=== PATIENT | male | born 1985 | race Caucasian/White ===

== ENCOUNTER 2019-01-23 14:10 | Emergency (ER) | payer MEDICAID, SELFPAY ==
[2019-01-23 14:12] VITALS: BP 124/74; PULSE 106; RESP 18; TEMP 36.7; O2SAT 98; BMI 16.7
--- NOTE | 2019-01-23 14:26 | ED.VISSUMM ---
- ER Visit Summary Date of Service: 01/23/19 Chief Complaint: Bilateral eye pain, redness and watering. History of Present Illness: The patient is a 33 M who wears contact lenses. History of prior polysubstance drug abuse. Patient states he uses contacts for 3 to 4 months. These been for extended periods of time. When he moved in 2 days ago he thinks he injured his eyes. They are red. They are watering. There is no discharge. He denies any visual change. He does have light sensitivity. No prior eye surgery. Physical Examination: Young male no acute distress. Vital signs are stable and afebrile. H EENT exam pupils are unreactive light. Motions are intact. Is mild swelling of the upper and lower lids. Both eyes are injected. They are watering. There is no discharge. There is no periorbital cellulitis. No proptosis. No preauricular lymphadenopathy. There is no facial trauma or otherwise facial swelling. Neck nontender no lymphadenopathy. Lungs clear to auscultation. Heart regular rhythm no murmur. Abdomen soft nontender. Patient moving all 4 extremities. Fluorescein stain to both eyes and tetracaine. Tetracaine gave him relief quickly.'s exam of the right eye showed injection and watering but otherwise unremarkable. Slit-lamp exam the left eye showed a corneal abrasion from 12:00 to 6:00. There was no ulcer. Test Results: None Emergency Department Course and Treatment: Both eyes will be locally anesthetized with tetracaine and fluorescein stain. Slit-lamp examination was performed Treatment Plan: Tetracaine for pain next 24 hours. Bacitracin ophthalmic ointment to both eyes 4 times a day. Follow-up with ophthalmology Dr. Stephenson Disposition: Discharge Impression: Acute bilateral eye pain secondary to contact conjunctivitis Left eye corneal abrasion This note was generated with [employer] dictation software. It may contain incorrect words, spelling, and punctuation that were not noted in review of the chart prior to signing ED Disposition - Plan for ED Patient: Referrals: Care Physician,No Primary [Primary Care Provider] -
--- NOTE | 2019-01-23 14:42 | ED.DEP ---
ED Disposition - Plan for ED Patient: Disposition: Home or Assisted Living Instructions: CORNEAL INJURY, Contact Lens, ED Corneal Abrasion Prescriptions: Bacitracin/Polymyxin B Sulfate [Bacitracin-Polymyxin Eye Oint] 3.5 gm OP 4X/DAY PRN PRN 5 Days #1 oint...g. PRN Reason: Wound Care Prescription Printed Referrals: Daniel Stephenson MD [STAFF PHYSICIAN] - 2 Days Additional Instructions: Cool compresses to both eyes 3 times a day for the next 3 days. Absolutely no contact lens use until okayed by the monitor technician. Use your glasses. When you could restart using your contacts no more than 12 hours at a time. Must be taken out each day. You have irritation of both eyes from your contacts. You also have a corneal abrasion of your left eye. Eye ointment 4 times a day to each eye. Follow-up with the monitor technician Dr. Stephenson.
[2019-01-23] MEDS: Tetracaine 0.5% Ophthalmic Bottle 5 DRP EACH EYE (14:43)
[2019-01-23] MEDS: Fluorescein 1 MG STRIP 1 STRIP EACH EYE (14:43)
== END 2019-01-23 15:06 | disposition home or self-care (01) ==
LOC: ED 14:50
PROVIDERS: Emergency Provider Emergency Medicine; Family Provider Family Medicine; PCP Family Medicine
DX: H10.33 Unspecified acute conjunctivitis, bilateral (principal); H18.822 Corneal disorder due to contact lens, left eye; F15.90 Other stimulant use, unspecified, uncomplicated; F14.90 Cocaine use, unspecified, uncomplicated; F12.90 Cannabis use, unspecified, uncomplicated; F11.90 Opioid use, unspecified, uncomplicated; Z72.0 Tobacco use
CPT/HCPCS: 99282

== ENCOUNTER 2019-08-19 07:12 | Observation (INO) | payer MEDICAID, SELFPAY ==
[2019-08-19] VITALS (10 sets, daily range): BP systolic 99–116; BP diastolic 72–89; PULSE 66–88; RESP 10–23; TEMP 36.1–36.7; O2SAT 100; BMI 19.5; BMI 17.2; BMI 64.3
--- NOTE | 2019-08-19 07:20 | RAD_ITS ---
STUDY: X-RAY - RIGHT ANKLE REASON FOR EXAM: Male, 34 years old. PATIENT ROLLED HIS RIGHT ANKLE. PAIN RIGHT ANKLE AND RIGHT LOWER LEG DISTALLY. TECHNIQUE: 3 view(s) of the ankle. COMPARISON: None. FINDINGS: Acute oblique fracture of the distal tibial shaft extending to the distal tibial metaphyses and anterior malleolus. Normal distal fibula. Normal medial and lateral malleoli. Normal tibiotalar articulation and ankle mortise. Normal visualized talus and calcaneus. The visualized subtalar, talonavicular, calcaneocuboid and tarsal articulations are normal. Soft tissue swelling around the right ankle. RAD/Ankle min 3 Views IMPRESSION: Acute oblique fracture of the right distal tibial shaft extending to the distal tibial metaphyses and anterior tibial malleolus. Electronically Signed: Dutch Mckinley MD at 8:28 EDT , Service support ,
--- NOTE | 2019-08-19 07:20 | RAD_ITS ---
STUDY: X-RAY - RIGHT TIBIA AND FIBULA REASON FOR EXAM: Male, 34 years old. PATIENT ROLLED HIS RIGHT ANKLE. PAIN RIGHT ANKLE AND RIGHT LOWER LEG DISTALLY. TECHNIQUE: 2 view(s) of the tibia and fibula were obtained. COMPARISON: None. FINDINGS: Normal visualized tibia. Normal visualized fibula. The distal tibia and fibula are not included on the radiographs. The soft tissue structures are unremarkable. RAD/Tibia & Fibula 2 Views IMPRESSION: Normal x-ray examination of the visualized tibia and fibula. Electronically Signed: Sim Andujar DO at 8:06 EDT Tel [phone], Service support ,
--- NOTE | 2019-08-19 07:22 | ED.DCSUM_ITS ---
History of Present Illness Chief Complaint: Lower Extremity Injury Informant: Patient Onset: Today Narrative: 34-year-old male with no past medical history presents with concern for right leg pain. States that he slipped on some loose gravel and injured his right ankle and lower extremity. States that the pain is sharp and nonradiating. Denies any head injury. Denies any numbness or tingling. States that he is unable to bear weight. Brought in by EMS. Past Medical History - Allergies and Home Meds Allergies/Adverse Reactions: Allergies No Known Allergies Allergy (Verified 08/19/19 07:13) Past Medical History: None Surgical History: - - ortho Lives: Alone Smoking Status: Current every day smoker Alcohol: None Drugs: None Review of Systems General: Denies: Chills, Fever, Sweats Eyes: Denies: Visual changes - bilaterally, Diplopia ENT: Denies: Rhinorrhea, Sore throat Cardiovascular: Denies: Chest pain, Palpitations Respiratory: Denies: Dyspnea, Cough, Dyspnea on exertion Gastrointestinal: Denies: Abdominal pain, Nausea, Vomiting, Diarrhea, Melena, H ematochezia Genitourinary: Denies: Dysuria, Hematuria, Frequency Musculoskeletal: Reports: Arthralgias. Denies: Back pain, Extremity Pain Skin: Denies: Rash, Wounds Neurological: Denies: Headache, Weakness, Numbness Physical Exam Vital Signs/Narrative: Vital Signs Temp Pulse Resp BP Pulse Ox 08/19/19 07:13 98.1 F 88 16 114/82 H 100 General: Well nourished, Well developed, No Acute Distress Head: Normocephalic, Atraumatic Eyes: Perrl, EOMI ENT: Moist mucous membranes, No rhinorrhea Neck: Supple, Nontender Cardiovascular: Regular rate, Regular rhythm, No murmurs Respiratory: No distress, CTA bilaterally, Chest nontender Abdomen: Soft, Nontender, Nondistended, Normal bowel sounds Back: Nontender, Normal Inspection Extremities: No edema, - - TTP in the anterior RLE over the mid-staley. TTP on the right ankle. Full ROM. Strong and palpable DP and PT pulses. Sensation intact. Skin: Normal color, No rash Neurological: Alert, Oriented x3, Cranial nerves II-XII grossly intact, Normal Strength, Normal Sensation Psychological: Normal affect, Normal Mood Diagnostic/Tx/Re-eval Clinical Impression(s) from Imaging Studies Ankle X-Ray 08/19/19 07:20 IMPRESSION: Acute oblique fracture of the right distal tibial shaft extending to the distal tibial metaphyses and anterior tibial malleolus. Electronically Signed: Dutch Mckinley MD at 8:28 EDT , Service support , Tibia/Fibula X-Ray 08/19/19 07:20 IMPRESSION: Normal x-ray examination of the visualized tibia and fibula. Electronically Signed: Sim Andujar DO at 8:06 EDT Tel [phone], Service support , Brain CT 08/19/19 09:14 IMPRESSION: Normal unenhanced CT scan of the brain and unchanged when compared to 04/07/2010. Electronically Signed: Dutch Mckinley MD at 9:46 EDT , Service support , ADDENDUM: 08/19/[address] 08/19/19 09:15 IMPRESSION: 1. No CT evidence of acute fracture or malalignment of the cervical spine and the craniocervical junction. 2. Linear air lucency behind the right sternocleidomastoid muscle. This may be soft tissue emphysema from fall related injury. Electronically Signed: Dutch Mckinley MD at 10:39 EDT , Service support , Lower Extremity CT 08/19/19 09:56 IMPRESSION: Comminuted fractures noted in the distal end of the tibia extending to the distal articular surface. Electronically Signed: Sim Andujar DO at 10:32 EDT Tel [phone], Service support , Laboratory Data 08/19/19 08/19/19 08/19/19 09:03 09:03 09:03 WBC 6.6 RBC 4.62 Hgb 13.8 Hct 41.4 MCV 89.6 MCH 29.9 MCHC 33.3 RDW Std Deviation 40.9 RDW Coeff of Bennie 12.6 Plt Count 201 MPV 10.3 Immature Gran % (Auto) 0.200 Neut % (Auto) 74.1 H Lymph % (Auto) 14.3 L [place] % (Auto) 9.9 Eos % (Auto) 1.2 Baso % (Auto) 0.3 Absolute Neuts (auto) 4.9 Absolute Lymphs (auto) 0.94 Nucleated RBC % 0 Sodium 139 Potassium 3.5 Chloride 104 Carbon Dioxide 29.0 Anion Gap 6 BUN 18 Creatinine 0.72 Estim Creat Clear Calc 151.20 Est GFR (MDRD) Af Amer 162 Est GFR (MDRD) Non-Af 134 BUN/Creatinine Ratio 24.9 H Glucose 93 Calcium 8.4 L Ethyl Alcohol < 3.0 - Rhythm Strip Rhythm Strip: Sinus Rhythm Rate: 75 - EKG Initial EKG Interpretation: Sinus Rhythm - Sinus rhythm at 75 bpm. TX interval of 164 ms. QTC of 477 ms. No evidence of ST elevation or depression at this time. - Medical Decision Making On arrival patient is mentating appropriately but some of his responses are so mewhat slowed and appears he may be intoxicated. X-ray shows evidence of a right tibial peel on fracture. Spoke initially with orthopedic surgeon Dr. Macdonald who suggested foot and ankle specialist. Patient became more somnolent and was more difficult to arouse. Was given a total of 6 mg of Narcan. Patient is currently protecting his airway and has 100% oxygen saturation on room air. He does continue to be difficult to arouse however. No indication for intubation at this time. Spoke with foot and ankle specialist Dr. Wright who is agreeable with repair following a CT which does show that it is intra-articular. Given the patient's continued somnolence he will be admitted to ICU for observation. Patient was splinted with a posterior as well as sugar tong splint using Ortho-Glass. Patient tolerated procedure well. CT brain and cervical spine shows no acute process. KG nonischemic. Other lab work within normal limits. Admitted in stable condition. - Critical Care Time Critical care time (excluding procedures): 30-74 minutes - Mutliple doses of narcan with multiple re-evaluations and discussions with consultants. Procedures - Lower Extremity Splints Lower Extremity Splint: Orthoglass Splint Fabrication: Pre-fabricated Location: Right - Right posterior with sugar tong splint for ankle fracture. ED Disposition - Plan for ED Patient: Disposition: Acute Care Hospital [facility] Diagnosis: Opiate overdose, Altered mental status, Pilon fracture of right tibia
[2019-08-19] MEDS: Ibuprofen 600 MG Tablet PO (07:28)
[2019-08-19] MEDS: Naloxone 2 MG/2 ML Syringe IV ×3 (09:06→09:58)
--- NOTE | 2019-08-19 09:14 | CT_ITS ---
STUDY: CT BRAIN WITHOUT CONTRAST REASON FOR EXAM: Male, 34 years old. MECHANICAL FALL OFF ROOF RADIATION DOSAGE (If Supplied By Facility): CTDIvol = ( 44.99 ) mGy, DLP = ( 779.24 ) mGycm TECHNIQUE: Transaxial CT imaging of the brain was performed without administration of intravenous contrast material. Coronal and sagittal reconstructions were performed. Individualized dose optimization techniques were used for this CT. COMPARISON: CT head without contrast 04/07/2010. FINDINGS: Normal soft tissue structures. Normal calvarium. Normal size ventricles and extra-axial spaces for the patient''s age. Normal white matter tracts of the cerebral hemispheres. Normal basal ganglia and thalami. Normal brainstem. Normal cerebellum. There is no intracranial hemorrhage. There are no findings of an acute ischemic infarction. Normal visualized paranasal sinuses. CT/Brain/Head without Contrast IMPRESSION: Normal unenhanced CT scan of the brain and unchanged when compared to 04/07/2010. Electronically Signed: Dutch Mckinley MD at 9:46 EDT , Service support ,
--- NOTE | 2019-08-19 09:15 | CT_ITS ---
STUDY: CT CERVICAL SPINE WITHOUT CONTRAST REASON FOR EXAM: Male, 34 years old. MECHANICAL FALL OFF ROOF. Hard to arouse. RADIATION DOSAGE (If Supplied By Facility): CTDIvol = ( 16.20 ) mGy, DLP = ( 345.02 ) mGycm TECHNIQUE: High resolution transaxial imaging was performed without contrast material. Sagittal and coronal images were reconstructed. Individualized dose optimization techniques were used for this CT. COMPARISON: None FINDINGS: Normal craniovertebral junction. Normal anterior atlantoaxial articulation. Normal odontoid process. Mild straightening of the C-spine curve. Normal vertebral bodies and posterior osseous elements. C2-3: Normal endplates. Normal disc height and morphology. Normal central canal and intervertebral neuroforamina. C3-4: Normal endplates. Normal disc height and morphology. Normal central canal and intervertebral neuroforamina. C4-5: Normal endplates. Normal disc height and morphology. Normal central canal and intervertebral neuroforamina. C5-6: Normal endplates. Normal disc height and morphology. Normal central canal and intervertebral neuroforamina. C6-7: Normal endplates. Normal disc height and morphology. Normal central canal and intervertebral neuroforamina. C7-T1: Normal endplates. Normal disc height and morphology. Normal central canal and intervertebral neuroforamina. T1-T2: Normal endplates. Normal disc height and morphology. Normal central canal and intervertebral neural foramina. Normal visualized soft tissue structures. CT/Spine Cervical without Contras IMPRESSION: 1. No CT evidence of acute fracture or malalignment of the cervical spine and the craniocervical junction. 2. Linear air lucency behind the right sternocleidomastoid muscle. This may be soft tissue emphysema from fall related injury. Electronically Signed: Dutch Mckinley MD at 10:39 EDT , Service support ,
[2019-08-19 09:16] LABS: Absolute Lymphocyte Count 0.94 X10^3/uL (0.83-4.51); Absolute Neutrophil Count 4.9 X10^3/uL (2.0-7.7); Basophil# 0.02 X10^3/uL; Basophil% 0.3 % (0-1); Eosinophil# 0.08 X10^3/uL; Eosinophils% 1.2 % (0-5); Hematocrit 41.4 % (40-54); Hemoglobin 13.8 g/dL (13.0-16.5); Lymphocyte # 0.94 X10^3/ul (4.0); Lymphocyte % 14.3 % (19-41); Mean Corp Hgb Conc 33.3 g/dL (32-36); Mean Corpuscular Hgb 29.9 pg (27.0-32.0); Mean Corpuscular Volume 89.6 fL (80-94); Mean Platelet Vol. 10.3 fl (6.2-12.0); Monocyte# 0.65 X10^3/uL; Monocyte% 9.9 % (0-10); NRBC Flagged by Analyzer 0 % (0-5); Neutrophil # 4.89 X10^3/uL (2.7-7.7); Neutrophil % 74.1 % (47-70); Platelet Count 201 K/mm3 (150-450); RBC Distribution Width CV 12.6 % (11.6-14.6); RBC Distribution Width SD 40.9 fl (35.1-43.9); Red Blood Count 4.62 M/mm3 (4.6-6.2); White Blood Count 6.6 K/mm3 (4.4-11.0)
[2019-08-19 09:25] LABS: Anion Gap 6 (5-15); BUN 18 mg/dL (7-18); BUN/Creat Ratio 24.9 RATIO (10-20); Calcium,Total 8.4 mg/dL (8.5-10.1); Chloride 104 mmol/L (98-107); Creatinine, Serum 0.72 mg/dL (0.70-1.30); EST Glomerular Filtration Rate 134 mL/min (>60); Est Glom Filt Rate - Afr Amer 162 mL/min (>60); Glucose 93 mg/dL (74-106); Potassium 3.5 mmol/L (3.5-5.1); Sodium Level 139 mmol/L (136-145)
--- NOTE | 2019-08-19 09:34 | EKG12_ITS ---
Test Reason : PRE-OP Blood Pressure : / mmHG Vent. Rate : 075 BPM Atrial Rate : 075 BPM P-R Int : 164 ms QRS Dur : 098 ms QT Int : 428 ms P-R-T Axes : 066 070 067 degrees QTc Int : 477 ms Normal sinus rhythm Normal ECG Confirmed by WALT MORATAYA ([id number]), sound editor HAMLET CHO ([id number]) on 08/22/2019 2:16:49 PM Referred By: LANI Confirmed By:WALT MORATAYA
--- NOTE | 2019-08-19 09:56 | CT_ITS ---
STUDY: CT RIGHT ANKLE WITHOUT CONTRAST REASON FOR EXAM: Male, 34 years old. RT ANKLE FX after falling from roof. RADIATION DOSAGE (If Supplied By Facility): CTDIvol = ( 15.35 ) mGy, DLP = ( 430.52 ) mGycm TECHNIQUE: Thin section transaxial imaging of the ankle was obtained, with sagittal and coronal reconstructed images. Individualized dose optimization techniques were used for this CT. COMPARISON: None. FINDINGS: Normal visualized distal fibula. Comminuted fractures noted in the distal end of the tibia extending to the distal articular surface. Normal tibiotalar articulation and talar dome. Normal talus, calcaneus, navicular and cuboid tarsal bones. Normal subtalar, talonavicular and calcaneocuboid articulations. Normal navicular-cuneiform, cuneiform tarsal bones and intercuneiform articulations. Normal tarsometatarsal articulations and visualized metatarsi. The soft tissue structures are grossly normal. CT/Extremity Lower without Contra IMPRESSION: Comminuted fractures noted in the distal end of the tibia extending to the distal articular surface. Electronically Signed: Sim Andujar DO at 10:32 EDT Tel [phone], Service support ,
[2019-08-19 10:05] LABS: Alcohol, Blood (Medical)-Serum < 3.0 mg/dL
--- NOTE | 2019-08-19 10:42 | NURSING ---
ICU DRUG OD, SOMNOLENT, AIRWAY MONITOR ENOCH
[2019-08-19 10:50] LABS: International Normalized Ratio 1.2; Prothrombin Time (Protime)PT. 14.7 SECONDS (11.7-14.9)
--- NOTE | 2019-08-19 11:12 | NURSING ---
ICU 6
--- NOTE | 2019-08-19 11:24 | ED.RN ---
Pt had a pink pill on him with no markings. Due to pt being narcaned 3 times and still being very lethargic [facility] was called to dispose of the pill. Juan Carlos Pathak picked pill up to be disposed of
--- NOTE | 2019-08-19 11:31 | ED.RN ---
Pts mother called and aware that pt is in ICU
--- NOTE | 2019-08-19 13:07 | PCM.HP.STD ---
Problem List (1) Polysubstance (including opioids) dependence, daily use Status: Acute (2) Unresponsiveness Status: Acute (3) Opiate overdose Status: Acute (4) Altered mental status Status: Acute (5) Pilon fracture of right tibia Status: Acute History of Present Illness Date of Admission: 08/19/19 Chief Complaint: Found unresponsive in ER The patient is a 34 year old M with history of polysubstance use including opioids came to ER after mechanical fall and right leg injury. It was found right distal oblique tibial fracture extending to anterior tibial malleolus intra-articular line. Patient was verbal until 9 AM subsequently it was found that patient was unconscious in ER. As per nursing staff, he uses opioid, benzodiazepines and crystal meth and brought some drugs with him and probably took in the ER and subsequently was found unconscious. Patient was given 6 mg of IV Narcan but he did not wake up. As patient was maintaining his airways he was not intubated and admitted to ICU for further airway monitoring Patient vitals are blood pressure 130s/83, pulse ox 100% on room air respiratory rate 23 but his eyes are closed and minimally responsive to deep sternal rub and pinching the cheeks. He has spontaneous erection. As per ICU nurse, his pupils are mildly dilated too. [] History is mainly from medical record, ER physician and nursing staff discussion. Past Medical History Allergies No Known Allergies Allergy (Verified 08/19/19 07:13) Home Medications: Ambulatory Orders Medication Instructions Recorded Pregabalin 200 mg PO TID 01/23/19 Buprenorphine HCl/Naloxone HCl 1 ea SL BID 08/19/19 [Buprenorp-Nalox 8-2 mg Sl Film] Surgical History: - - ortho Lives: Alone Smoking Status: Current every day smoker Drugs: Cocaine, Heroin, - - Crystal meth and benzodiazepine - *Family History Paternal History Items: - - Patient is unconscious to give any history Review of Systems Unable to obtain accurate/complete ROS d/t: Patient is unconscious and unresponsive. Nonverbal VTE Information - Inpt Only VTE Present on Admission: No VTE Mechan Device Prophylaxis: None VTE Pharm Prophylaxis ordered?: Yes Patient Problems: Active and Suspected Problems Opiate overdose (Acute) Altered mental status (Acute) Pilon fracture of right tibia (Acute) Polysubstance (including opioids) dependence, daily use (Acute) Unresponsiveness (Acute) - Physical Exam Vitals/I&O's: Vital Signs Temp Pulse Resp BP Pulse Ox 96.9 F L 69 14 104/76 100 08/19/19 11:15 08/19/19 11:46 08/19/19 11:45 08/19/19 11:45 08/19/19 11:45 Oxygen Delivery Method Room Air Weight: 141 lb 12.116 oz Body Mass Index (BMI) 17.2 General: Alert, Oriented x3, Cooperative HEENT: Atraumatic, PERRLA, EOMI, Normocephalic Oral: No Gingival or Mucosal Lesions/ Ulcerations, Dry Mucosa Neck: Supple, No JVD, Negative Carotid Bruits Lungs: Clear to auscultation, No rhonchi, No wheeze, No rales, Diminished - Air entry diminished in bilateral lung bases, - - Maintaining his saturation. No tachypnea Cardiovascular: Regular rate, Regular Rhythm, Normal S1, Normal S2, No murmurs Abdomen: Bowel Sounds Present, Soft, Non Tender, Non-Distended Extremities: No edema, Capillary Refill Less than 3 Seconds Skin: No rashes, No breakdown Musculoskeletal: Tenderness, - - Right ankle fracture with a splint and Chon wrap bandage. Neurological: Cranial nerves II-XII grossly intact, Deep Tendon Reflexes 2+/4 and Symmetrical, Neuro grossly intact Psych/Mental Status: Normal Affect, Appropriate Laboratory Results 08/19/19 09:03: WBC 6.6, RBC 4.62, Hgb 13.8, Hct 41.4, MCV 89.6, MCH 29.9, MCHC 33.3, RDW Std Deviation 40.9, RDW Coeff of Bennie 12.6, Plt Count 201, MPV 10.3, Immature Gran % (Auto) 0.200, Neut % (Auto) 74.1 H, Lymph % (Auto) 14.3 L, [place] % (Auto) 9.9, Eos % (Auto) 1.2, Baso % (Auto) 0.3, Absolute Neuts (auto) 4.9, Absolute Lymphs (auto) 0.94, Nucleated RBC % 0 08/19/19 09:03: Sodium 139, Potassium 3.5, Chloride 104, Carbon Dioxide 29.0, Anion Gap 6, BUN 18, Creatinine 0.72, Estim Creat Clear Calc 151.20, Est GFR (MDRD) Af Amer 162, Est GFR (MDRD) Non-Af 134, BUN/Creatinine Ratio 24.9 H, Glucose 93, Calcium 8.4 L 08/19/19 09:03: Hepatitis A IgM Ab Pending, Hep Bs Antigen Pending, Hep B Core IgM Ab Pending, Hepatitis C Ab (EIA) Pending 08/19/19 09:03: Ethyl Alcohol < 3.0 08/19/19 10:33: PT 14.7, INR 1.2 Current Medications Albuterol Sulfate (Ventolin Aerosols) 2.5 mg INHALATION Q2H PRN PRN PRN Reason: SOB/Wheezing Dextrose (D50w Syringe) 0 gm IV X1 PRN; Protocol PRN Reason: Hypoglycemia Glucagon () 1 mg IM .X1 PRN PRN Reason: Hypoglycemia Lactated Ringer's () 1,000 mls @ 100 mls/hr IV .Q10H VERA Nitroglycerin (Nitrostat) 0.4 mg SUBLINGUAL Q5M PRN PRN Reason: CARDIAC/CHEST PAIN Ondansetron HCl (Zofran) 4 mg IV Q8H PRN PRN PRN Reason: NAUSEA/VOMITING Prochlorperazine Edisylate (Compazine Iv) 5 mg IV Q4H PRN PRN PRN Reason: Breakthrough Nausea/Vomiting Assessment/Plan All Active Problems Opiate overdose (Acute) Altered mental status (Acute) Pilon fracture of right tibia (Acute) Polysubstance (including opioids) dependence, daily use (Acute) Unresponsiveness (Acute) 34-year-old gentleman came to ER after mechanical fall and right ankle fracture, subsequently potentially/probably took some street drugs and got unresponsive unconscious. No response after 6 mg of IV Narcan but maintaining oxygenation. 1. Acute toxic encephalopathy probably/potential secondary to substance use: Patient has multiple ER visits for polysubstance use, in 2016 for heroin overdose. As per ER physician note he has polysubstance drug use, antisocial personality disorder. Patient has not urinated for U tox sample. Serum alcohol normal. EKG shows normal sinus rhythm at 75 bpm. QTc interval 477 ms. Liver chemistry test pending. Previous U tox was positive of amphetamine, methamphetamine, benzodiazepine, cocaine, barbiturates cannabis and opioids. Magnesium, lactic acid, troponin, TCA urine drug screen and ammonia ordered. Keep patient n.p.o. 2. Acute communicated fracture in distal end of tibia extending to anterior medial malleolus, distal articular surface secondary to mechanical fall: Sports Director Dr. Whyte is been consulted from ER. Further care as per cardiovascular invasive specialist. Patient on home medication Lyrica 200 mg 3 times daily. Exact indication unclear we will hold it. 3. DVT prophylaxis moderate risk in view of fracture: On Lovenox 40 mg subcu daily Inpatient E&M: 36347 Init Hosp L3
[2019-08-19 14:11] LABS: Base Excess 0 mmol/L (-2 to +2); Bicarbonate 26.1 mmol/L (22-26); PO2 79 mmHG (75-100); SO2 95 % (95-99); Total Carbon Dioxide 28 mmol/L; pCO2 48.5 mmHg (35-45); pH 7.34 (7.35-7.45)
[2019-08-19 14:12] LABS: Allen Test POS; Blood Gas Specimen Type ART; O2 Delivery Device Room Air; SITE L RADIAL
--- NOTE | 2019-08-19 14:21 | CON.PCM_ITS ---
Problem List (1) Pilon fracture of right tibia Status: Acute Qualifiers: Encounter type: initial encounter Fracture type: closed (2) Polysubstance (including opioids) dependence, daily use Status: Acute (3) Unresponsiveness Status: Acute Reason for Consult Date of Consultation: 08/19/19 Reason for Consultation: right ankle fracture History of Present Illness: The patient is a 34 year old M with seen bedside in the emergency room after mechanical fall related to polysubstance abuse. Per chart review he was verbal until 9 AM in which he transition into an unconscious state while in the emergency room. Per chart review he is a prior user of opioids, benzodiazepines, and crystal meth in which he brought some drugs with him today. After Narcan administration he has remained unresponsive. He was transitioned to the intensive care unit for airway monitoring and will be treated for overdose at this time. Intubation was not indicated at this time. He remains unresponsive and unable to participate in my consultation. Past Medical History Allergies No Known Allergies Allergy (Verified 08/19/19 07:13) Home Medications: Ambulatory Orders Medication Instructions Recorded Pregabalin 200 mg PO TID 01/23/19 Buprenorphine HCl/Naloxone HCl 1 ea SL BID 08/19/19 [Buprenorp-Nalox 8-2 mg Sl Film] Surgical History: - - ortho Lives: Alone Smoking Status: Current every day smoker Alcohol: None Drugs: Cocaine, Heroin, - - Crystal meth and benzodiazepine - *Family History Paternal History Items: - - Patient is unconscious to give any history Review of Systems Unable to obtain accurate/complete ROS d/t: He is unresponsive and I am unable to obtain his review of system - Physical Exam Vitals/I&O's: Vital Signs Temp Pulse Resp BP Pulse Ox 96.9 F L 69 14 104/76 100 08/19/19 11:15 08/19/19 11:46 08/19/19 11:45 08/19/19 11:45 08/19/19 11:45 Oxygen Delivery Method Room Air Weight: 64.3 kg Body Mass Index (BMI) 17.2 General: - - Nonresponsive Extremities: No cyanosis, Capillary Refill Less than 3 Seconds - All digits bilateral, No Calf Tenderness - Compartments of lower extremity remain soft to palpate. There is no skin tenting bogginess or fluctuance. The ankle remains in a rectus position, Edema - Mild edema right ankle, Peripheral Pulses Normal - 2 out of 4 PT and DP pulses bilateral Skin: - - There are no fracture blisters. The skin turgor remains normal and there is hair present to the leg and foot Musculoskeletal: No Muscle Wasting Psych/Mental Status: - - Unable to assess Laboratory Results 08/19/19 09:03: WBC 6.6, RBC 4.62, Hgb 13.8, Hct 41.4, MCV 89.6, MCH 29.9, MCHC 33.3, RDW Std Deviation 40.9, RDW Coeff of Bennie 12.6, Plt Count 201, MPV 10.3, Immature Gran % (Auto) 0.200, Neut % (Auto) 74.1 H, Lymph % (Auto) 14.3 L, [place] % (Auto) 9.9, Eos % (Auto) 1.2, Baso % (Auto) 0.3, Absolute Neuts (auto) 4.9, Absolute Lymphs (auto) 0.94, Nucleated RBC % 0 08/19/19 09:03: Sodium 139, Potassium 3.5, Chloride 104, Carbon Dioxide 29.0, Anion Gap 6, BUN 18, Creatinine 0.72, Estim Creat Clear Calc 151.20, Est GFR (MDRD) Af Amer 162, Est GFR (MDRD) Non-Af 134, BUN/Creatinine Ratio 24.9 H, Glucose 93, Calcium 8.4 L 08/19/19 09:03: Hepatitis A IgM Ab Pending, Hep Bs Antigen Pending, Hep B Core IgM Ab Pending, Hepatitis C Ab (EIA) Pending 08/19/19 09:03: Ethyl Alcohol < 3.0 08/19/19 10:33: PT 14.7, INR 1.2 08/19/19 13:15: COVID-19 ([place]) Pending 08/19/19 14:00: Specimen Type ART, Sample Site L RADIAL, pH 7.34 L, Bicarbonate Actual 26.1 H, POC Total CO2 28, Base Excess 0, O2 Saturation 95, ABG pCO2 48.5 H, ABG pO2 79, Betito Test POS, O2 Delivery Device Room Air 08/19/19 14:10: Tricyclics Screen Pending, Ur Drug Screen Comment Pending Current Medications Albuterol Sulfate (Ventolin Aerosols) 2.5 mg INHALATION Q2H PRN PRN PRN Reason: SOB/Wheezing Dextrose (D50w Syringe) 0 gm IV X1 PRN; Protocol PRN Reason: Hypoglycemia Enoxaparin Sodium (Lovenox) 40 mg SC DAILY VERA Glucagon () 1 mg IM .X1 PRN PRN Reason: Hypoglycemia Lactated Ringer's () 1,000 mls @ 100 mls/hr IV .Q10H VERA Nitroglycerin (Nitrostat) 0.4 mg SUBLINGUAL Q5M PRN PRN Reason: CARDIAC/CHEST PAIN Ondansetron HCl (Zofran) 4 mg IV Q8H PRN PRN PRN Reason: NAUSEA/VOMITING Prochlorperazine Edisylate (Compazine Iv) 5 mg IV Q4H PRN PRN PRN Reason: Breakthrough Nausea/Vomiting Assessment/Plan All Active Problems Opiate overdose (Acute) Altered mental status (Acute) Pilon fracture of right tibia (Acute) Polysubstance (including opioids) dependence, daily use (Acute) Unresponsiveness (Acute) Right minimally displaced tibia pilon fracture, closed Drug overdose with associated nonresponsive status Polysubstance abuse history I reviewed and discussed his case with the emergency room physician and performed a chart review. His vascular status appears to be intact. He was admitted for drug overdose and was transferred to the intensive care unit. His airway will be monitored. From a lower extremity fracture standpoint, I do recommend open reduction internal fixation upon medical stability when this is appropriate. I recommend he maintains a strict nonweightbearing status to the right lower extremity. A well-padded posterior mold and sugar tong splint was applied by the emergency room physician. I reviewed his x-rays and CT scan. There appears to be two main intra-articular cortical interruptions. I will discuss the case with the medicine team in regards to appropriate timing for surgery and medical plan. His CBC and CMP were reviewed without gross abnormalities. His full drug panel screen is pending still. Please not hesitate to call if you have any questions. Nita Enamorado DPM, [facility] [phone]
[2019-08-19 14:37] LABS: TCA Internal Control -Neg LINE = VALID (- VALID); TCA Urine Drug Screen Negative (<1000 ng/mL)
[2019-08-19 14:49] LABS: Amphetamine Urine VISTA POSITIVE (<1000 ng/mL); Barbiturate Urine VISTA NEGATIVE (< 200 ng/mL); Benzodiazepine Urine VISTA POSITIVE (< 200 ng/mL); Cocaine Urine VISTA NEGATIVE (< 300 ng/mL); Ecstacy Urine VISTA POSITIVE (< 500 ng/mL); Methadone Urine VISTA NEGATIVE (< 300 ng/mL); PCP Urine VISTA NEGATIVE (< 25 ng/mL); THC Urine VISTA POSITIVE (< 50 ng/mL); Vista UDS pH Range 5
--- NOTE | 2019-08-19 15:11 | DS.PCM_ITS ---
Discharge Date and Diagnosis Date of Admission: 08/19/19 Date of Discharge: 08/20/19 - Primary Discharge Diagnosis Acute Problems: Active Problems Opiate overdose (Acute) Altered mental status (Acute) Pilon fracture of right tibia (Acute) Polysubstance (including opioids) dependence, daily use (Acute) Unresponsiveness (Acute) Hospital Course and Treatment Imaging Results: 08/19/19 07:20 XRAY Ankle [Ankle min 3 Views] [RAD] Stat Xray Tibia [Tibia & Fibula 2 Views] [RAD] Stat 08/19/19 09:14 CT Brain [Brain/Head without Contrast] [CT] Stat 08/19/19 09:15 CT Cervical [Spine Cervical without Contras] [CT] Stat 08/19/19 09:56 CT Lower [Extremity Lower without Contra] [CT] Stat Summary of Care Provided: The patient is a 34 year old gentleman came to ER after mechanical fall and right ankle fracture, subsequently potentially/probably took some street drugs and got unresponsive unconscious. No response after 6 mg of IV Narcan but maintaining oxygenation. 1. Acute toxic encephalopathy probably/potential secondary to substance use: Patient woke up in ICU and wanted to sign AMA. His U tox was positive of amphetamine, methamphetamine, benzodiazepine, cannabinoids. Serum alcohol negative. EKG shows normal sinus rhythm at 75 bpm. QTc interval 477 ms. ABG shows 7.34/40 9/ on room air. Viral hepatitis positive for chronic hepatitis C. 2. Acute communicated fracture in distal end of tibia extending to anterior medial malleolus, distal articular surface secondary to mechanical fall: Business Information Analyst Dr. Whyte saw the patient and was planning for OR on Thursday but patient signed AMA. Patient left AMA Laboratory Results 08/19/19 09:03: Hepatitis A IgM Ab Negative, Hep Bs Antigen Negative, Hep B Core IgM Ab Negative, Hepatitis C Ab (EIA) >11.0 H 08/19/19 13:15: COVID-19 ([place]) Not Detected 08/19/19 14:00: Specimen Type ART, Sample Site L RADIAL, pH 7.34 L, Bicarbonate Actual 26.1 H, POC Total CO2 28, Base Excess 0, O2 Saturation 95, ABG pCO2 48.5 H, ABG pO2 79, Betito Test POS, O2 Delivery Device Room Air 08/19/19 14:10: Urine Opiates Screen NEGATIVE, Urine Methadone Screen NEGATIVE, Ur Barbiturates Screen NEGATIVE, Ur Phencyclidine Scrn NEGATIVE, Ur Amphetamines Screen POSITIVE H, U Methamphetamin-MDMA POSITIVE H, U Benzodiazepines Scrn POSITIVE H, Urine Cocaine Screen NEGATIVE, U Cannabinoids Screen POSITIVE H, Ur Drug Screen Comment 08/19/19 14:10: Tricyclics Screen Negative, Ur Drug Screen Comment Subjective: Please see H&P on the same date when the patient left AMA Patient woke up about 2:30 PM and wanted to sign AMA. He feels jittery and was upset mild angry why he was given Narcan to reverse. I tried to convince him that we will treat his opioid withdrawal symptoms with buprenorphine and ankle fracture pain with pain medications along with other supportive medications. He did not agree and wants to sign AMA. At last, despite knowing his risk of withdrawal syndrome and ankle fracture complication of further causing displacement and pain which might culminate into , he signed AMA. On physical exam: Patient woke up. Is awake alert oriented x3. He answers orientation questions well. - Physical Exam Vitals/I&O's: Vital Signs Temp Pulse Resp BP Pulse Ox 96.9 F L 69 14 104/76 100 08/19/19 11:15 08/19/19 11:46 08/19/19 11:45 08/19/19 11:45 08/19/19 11:45 Oxygen Delivery Method Room Air Weight: 141 lb 12.116 oz Body Mass Index (BMI) 17.2 Laboratory Results 08/19/19 09:03: WBC 6.6, RBC 4.62, Hgb 13.8, Hct 41.4, MCV 89.6, MCH 29.9, MCHC 33.3, RDW Std Deviation 40.9, RDW Coeff of Benine 12.6, Plt Count 201, MPV 10.3, Immature Gran % (Auto) 0.200, Neut % (Auto) 74.1 H, Lymph % (Auto) 14.3 L, Noble % (Auto) 9.9, Eos % (Auto) 1.2, Baso % (Auto) 0.3, Absolute Neuts (auto) 4.9, Absolute Lymphs (auto) 0.94, Nucleated RBC % 0 08/19/19 09:03: Sodium 139, Potassium 3.5, Chloride 104, Carbon Dioxide 29.0, Anion Gap 6, BUN 18, Creatinine 0.72, Estim Creat Clear Calc 151.20, Est GFR (MDRD) Af Amer 162, Est GFR (MDRD) Non-Af 134, BUN/Creatinine Ratio 24.9 H, Glucose 93, Calcium 8.4 L 08/19/19 09:03: Hepatitis A IgM Ab Pending, Hep Bs Antigen Pending, Hep B Core IgM Ab Pending, Hepatitis C Ab (EIA) Pending 08/19/19 09:03: Ethyl Alcohol < 3.0 08/19/19 10:33: PT 14.7, INR 1.2 08/19/19 13:15: COVID-19 ([place]) Pending 08/19/19 14:00: Specimen Type ART, Sample Site L RADIAL, pH 7.34 L, Bicarbonate Actual 26.1 H, POC Total CO2 28, Base Excess 0, O2 Saturation 95, ABG pCO2 48.5 H, ABG pO2 79, Betito Test POS, O2 Delivery Device Room Air 08/19/19 14:10: Urine Opiates Screen NEGATIVE, Urine Methadone Screen NEGATIVE, Ur Barbiturates Screen NEGATIVE, Ur Phencyclidine Scrn NEGATIVE, Ur Amphetamines Screen POSITIVE H, U Methamphetamin-MDMA POSITIVE H, U Benzodiazepines Scrn POSITIVE H, Urine Cocaine Screen NEGATIVE, U Cannabinoids Screen POSITIVE H, Ur Drug Screen Comment 08/19/19 14:10: Tricyclics Screen Negative, Ur Drug Screen Comment Current Medications Albuterol Sulfate (Ventolin Aerosols) 2.5 mg INHALATION Q2H PRN PRN PRN Reason: SOB/Wheezing Dextrose (D50w Syringe) 0 gm IV X1 PRN; Protocol PRN Reason: Hypoglycemia Enoxaparin Sodium (Lovenox) 40 mg SC DAILY VERA Glucagon () 1 mg IM .X1 PRN PRN Reason: Hypoglycemia Lactated Ringer's () 1,000 mls @ 100 mls/hr IV .Q10H VERA Nitroglycerin (Nitrostat) 0.4 mg SUBLINGUAL Q5M PRN PRN Reason: CARDIAC/CHEST PAIN Ondansetron HCl (Zofran) 4 mg IV Q8H PRN PRN PRN Reason: NAUSEA/VOMITING Prochlorperazine Edisylate (Compazine Iv) 5 mg IV Q4H PRN PRN PRN Reason: Breakthrough Nausea/Vomiting Home Medications: Medications to take at Discharge Pregabalin 200 mg PO TID 01/23/19 Buprenorphine HCl/Naloxone HCl [Buprenorp-Nalox 8-2 mg Sl Film] 1 ea SL BID 08/19/19 Primary Care Physician: Dionne Hernandez [Primary Care Provider] - Medical Necessity - Tobacco Use Smoking Status: Current every day smoker Meaningful Use Info Meaningful Use Diagnoses (Choose all that apply): None applicable Inpatient E&M: 00966 Disch Hosp
--- NOTE | 2019-08-19 15:37 | NURSING ---
pt signed ama papers at 1450 per pt request. pt states,i have a ride home, wheel me to the door outside. discussed benefits and risks of leaving ama. dr. cid also spoke thoroughly with patient. iv d/c,d and gupta catheter d/c'd prior to patient leaving.
[2019-08-20 05:06] LABS: HEPATITIS B SURFACE AG Negative (Negative); Hepatitis A IgM Antibody Negative (Negative); Hepatitis B Core AB IgM Negative (Negative)
[2019-08-20 13:09] LABS: Hep C Antibodies >11.0 s/co ratio (0.0-0.9)
== END 2019-08-19 15:25 | disposition home or self-care (01) ==
LOC: ED 10:24 → ICU 10:46
PROVIDERS: Admitting Provider Internal Medicine; Emergency Provider Emergency Medicine; PCP Family Medicine; Visit Provider Internal Medicine
DX: S82.871A Displaced pilon fracture of right tibia, initial encounter for closed fracture (principal); T40.0X1A Poisoning by opium, accidental (unintentional), initial encounter; G92 Toxic encephalopathy; F11.20 Opioid dependence, uncomplicated; F17.200 Nicotine dependence, unspecified, uncomplicated; W01.0XXA Fall on same level from slipping, tripping and stumbling without subsequent striking against object, initial encounter; Y93.9 Activity, unspecified; Y92.9 Unspecified place or not applicable; Z79.899 Other long term (current) drug therapy; F15.20 Other stimulant dependence, uncomplicated; F13.20 Sedative, hypnotic or anxiolytic dependence, uncomplicated; F60.2 Antisocial personality disorder
CPT/HCPCS: 36600; 70450; 72125; 73590; 73610; 73700; 76377; 80048; 80074; 80307; 80320; 82803; 85025; 85610; 87635; 93005; 96374; 96376; 99218; 99285; A4216; G0378; G0480; U0003

== ENCOUNTER 2020-06-13 02:47 | Emergency (ER) | payer MEDICAID, SELFPAY ==
[2019-08-19 11:27] VITALS: BMI 17.2
[2020-06-13 02:48] VITALS: BP 179/150; PULSE 94; RESP 16; TEMP 36.9; O2SAT 100; BMI 18.3
[2020-06-13 03:01] VITALS: BP 179/150; PULSE 106; RESP 24; TEMP 36.9; O2SAT 97
--- NOTE | 2020-06-13 03:06 | EX.ED.DYSGE1 ---
HPI History of Present Illness Chief Complaint: Abd Pain Narrative Narrative: 35-year-old male presenting with abdominal pain which she describes as central between his umbilicus and his epigastrium. This started about 7 AM yesterday. He has had nausea and vomiting since. He states he is not able to hold down any food or fluids. He denies fever or chills. He denies diarrhea or constipation. Patient has history of opioid abuse and states he is on Suboxone. Patient denies any trauma. He denies any abdominal surgical history. [facility] Medical History (Updated 06/13/20 @ 02:55 by Tracy Bunch RN) Substance abuse Home Medications buprenorphine-naloxone 1 ea SL BID 08/19/19 [History Last Taken Unknown] gabapentin [Neurontin] 400 mg TID 06/13/20 [History Last Taken Unknown] ondansetron HCl [Zofran] 4 mg PO Q8H PRN #14 tab 06/13/20 [Rx Last Taken Unknown] promethazine 25 mg PO Q6H PRN PRN #14 tablet 06/13/20 [Rx Last Taken Unknown] Allergy/AdvReac Type Severity Reaction Status Date / Time No Known Allergies Allergy Verified 08/19/19 07:13 Social History Smoking Status: Former smoker ROS ROS ED Constitutional Constitutional ED: Denies chills, fever(s) or sweats Eyes Eyes: Denies blurry vision or change in vision ENT ENT ED: Denies ear pain, rhinorrhea or sore throat Cardiovascular Cardiovascular: Denies chest pain, palpitations or racing heartbeat Respiratory/Chest Respiratory/Chest: Denies cough, dyspnea or sputum Gastrointestinal Gastrointestinal: Reports abdominal pain and vomiting; Denies constipation or diarrhea Genitourinary Genitourinary ED: Denies dysuria, hematuria or urinary frequency Musculoskeletal Musculoskeletal: Denies arthralgias, myalgias or neck pain Integumentary Denies abscess, Abrasions or rash Neurologic Neurologic: Denies headache(s), paresthesias or weakness Psychiatric Psychiatric: Denies anxiety, depression, suicidal ideation or suicidal thoughts Endocrine Endocrinology: Denies polydipsia or polyuria EXAM Physical Exam Const Vital Signs: 06/13/20 02:48 06/13/20 03:01 06/13/20 05:01 Temperature 98.5 F 98.5 F 98.9 F Temperature Source Oral Oral Oral Pulse Rate 94 106 H 98 Respiratory Rate 16 24 H 17 Blood Pressure 179/150 H 179/150 H 129/92 H Blood Pressure Mean 159 159 104 Pulse Ox 100 97 100 Oxygen Delivery Method Room Air Room Air Room Air 06/13/20 05:02 Temperature 98.9 F Temperature Source Oral Pulse Rate 112 H Respiratory Rate 17 Blood Pressure 129/92 H Blood Pressure Mean 104 Pulse Ox 100 Oxygen Delivery Method Room Air General Appearance ED: Negative for pallor HEENT Reports normocephalic, head/scalp atraumatic and moist mucous membranes Eyes PERRL and EOMs intact bilaterally General Eye ED: Negative for scleral icterus Neck no lymphadenopathy and supple Chest Wall inspection of chest normal and palpation of chest normal Resp normal respiratory effort and clear to auscultation bilaterally Auscultation: Negative for rales, rhonchi or wheezes Cardio regular rate and regular rhythm GI non-distended; Negative for hepatosplenomegaly GI Narrative: Tenderness to palpation in the epigastrium and the periumbilical region. Palpation: tender Narrative: Deferred Back/Spine no CVA tenderness General Back: Negative for CVA tenderness Cervical Spine: Negative for cervical spine tenderness Extremity normal to inspection General Extremety ED: Yes edema and tenderness General Extremity: edema Neuro oriented x3 and CN's II-XII intact bilaterally Sensorium / Orientation: alert Motor Exam: strength 5/5 throughout Psych mental status grossly normal Attitude: No agitated Skin no rashes or lesions noted and no wounds General Skin Exam: Negative for jaundice or pallor MDM MDM MDM Narrative Medical decision making narrative: Patient presents with nausea and vomiting as well as abdominal pain which is been present for almost 24 hours. Patient states that due to his history of opioid abuse that his veins are difficult to establish IVs or draw blood. He is initially given a dose of IM Toradol and IM Phenergan. Patient refuses to have an attempt to establish peripheral IV as he states that nobody can get one. He states that even his pain management physicians have given up at times. Patient does not have a visualized EEG that I could attempt. Patient states that in the past they have had to do femoral sticks on him. Patient care was delayed by this. Patient was given 2 shots of IM morphine after review the medical record and noted that he was not in the hospital recently. He states that he has been off of opiates for 3 years. He is given Phenergan and Zofran with some improvement. Patient CT abdomen pelvis performed without contrast due to inability to establish IV access was negative for acute surgical findings however he does have a large stool burden. Patient's lab work was unremarkable with exception of a mildly low potassium. I will withhold treatment given his nausea and vomiting. Patient will be discharged home to follow-up with his PCP. He is given return precautions. Patient stable at this time. Impression: 1. abdominal pain 2. Nausea and vomiting Lab Data Labs: Laboratory Results - last 24 hr 06/13/20 06/13/20 07:00 07:00 WBC 8.5 RBC 4.81 Hgb 14.3 Hct 42.1 MCV 87.5 MCH 29.7 MCHC 34.0 RDW Std Deviation 39.1 RDW Coeff of Bennie 12.2 Plt Count 370 MPV 10.1 Immature Gran % (Auto) 0.200 Neut % (Auto) 75.8 H Lymph % (Auto) 15.8 L Taliaferro % (Auto) 8.0 Eos % (Auto) 0.0 Baso % (Auto) 0.2 Absolute Neuts (auto) 6.4 Absolute Lymphs (auto) 1.34 Nucleated RBC % 0 Sodium 138 Potassium 3.2 L Chloride 103 Carbon Dioxide 24.0 Anion Gap 11 BUN 19 H Creatinine 0.78 Estim Creat Clear Calc 130.51 Est GFR (MDRD) Af Amer 148 Est GFR (MDRD) Non-Af 122 BUN/Creatinine Ratio 24.4 H Glucose 100 Calcium 9.1 Total Bilirubin 1.00 AST 8 L ALT 14 L Alkaline Phosphatase 71 Total Protein 8.5 H Albumin 4.7 Globulin 3.8 Albumin/Globulin Ratio 1.2 Lipase 302 Radiography Diagnostic Testing: Radiology Impression Abdomen/Pelvis CT 06/13/20 05:43 IMPRESSION: Moderate constipation. No appendicitis. A few stones left kidney no hydronephrosis. Electronically Signed: Mary Lou Kim MD at 6:32 EDT Tel , Service support , Discharge Plan Triage Chief Complaint: Abd Pain ED Provider: Brett Strickland Dx/Rx/DC Orders Instructions: ED Unknown Causes of Abdominal ... Prescriptions: New ondansetron HCl [Zofran] 4 mg tablet 4 mg PO Q8H PRN (Reason: nausea and vomiting) Qty: 14 RF: 0 promethazine 25 mg tablet 25 mg PO Q6H PRN PRN (Reason: Nausea) Qty: 14 RF: 0 No Action buprenorphine-naloxone 1 EACH film 1 ea SL BID RF: 0 gabapentin [Neurontin] 400 mg capsule 400 mg TID RF: 0 Primary Care Provider: Dionne Hernandez Referrals: Dionne Hernandez [Primary Care Provider] - Disposition Patient Disposition: Home, self care
[2020-06-13] MEDS: Ketorolac 15 MG/ML Vial IM (03:28)
[2020-06-13] MEDS: proMETHazine 25 MG/ML Syringe 12.5 MG IM (03:28)
[2020-06-13] MEDS: Ondansetron ODT 4 MG Tablet 8 MG PO (04:59)
[2020-06-13 05:01] VITALS: BP 129/92; PULSE 98; RESP 17; TEMP 37.2; O2SAT 100
[2020-06-13 05:02] VITALS: BP 129/92; PULSE 112; RESP 17; TEMP 37.2; O2SAT 100
--- NOTE | 2020-06-13 05:08 | NUR.TO.PHY ---
talked with patient who is still upset and states he is going to leave but then wants medication for the nausea. Talking with patient and he continues to go back and forth with the blood draw. Talked to him and explained the doctor wants the lab work for diagnosis and he has mentioned leaving so I need to know whether or not he is willing to let the doctor come in for a fem stick. He states he can try but then continues to complain of whether or not he will get the stick and states this is taking to long and he could have felt better sooner if we had just listened to him. He has been requesting a central line or picc placed and explained to him at this point, we do not do that for a blood draw and he says the doctor was not able to locate the neck so how will he get his arm. Explained it is a femoral and he then asks how will get it orally, from me, explained fem stick to patient. Patient is willing to try at this point and was given the PO SL zofran 8mg to see if helps with his nausea.
--- NOTE | 2020-06-13 05:43 | CT_ITS ---
STUDY: CT ABDOMEN AND PELVIS WITHOUT CONTRAST REASON FOR EXAM: Male, 35 years old. Abdominal pain RADIATION DOSAGE (If Supplied By Facility): CTDIvol = ( 6.21 ) mGy, DLP = ( 324.25 ) mGycm TECHNIQUE: Transaxial images were obtained from the dome of the diaphragm to the symphysis pubis without oral contrast, and without intravenous contrast. Sagittal and coronal images were reconstructed. Individualized dose optimization techniques were used for this CT. COMPARISON: None. FINDINGS: The visualized lung bases are unremarkable. The visualized portions of the heart are within normal limits. Normal liver. Normal gallbladder and extrahepatic biliary system. Normal spleen. Normal pancreas. Normal bilateral adrenal glands. Normal right kidney. Punctate stones left kidney without hydronephrosis. Normal visualized stomach. Normal small intestine. There is moderate stool in the colon. The appendix is visualized and appears normal. Normal abdominal aorta. Normal inferior vena cava. Normal retroperitoneum. Normal urinary bladder. Normal visualized prostate gland. Normal abdominal wall. Normal osseous structures. CT/Abdomen/Pelvis without Cont IMPRESSION: Moderate constipation. No appendicitis. A few stones left kidney no hydronephrosis. Electronically Signed: Mary Lou Kim MD at 6:32 EDT Tel , Service support ,
[2020-06-13] MEDS: Morphine 4 MG/ML Syringe IM (05:58)
[2020-06-13] MEDS: Lidocaine 2% (20 ml mdv) 20 ML Vial SC (06:00)
[2020-06-13 07:11] LABS: Absolute Lymphocyte Count 1.34 X10^3/uL (0.83-4.51); Absolute Neutrophil Count 6.4 X10^3/uL (2.0-7.7); Basophil# 0.02 X10^3/uL; Basophil% 0.2 % (0-1); Hematocrit 42.1 % (40-54); Hemoglobin 14.3 g/dL (13.0-16.5); Lymphocyte # 1.34 X10^3/ul (0.83-4.51); Lymphocyte % 15.8 % (19-41); Mean Corpuscular Hgb 29.7 pg (27.0-32.0); Mean Corpuscular Volume 87.5 fL (80-94); Mean Platelet Vol. 10.1 fl (6.2-12.0); Monocyte# 0.68 X10^3/uL; NRBC Flagged by Analyzer 0 % (0-5); Neutrophil # 6.41 X10^3/uL (2.7-7.7); Neutrophil % 75.8 % (47-70); Platelet Count 370 K/mm3 (150-450); RBC Distribution Width CV 12.2 % (11.6-14.6); RBC Distribution Width SD 39.1 fl (35.1-43.9); Red Blood Count 4.81 M/mm3 (4.6-6.2); White Blood Count 8.5 K/mm3 (4.4-11.0)
[2020-06-13 07:24] LABS: ALB/GLOB Ratio 1.2 RATIO (0.9-2.4); AST(SGOT) 8 U/L (15-37); Alanine Aminotransfer ALT/SGPT 14 U/L (16-61); Albumin, Serum 4.7 g/dL (3.2-5.0); Alkaline Phosphatase 71 U/L (45-117); Anion Gap 11 (5-15); BUN 19 mg/dL (7-18); BUN/Creat Ratio 24.4 RATIO (10-20); Calcium,Total 9.1 mg/dL (8.5-10.1); Chloride 103 mmol/L (98-107); Creatinine, Serum 0.78 mg/dL (0.70-1.30); EST Glomerular Filtration Rate 122 mL/min (>60); Est Glom Filt Rate - Afr Amer 148 mL/min (>60); Estimated Creatinine Clearance 130.51 ml/min; Globulin 3.8 g/dL (2.2-4.2); Glucose 100 mg/dL (74-106); Lipase 302 U/L (73-393); Potassium 3.2 mmol/L (3.5-5.1); Protein, Total 8.5 g/dL (6.4-8.2); Sodium Level 138 mmol/L (136-145)
[2020-06-13] MEDS: fentaNYL 100 MCG/2 ML Ampul 25 MCG IM (07:27)
== END 2020-06-13 07:45 | disposition home or self-care (01) ==
PROVIDERS: Emergency Provider Student in an Organized Health Care Education/Training Program; PCP Family Medicine
DX: R10.13 Epigastric pain (principal); R10.33 Periumbilical pain; R11.2 Nausea with vomiting, unspecified; K59.00 Constipation, unspecified; Z87.891 Personal history of nicotine dependence
CPT/HCPCS: 74176; 80053; 83690; 85025; 96372; 99283

== ENCOUNTER 2020-08-08 20:55 | Emergency (ER) | payer MEDICAID, SELFPAY ==
[2020-08-08 20:56] VITALS: BP 102/72; PULSE 117; RESP 18; TEMP 36.4; O2SAT 99; BMI 18.2
--- NOTE | 2020-08-08 23:00 | EX.ED.DYSGE1 ---
HPI History of Present Illness Chief Complaint: General Illness Informant: patient Narrative Narrative: Patient presents with persistent nausea. He states he was seen June 13 nearly 2 months with in the ED. He was given prescription for Phenergan and Zofran. He states Phenergan seemed to help better. He is out of that. States almost daily would have nausea and vomiting having generalized weakness and hair loss since then. He tried following up with the PCP however due to working was unable to go to the appointment. History of hep C diagnosed from a history of IV drug use. He has been clean for the past 6 years. He has not had endoscopies in the past. Denies diarrhea. Mild abdominal discomfort. He states increasing fatigue. Urine is darker. Denies fevers chills or sweats. Prior similar symptoms: Yes PFSH PFSH Medical History Substance abuse Home Medications buprenorphine-naloxone 1 ea SL BID 08/19/19 [History Last Taken Unknown] gabapentin [Neurontin] 400 mg TID 06/13/20 [History Last Taken Unknown] ondansetron HCl [Zofran] 4 mg PO Q8H PRN #14 tab 06/13/20 [Rx Last Taken Unknown] promethazine 25 mg PO Q6H PRN PRN #14 tablet 06/13/20 [Rx Last Taken Unknown] cephalexin 500 mg PO Q12 #14 cap 08/09/20 [Rx Last Taken Unknown] promethazine 25 mg PO Q6H PRN #30 tab 08/09/20 [Rx Last Taken Unknown] Allergy/AdvReac Type Severity Reaction Status Date / Time No Known Allergies Allergy Verified 08/08/20 21:00 Social History Smoking Status: Current some day smoker tobacco type: cigarettes ROS ROS ED Constitutional Constitutional ED: Reports weight loss; Denies chills, fever(s) or sweats Eyes Eyes: Denies change in vision ENT ENT ED: Denies dysphagia or sore throat Cardiovascular Cardiovascular: Denies chest pain, leg edema, palpitations or racing heartbeat Respiratory/Chest Respiratory/Chest: Denies cough, dyspnea or dyspnea on exertion Gastrointestinal Gastrointestinal: Reports nausea and vomiting; Denies abdominal pain or diarrhea Genitourinary Genitourinary ED: Denies dysuria, hematuria or urinary frequency Musculoskeletal Musculoskeletal: Denies back pain, extremity pain or neck pain Integumentary Denies rash or wounds Neurologic Neurologic: Denies headache(s), paresthesias or weakness EXAM Physical Exam Const Vital Signs: 08/08/20 20:56 08/08/20 22:30 08/09/20 00:23 Temperature 97.5 F L Temperature Source Oral Pulse Rate 117 H Respiratory Rate 18 14 Respiratory Effort Normal Blood Pressure 102/72 Blood Pressure Mean 82 Pulse Ox 99 Oxygen Delivery Method Room Air Positive well nourished and well developed General Appearance ED: well developed and NAD HEENT Reports dry mucous membranes normocephalic and atraumatic Mouth ED: Yes dry mucous membranes Mouth: dry mucous membranes Eyes PERRL, EOMs intact bilaterally and conjunctivae normal General Eye ED: Yes normal appearance of both eyes Neck no lymphadenopathy and supple General: Negative for tenderness Chest Wall Chest: Negative for tenderness Resp normal respiratory effort and normal air movement Effort and Inspection: symmetric chest movement; Negative for respiratory distress Cardio regular rhythm and no murmurs Rate: tachycardic Peripheral Pulses: pulses 2+ throughout GI normal to inspection, nondistended, normoactive bowel sounds GI Narrative: Mild tenderness lower abdomen, no guarding or rebound. Palpation: Negative for guarding or rebound tenderness present Back/Spine no CVA tenderness and no thoracic nor lumbar tenderness Extremity normal to inspection General Extremety ED: Negative for edema or tenderness General Extremity: Negative for edema Neuro oriented x3 and no sensory deficits noted Sensorium / Orientation: awake and alert Skin no rashes or lesions noted and no wounds MDM MDM MDM Narrative Medical decision making narrative: Patient tachycardic dry mucosal membranes. Initial discussed ordering for IV fluids however he discussed due to his IV drug history he has very poor veins last time he is here there is multiple sticks. He agreed to least one attempt. This unsuccessful. He requested arterial stick due to this being accessed previously. Respiratory access for blood. Abdominal labs electrolytes all normal. TSH is normal. Given oral Phenergan. Urine did note signs of infection sent for culture. He states changes in urine stream. Will start antibiotics for 7 days. Prescription for Phenergan. He will be given follow-up with surgery for potential endoscopy as an outpatient with his continued nausea and weight loss. Also given PCP for follow-up. All questions were answered. Lab Data Attestation: I reviewed the patient's lab results. Labs: Laboratory Results - last 24 hr 08/08/20 08/08/20 08/08/20 23:25 23:25 23:25 WBC 10.2 RBC 4.78 Hgb 14.2 Hct 41.8 MCV 87.4 MCH 29.7 MCHC 34.0 RDW Std Deviation 39.3 RDW Coeff of Bennie 12.3 Plt Count 412 MPV 9.5 Immature Gran % (Auto) 0.500 Neut % (Auto) 77.0 H Lymph % (Auto) 13.6 L [place] % (Auto) 8.5 Eos % (Auto) 0.1 Baso % (Auto) 0.3 Absolute Neuts (auto) 7.8 H Absolute Lymphs (auto) 1.39 Nucleated RBC % 0 Sodium 137 Potassium 3.6 Chloride 104 Carbon Dioxide 21.0 Anion Gap 12 BUN 12 Creatinine 0.80 Estim Creat Clear Calc 126.39 Est GFR (MDRD) Af Amer 143 Est GFR (MDRD) Non-Af 119 BUN/Creatinine Ratio 15.0 Glucose 117 H Calcium 9.3 Total Bilirubin 0.80 Direct Bilirubin 0.27 AST 19 ALT 13 L Alkaline Phosphatase 80 Total Protein 9.0 H Albumin 4.6 Globulin 4.4 H Lipase 73 TSH 1.42 Urine Color Urine Clarity Urine pH Ur Specific Draper Urine Protein Urine Glucose (UA) Urine Ketones Urine Occult Blood Urine Nitrite Urine Bilirubin Urine Urobilinogen Ur Leukocyte Esterase Urine RBC Urine WBC Ur Squamous Epith Cells Urine Bacteria Urine Mucus 08/08/20 23:25 WBC RBC Hgb Hct MCV MCH MCHC RDW Std Deviation RDW Coeff of Bennie Plt Count MPV Immature Gran % (Auto) Neut % (Auto) Lymph % (Auto) [place] % (Auto) Eos % (Auto) Baso % (Auto) Absolute Neuts (auto) Absolute Lymphs (auto) Nucleated RBC % Sodium Potassium Chloride Carbon Dioxide Anion Gap BUN Creatinine Estim Creat Clear Calc Est GFR (MDRD) Af Amer Est GFR (MDRD) Non-Af BUN/Creatinine Ratio Glucose Calcium Total Bilirubin Direct Bilirubin AST ALT Alkaline Phosphatase Total Protein Albumin Globulin Lipase TSH Urine Color Yellow Urine Clarity Sl. Cloudy Urine pH 6.5 Ur Specific Draper 1.010 Urine Protein Negative Urine Glucose (UA) Normal Urine Ketones Negative Urine Occult Blood 10 H Urine Nitrite Negative Urine Bilirubin Negative Urine Urobilinogen Normal Ur Leukocyte Esterase 500 H Urine RBC 0 SEEN Urine WBC 5-10 SEEN Ur Squamous Epith Cells 0-5 SEEN Urine Bacteria 1+ Urine Mucus 0 SEEN Discharge Plan Triage Chief Complaint: General Illness ED Provider: David Kolb Dx/Rx/DC Orders Clinical Impression: Acute UTI, Nausea & vomiting, Unexplained weight loss Instructions: Nausea Vomit Control, Urinary Tract Infections in Men Prescriptions: New promethazine 25 mg tablet 25 mg PO Q6H PRN (Reason: nausea and vomiting) Qty: 30 RF: 0 cephalexin 500 mg capsule 500 mg PO Q12 Qty: 14 RF: 0 No Action buprenorphine-naloxone 1 EACH film 1 ea SL BID RF: 0 gabapentin [Neurontin] 400 mg capsule 400 mg TID RF: 0 ondansetron HCl [Zofran] 4 mg tablet 4 mg PO Q8H PRN (Reason: nausea and vomiting) Qty: 14 RF: 0 promethazine 25 mg tablet 25 mg PO Q6H PRN PRN (Reason: Nausea) Qty: 14 RF: 0 Primary Care Provider: Care Physician,No Primary Referrals: Yomi Alfaro MD [STAFF PHYSICIAN] - 3-5 Days Brit Kidd DO [STAFF PHYSICIAN] - 1 Week Care Physician,No Primary [Primary Care Provider] - Disposition Disposition: Home, Self Care
[2020-08-08 23:34] LABS: Absolute Lymphocyte Count 1.39 X10^3/uL (0.83-4.51); Absolute Neutrophil Count 7.8 X10^3/uL (2.0-7.7); Basophil# 0.03 X10^3/uL; Basophil% 0.3 % (0-1); Eosinophil# 0.01 X10^3/uL; Eosinophils% 0.1 % (0-5); Hematocrit 41.8 % (40-54); Hemoglobin 14.2 g/dL (13.0-16.5); Lymphocyte # 1.39 X10^3/ul (0.83-4.51); Lymphocyte % 13.6 % (19-41); Mean Corpuscular Hgb 29.7 pg (27.0-32.0); Mean Corpuscular Volume 87.4 fL (80-94); Mean Platelet Vol. 9.5 fl (6.2-12.0); Monocyte# 0.87 X10^3/uL; Monocyte% 8.5 % (0-10); NRBC Flagged by Analyzer 0 % (0-5); Neutrophil # 7.84 X10^3/uL (2.7-7.7); Platelet Count 412 K/mm3 (150-450); RBC Distribution Width CV 12.3 % (11.6-14.6); RBC Distribution Width SD 39.3 fl (35.1-43.9); Red Blood Count 4.78 M/mm3 (4.6-6.2); White Blood Count 10.2 K/mm3 (4.4-11.0)
[2020-08-08 23:35] LABS: Mucous, Urine 0 SEEN /hpf (<or=2+); Red Blood Cells-Urine 0 SEEN /hpf (0-5)
[2020-08-08 23:36] LABS: Color, Urine Yellow (Yellow); Glucose, Dipstick Normal (Normal); Ketone-Dipstick Negative (Negative); Leukocyte Esterase-Dipstick 500 /ul (Negative); Nitrite-Dipstick Negative (Negative); Occult Blood-Urine 10 /ul (Negative); Protein-Dipstick Negative (Negative); Urine Bilirubin Dipstick Negative (Negative); Urine Clarity Sl. Cloudy (Clear); Urine Urobilinogen Normal (Normal); Urine pH 6.5 (5.0 - 8.0)
[2020-08-08 23:46] LABS: Bacteria 1+ /hpf (None Seen); Squamous Epithelial Cells - UA 0-5 SEEN /hpf (0-5); White Blood Cells 5-10 SEEN /hpf (0-5)
[2020-08-08 23:49] LABS: Anion Gap 12 (5-15); BUN 12 mg/dL (7-18); Calcium,Total 9.3 mg/dL (8.5-10.1); Chloride 104 mmol/L (98-107); EST Glomerular Filtration Rate 119 mL/min (>60); Est Glom Filt Rate - Afr Amer 143 mL/min (>60); Estimated Creatinine Clearance 126.39 ml/min; Glucose 117 mg/dL (74-106); Potassium 3.6 mmol/L (3.5-5.1); Sodium Level 137 mmol/L (136-145)
[2020-08-09 00:08] LABS: AST(SGOT) 19 U/L (15-37); Alanine Aminotransfer ALT/SGPT 13 U/L (16-61); Albumin, Serum 4.6 g/dL (3.2-5.0); Alkaline Phosphatase 80 U/L (45-117); Bilirubin, Direct 0.27 mg/dL (0.00-0.30); Globulin 4.4 g/dL (2.2-4.2); Lipase 73 U/L (73-393); Thyroid Stim Hormone (TSH) 1.42 uIU/mL (0.358-3.74)
[2020-08-09 00:23] VITALS: RESP 14
[2020-08-09] MEDS: proMETHazine 25 MG Tablet PO (00:23)
[2020-08-09] MEDS: Cephalexin 250 MG Capsule 500 MG PO (01:00)
== END 2020-08-09 01:01 | disposition home or self-care (01) ==
PROVIDERS: Emergency Provider Emergency Medicine
DX: N39.0 Urinary tract infection, site not specified (principal); R11.2 Nausea with vomiting, unspecified; R63.4 Abnormal weight loss; F17.210 Nicotine dependence, cigarettes, uncomplicated
CPT/HCPCS: 80048; 80076; 81001; 83690; 84443; 85025; 87086; 87088; 99282; A4216

== ENCOUNTER 2020-09-12 05:40 | Day surgery (SDC) | payer MEDICAID, SELFPAY ==
[2020-08-24 14:00] VITALS: BMI 18.2
[2020-09-12 06:14] VITALS: BP 127/76; PULSE 78; RESP 18; TEMP 36.8; O2SAT 99; BMI 20.4
--- NOTE | 2020-09-12 06:45 | SUR.PREOP ---
Discharge booklet went over with patient and family. This nurse was unable to get his IV after 4 sticks, also using the vein finder. This nurse then asks JEANNINE William to attempt to the IV.
--- NOTE | 2020-09-12 07:38 | HP.PCM_ITS ---
History and Physical Date of Admission: 09/12/20 Intake Vital Signs 08/24/20 13:57 08/24/20 14:00 Height 6 ft 4 in Weight: 159 lb BMI 19.3 18.2 BP 143/95 H Blood Pressure Location Rt brachial Position Sitting Respiration 18 Pulse 86 Pulse Source Monitor Temp 97.9 F Temp Source Temporal Pulse Oximetry (%) 100 Oxygen Delivery Method room air Intake Visit Reasons: [facility] [place] ER F/U NAUSEA, VOMITING Chief Complaint: F/U ER visit/abdominal pain/nausea and vomiting Leather Sorter Required: No Is patient in pain?: Yes Allergies No Known Allergies Allergy (Verified 08/24/20 13:58) Medications buprenorphine-naloxone 1 ea SUBLINGUAL BID 08/19/19 [History Confirmed 08/24/20] ondansetron HCl [Zofran] 4 mg PO Q8H PRN #14 tab 06/13/20 [Rx Confirmed 08/24/20] promethazine 25 mg PO Q6H PRN PRN #14 tablet 06/13/20 [Rx Confirmed 08/24/20] promethazine 25 mg PO Q6H PRN #30 tab 08/09/20 [Rx Confirmed 08/24/20] omeprazole 40 mg capsule,delayed release 40 mg PO DAILY #60 cap 08/24/20 [Rx Confirmed 08/24/20] [facility] Medical History (Updated 08/24/20 @ 14:[address] Yomi Alfaro MD) Abdominal pain Acute UTI Altered mental status Nausea & vomiting Opiate overdose Pilon fracture of right tibia Polysubstance (including opioids) dependence, daily use Substance abuse Unexplained weight loss Unresponsiveness Surgical History (Updated 08/24/20 @ 13:55 by Torri Miranda) Status post open reduction and internal fixation (ORIF) of fracture Family History (Updated 08/24/20 @ 13:55 by Torri Miranda) Grandmother Heart disease Social History (Updated 08/24/20 @ 13:57 by Torri Miranda) Smoking Status: Current some day smoker alcohol intake: never substance use type: former substance user Date of last use: opioid HPI HPI HPI: DEVIKA CLEMENTE, is a 35 M who presents to the office today for several issues. The patient reports that he has been having nausea and vomiting and unintentional weight loss with hair loss as well. He reports that he is having abdominal pain. He says the pain is in the upper abdomen. He says that the pain and nausea and vomiting occur daily. He has been losing a lot of weight because he has had no appetite. Patient reports no blood in his stool. No blood in his vomit. ROS General General: Yes weight change, appetite and fatigue; No colon cancer, breast cancer or weakness HEENT HEENT: No difficulty swallowing, eye injury, eye surgery, swollen glands or hoarseness Endo Endocrine: No thyroid disease, diabetes mellitus, thyroid cancer, Hair loss, heat intolerance or cold intolerance Skin Skin: No rash or changing moles Breast Breast: No left breast lump, right breast lump, nipple discharge, breast pain, abnormal mammogram, abnormal US or breast enlargement Musc Musculoskeletal: No back problems, arthritis, rheumatoid arthritis, gout or joint pain Cardio Cardiovascular: No murmur, pacemaker, heart disease, atrial fibrillation, high blood pressure, heart attack, heart stent, palpitations, shortness of breat with exertion or chest pain Psych Psychiatric: Yes depression and anxiety; No hearing voices Resp Respiratory: No shortness of breath, No sleep apnea, No cough, No COPD, No asthma, No emphysema and No wheezing Gastro Gastrointestinal: Yes abdominal pain, Yes nausea or vomiting, No diarrhea, No constipation, No blood in stool, No acid reflux, No hemorrhoids, No ulcers, No gallbladder problem and No black,tarry stools Jose F Hematologic: No blood thinners, No blood disorders, No bleeding, No anemia and No blood clots Neuro Neurologic: No system reviewed and no additional complaints, except as documented, No as per HPI, No abnormal gait, No abnormal hearing, No abnormal movements, No abnormal speech, No behavioral changes, No burning sensations, No confusion, No convulsions, No disequilibrium, No dizziness, No localized weakness, No frequent falls, No headache(s), No lack of coordination, No loss of vision, No memory loss, No numbness, No other visual disturbances, No radicular pain, No restless legs, No sensory deficit, No syncope, No tingling, No tremor(s), No weakness and No other Exam Const General: cooperative Orientation: alert and oriented x3 HENMT Head: normal to inspection Neck Neck: normal visual inspection and full ROM Chest Chest palpation & inspection: normal inspection of the chest Resp Effort & Inspection: normal respiratory effort Auscultation: clear to auscultation bilaterally Cardio Rate: regular rate Rhythm: regular rhythm GI Inspection: non-distended Palpation: soft and nontender Skin General: no rashes or lesions noted Neuro General: patient alert and patient oriented x3 Extrem General: full ROM Psych Appearance: grossly normal Mental Status: mental status grossly normal Assessment and Plan Assessment and Plan (1) Substance abuse: Status: Acute Comment: suboxone use now via Dr Salomon Granger - last illegal oxy use was 3-4 years ago (2) Abdominal pain: Status: Acute Qualifiers: Abdominal location: unspecified location Qualified Code(s): R10.9 - Unspecified abdominal pain (3) Nausea & vomiting: Status: Acute Qualifiers: Vomiting type: unspecified Vomiting Intractability: unspecified Qualified Code(s): R11.2 - Nausea with vomiting, unspecified (4) Weight loss: Status: Acute Orders: Orders: EGD Today R10.9, R11.2 Referrals: Internal Medicine R10.9, R11.2, R63.4 Plan - Dr. Yomi Alfaro MD: The patient has been having nausea and vomiting as well as weight loss and hair loss. I am unsure as to the etiology. The patient is also on Suboxone for dependence. I will perform an EGD for the patient but I recommend that he establish care with a PCP for work-up of hair loss and weight loss. I explained endoscopy in detail to the patient. I explained the risks including but not limited to stroke or heart attack with anesthesia, perforation of the GI tract, bleeding, infection. I explained that any of these could necessitate further emergency surgery. The patient understands and all questions were answered sufficiently. The patient wishes to proceed with procedure. Yomi Alfaro MD Pager: [facility] [place] [facility] [address] [place] [address], [address] [place] [address] Office: I have re-examined the patient. There are no clinical changes since date of exam.
--- NOTE | 2020-09-12 10:04 | PCM.PN.BLA ---
Progress Note Patient was unable to have EGD this morning as IV access was unable to be obtained. I believe there is a small chance that there is any pathology in his stomach. I believe the patient needs a PCP. I referred the patient to PCP who has not been able to schedule an appointment with the patient. I gave the physician's number to the patient and asked him to call the physician's office. I believe the patient may have something thyroid or endocrine related as he is also losing hair and having early satiety. Unfortunately due to his IV drug history I was unable to obtain IV to perform an EGD today. Yomi Alfaro MD Pager: [facility] [address] [place] [address], [address] [place] [address] Office:
--- NOTE | 2020-09-12 15:13 | SUR.PHASEII ---
0879 Endo charge nurse out to AC staff and notified them that procedure was not completed b/c the IV infiltrated and another one was not able to get started. she stated that pt became very upset after dr coleman said that he felt that the procedure couldn't be done. pt was being taken back to AC 10- he was very upset and agitated and trying to climb out of the cot once back in AC 10. nurses tried to explain that he had gotten some medication and needed to come to AC before leaving but he wanted to leave right away. this nurse went to check on pt in AC 10 and endo nurse in room with him and pt trying to get up and get his clothes on. he was yelling that he wanted to leave this nurse went to obtain a wheelchair b/c of the versed that was given to wheel him to main entrance and when returned to AC department pt was already walking out of the unit with his family. this nurse followed pt to make sure he safely left hospital dr coleman told pt in procedure room that he was to follow up with a pcp and call his office. no other post procedure instructions given d/t to pt's agitation
== END 2020-09-12 08:30 | disposition home or self-care (01) ==
LOC: EN 05:41 → AC 05:41
PROVIDERS: Referring Provider Surgery; Visit Provider Surgery
PROC: 0DJ08ZZ Inspection of Upper Intestinal Tract, Via Natural or Artificial Opening Endoscopic (ICD-10-PCS; CPT 43235; principal; 2020-09-12 07:25)
DX: R11.2 Nausea with vomiting, unspecified (principal); R10.10 Upper abdominal pain, unspecified; R63.4 Abnormal weight loss; K21.9 Gastro-esophageal reflux disease without esophagitis; F17.200 Nicotine dependence, unspecified, uncomplicated; Z68.20 Body mass index [BMI] 20.0-20.9, adult; Z53.8 Procedure and treatment not carried out for other reasons; Z79.899 Other long term (current) drug therapy; Z20.822 Contact with and (suspected) exposure to COVID-19
CPT/HCPCS: 87426; C9803; J7120; J2405

== ENCOUNTER 2020-11-05 11:20 | Emergency (ER) | payer MEDICAID, SELFPAY ==
[2020-11-05 11:20] VITALS: BP 117/89; PULSE 77; RESP 20; TEMP 36.4; O2SAT 99; BMI 20.3
[2020-11-05] MEDS: proMETHazine 25 MG/ML Syringe IV (12:42)
[2020-11-05] MEDS: Ondansetron ODT 4 MG Tablet PO (12:42)
[2020-11-05] MEDS: Haloperidol Lactate 5 MG/ML Vial IM (14:12)
--- NOTE | 2020-11-05 14:50 | EDS_ITS ---
HPI History of Present Illness Chief Complaint: Abd Pain Narrative Narrative: Patient is a 35-year-old male who presents with bouts of nausea and vomiting as well as generalized abdominal pain. He states he has been seen in the ER multiple times and that no one can figure out why he has the symptoms. He denies any true diagnosis cyclic vomiting syndrome and also states he has not smoked marijuana often. He states that he woke up this morning and noticed generalized abdominal discomfort with bouts of vomiting which he cannot control at home and therefore comes in for evaluation. [facility] Medical History Abdominal pain Acute UTI Altered mental status Anxiety Depression Former smoker Gastric reflux Hepatitis Injury of head and neck Migraine headache Nausea & vomiting Opiate overdose Pilon fracture of right tibia Polysubstance (including opioids) dependence, daily use Restless legs Substance abuse Unexplained weight loss Unresponsiveness Wears contact lenses Home Medications buprenorphine-naloxone 1 ea SUBLINGUAL BID 08/19/19 [History Last Taken Unknown] ondansetron HCl [Zofran] 4 mg PO Q8H PRN #14 tab 06/13/20 [Rx Last Taken Unknown] promethazine 25 mg PO Q6H PRN PRN #14 tablet 06/13/20 [Rx Last Taken Unknown] omeprazole 40 mg capsule,delayed release 40 mg PO DAILY #60 cap 08/24/20 [Rx Last Taken Unknown] promethazine 25 mg RI Q6H PRN #12 ea 11/05/20 [Rx Last Taken Unknown] Allergy/AdvReac Type Severity Reaction Status Date / Time No Known Allergies Allergy Verified 09/12/20 06:13 Family History (Updated 08/24/20 @ 13:55 by Torri Miranda) Grandmother Heart disease Surgical History (Updated 08/24/20 @ 13:55 by Torri Miranda) Status post open reduction and internal fixation (ORIF) of fracture Social History (Updated 08/24/20 @ 13:57 by Torri Miranda) Smoking Status: Former smoker alcohol intake: never substance use type: former substance user Date of last use: opioid ROS ROS ED Constitutional Constitutional ED: Denies chills or fever(s) ENT ENT ED: Reports sore throat Cardiovascular Cardiovascular: Denies chest pain Respiratory/Chest Respiratory/Chest: Denies cough or dyspnea Gastrointestinal Gastrointestinal: Reports abdominal pain, nausea and vomiting; Denies diarrhea Genitourinary Genitourinary ED: Denies dysuria Musculoskeletal Musculoskeletal: Denies myalgias Integumentary Denies rash Neurologic Neurologic: Denies headache(s) Hematologic/Lymphatic Hematologic/Lymphatic: Denies easy bleeding or easy bruising EXAM Physical Exam Const Vital Signs: 11/05/20 11:20 Temperature 97.5 F L Temperature Source Temporal Pulse Rate 77 Respiratory Rate 20 H Blood Pressure 117/89 H Blood Pressure Mean 98 Pulse Ox 99 Oxygen Delivery Method Room Air Positive well nourished and well developed General Appearance ED: well developed HEENT Reports moist mucous membranes Eyes PERRL and EOMs intact bilaterally Neck supple Neck Narrative: No crepitance no pain with palpation of the thyroid cartilage Resp normal respiratory effort and clear to auscultation bilaterally Cardio regular rate and regular rhythm GI normal to inspection, nondistended, normoactive bowel sounds, non-tender and non-distended GI Narrative: Bowel sounds hyperactive but no voluntary guarding or rigidity Palpation: soft Extremity normal to inspection Neuro oriented x3 and CN's II-XII intact bilaterally Sensorium / Orientation: alert Psych mental status grossly normal Skin no rashes or lesions noted MDM MDM MDM Narrative Medical decision making narrative: Patient presented to the ER with a soft nonsurgical abdomen and in no acute distress. We discussed placing an IV and providing basic laboratory studies as well as IV hydration. Patient states he is a hard stick and after 2 attempts did not want any further IV attempts or laboratory studies drawn. Patient was given IM Phenergan oral Zofran and IM Haldol. Following this he had resolution of his vomiting and reported feeling better. Therefore at this time as this is a chronic issue for the patient his abdominal exam is nonsurgical vital stable and his symptoms resolve he is safe for discharge Discharge Plan Triage Chief Complaint: Abd Pain ED Provider: Balta Smith Dx/Rx/DC Orders Clinical Impression: Nausea & vomiting Instructions: ED Cyclic Vomiting Syndrome, ED Vomiting (Adult) Prescriptions: New promethazine 25 mg suppository 25 mg RI Q6H PRN (Reason: nausea and vomiting) Qty: 12 RF: 2 No Action omeprazole 40 mg capsule,delayed release(DR/EC) 40 mg PO DAILY Qty: 60 RF: 0 buprenorphine-naloxone 1 EACH film 1 ea sublingual BID RF: 0 ondansetron HCl [Zofran] 4 mg tablet 4 mg PO Q8H PRN (Reason: nausea and vomiting) Qty: 14 RF: 0 promethazine 25 mg tablet 25 mg PO Q6H PRN PRN (Reason: Nausea) Qty: 14 RF: 0 Primary Care Provider: Care Physician,No Primary Referrals: Kemar Collier MD [STAFF PHYSICIAN] - Care Physician,No Primary [Primary Care Provider] - Disposition Disposition: Home, Self Care
[2020-11-05 15:16] VITALS: BP 118/80
== END 2020-11-05 15:19 | disposition home or self-care (01) ==
PROVIDERS: Emergency Provider Emergency Medicine
DX: R11.2 Nausea with vomiting, unspecified (principal); R10.84 Generalized abdominal pain; K21.9 Gastro-esophageal reflux disease without esophagitis; F32.9 Major depressive disorder, single episode, unspecified; F41.9 Anxiety disorder, unspecified; Z79.899 Other long term (current) drug therapy; Z87.891 Personal history of nicotine dependence
CPT/HCPCS: 96374; 96375; 99282; A4216

== ENCOUNTER 2022-12-11 16:42 | Emergency (ER) | payer MEDICAID, SELFPAY ==
[2022-12-11 16:43] VITALS: BP 123/71; PULSE 68; RESP 18; TEMP 35.9; O2SAT 100
[2022-12-11 16:44] VITALS: BMI 20.7
--- NOTE | 2022-12-11 17:12 | CT_ITS ---
STUDY: CT ABDOMEN AND PELVIS WITH CONTRAST REASON FOR EXAM: Male, 37 years old. abd pain RADIATION DOSAGE (If Supplied By Facility): CTDIvol = ( 15.47 ) mGy, DLP = ( 432.47 ) mGycm TECHNIQUE: Transaxial images were obtained from the dome of the diaphragm to the symphysis pubis without oral contrast. IV 100mL Isovue-300 was administered. Sagittal and coronal images were reconstructed. Individualized dose optimization techniques were used for this CT. COMPARISON: None. FINDINGS: The visualized lung bases are unremarkable. The visualized portions of the heart are within normal limits. Normal liver. Normal gallbladder and extrahepatic biliary system. Normal spleen. Normal pancreas. Normal bilateral adrenal glands. Normal right kidney. Normal left kidney. Normal visualized stomach. Normal small intestine. Normal colon. The appendix is visualized and appears to contain a punctate appendicolith. Normal abdominal aorta. Normal inferior vena cava. Normal retroperitoneum. Normal urinary bladder. Mild pelvic fluid. Normal abdominal wall. Normal osseous structures. CT/Abdomen/Pelvis W IV Cont ONLY IMPRESSION: Mild pelvic free fluid. Electronically Signed: Sim Andujar DO at 18:56 EDT Reading Location ID and State: [facility] / [place] Tel [phone], Service support ,
[2022-12-11 17:16] LABS: Absolute Lymphocyte Count 1.17 X10^3/uL (0.83-4.51); Absolute Neutrophil Count 5.7 X10^3/uL (2.0-7.7); Basophil# 0.02 X10^3/uL; Basophil% 0.3 % (0-1); Hematocrit 40.8 % (40-54); Hemoglobin 14.1 g/dL (13.0-16.5); Lymphocyte # 1.17 X10^3/ul (0.83-4.51); Lymphocyte % 15.8 % (19-41); Mean Corp Hgb Conc 34.6 g/dL (32-36); Mean Corpuscular Hgb 29.4 pg (27.0-32.0); Mean Corpuscular Volume 85.2 fL (80-94); Mean Platelet Vol. 9.8 fl (6.2-12.0); Monocyte# 0.53 X10^3/uL; Monocyte% 7.1 % (0-10); NRBC Flagged by Analyzer 0 % (0-5); Neutrophil # 5.68 X10^3/uL (2.7-7.7); Neutrophil % 76.5 % (47-70); Platelet Count 192 K/mm3 (150-450); RBC Distribution Width CV 12.1 % (11.6-14.6); RBC Distribution Width SD 37.8 fl (35.1-43.9); Red Blood Count 4.79 M/mm3 (4.6-6.2); White Blood Count 7.4 K/mm3 (4.4-11.0)
[2022-12-11] MEDS: LORazepam 2 MG/ML Syringe 0.5 MG IV (17:17)
[2022-12-11] MEDS: 0.9% Normal Saline (1000mL) 1,000 ML 1000 ML IV (17:18)
[2022-12-11] MEDS: Ondansetron 4 MG/2 ML Vial IV (17:18)
--- NOTE | 2022-12-11 17:24 | ED.RN ---
THIS RN WAS TRIAGING ANOTHER PT WHEN PT ARRIVES TO ED. HE WAS IN THE HALLWAY NEAR WAITING ROOM AND PT FELL DUE TO SHARP ABD PAIN. THIS WAS NOT OBSERVED BY THIS RN BUT WAS HEARD. I ASSISTED PT INTO WHEELCHAIR. PT DENIES HITTING HEAD OR ANY INJURIES. QUANTROS FILLED OUT.
[2022-12-11 17:43] LABS: AST(SGOT) 8 U/L (15-37); Alanine Aminotransfer ALT/SGPT 15 U/L (16-61); Albumin, Serum 4.3 g/dL (3.2-5.0); Alkaline Phosphatase 60 U/L (45-117); Anion Gap 11 (5-15); BUN 12 mg/dL (7-18); Bilirubin, Direct 0.23 mg/dL (0.00-0.30); Calcium,Total 9.2 mg/dL (8.5-10.1); Chloride 107 mmol/L (98-107); Creatinine, Serum 0.92 mg/dL (0.70-1.30); EST Glomerular Filtration Rate 99 mL/min (>60); Est Glom Filt Rate - Afr Amer 120 mL/min (>60); Globulin 3.8 g/dL (2.2-4.2); Glucose 118 mg/dL (74-106); Lipase 22 U/L (13-75); Potassium 3.5 mmol/L (3.5-5.1); Protein, Total 8.1 g/dL (6.4-8.2); Sodium Level 140 mmol/L (136-145)
[2022-12-11] MEDS: Famotidine 200 MG/20 ML MDV 20 MG in 0.9% Normal Saline (Pres. free 8 ML 300 MG IV (17:44)
[2022-12-11] MEDS: DiphenhydrAMINE 50 MG, ChlorproMAZINE IM 25 MG in 0.9% Normal Saline (100mL Bag) 100 ML 204 MG IV (17:48)
--- NOTE | 2022-12-11 18:03 | EDS_ITS ---
HPI HPI - GI History of Present Illness Chief Complaint: Nausea/Vomiting Informant: patient Narrative Narrative: Patient is a 37-year-old male with remote history of substance abuse previously has been on Suboxone up until the last 2 weeks because he cannot keep it down and also lost his primary care doctor as well as recurrent episodes of abdominal pain, nausea and vomiting and hepatitis C. He is presenting with worsening abdominal pain, nausea and vomiting. He notes his symptoms been going on for the past 2 weeks and been particularly severe for the past week. States it is mostly in the right side over his liver. He also notes that the past few days he has had some diffuse testicular discomfort that is rating down from his abdomen. He notes has not been able to keep anything down recently and is just dry heaving. Has not had a bowel movement the past few days but attributes that to not keeping anything down. Denies any urinary symptoms. Does feel generally weak. Denies any illicit drug use except for intermittent marijuana. Denies any alcohol use. Denies any tobacco use and states the smell of any smoke is really bothering him now. Patient states he has had multiple episodes of this over the past year and has been referred to Dr. Alfaro for endoscopy. He states it was scheduled however on the day of the procedure that could get IV access and the endoscopy was not performed. Chart review shows that he saw surgery in 2020 for this complaint. It looks like patient refused further attempts of IV access during endoscopy by anesthesia so it was not performed. [facility] Medical History Abdominal pain Acute UTI Altered mental status Anxiety Depression Former smoker Gastric reflux Hepatitis Injury of head and neck Migraine headache Nausea & vomiting Opiate overdose Pilon fracture of right tibia Polysubstance (including opioids) dependence, daily use Restless legs Substance abuse Unexplained weight loss Unresponsiveness Wears contact lenses Home Medications buprenorphine 8 mg-naloxone 2 mg sublingual film 1 ea sublingual BID 08/19/19 [History Last Taken Unknown] dicyclomine 20 mg tablet 20 mg PO TID PRN abdominal pain #20 tabs 12/11/22 [Rx Last Taken Unknown] omeprazole 20 mg capsule,delayed release 20 mg PO DAILY 30 days #30 caps 12/11/22 [Rx Last Taken Unknown] promethazine 25 mg rectal suppository 25 mg GA Q6H PRN nausea and vomiting #12 ea 10/26/23 [Rx Last Taken Unknown] promethazine 25 mg tablet 25 mg PO Q6H PRN nausea and vomiting #20 tabs 12/11/22 [Rx Last Taken Unknown] Allergy/AdvReac Type Severity Reaction Status Date / Time No Known Allergies Allergy Verified 12/11/22 16:44 Family History Grandmother Heart disease Surgical History Status post open reduction and internal fixation (ORIF) of fracture Social History Smoking Status: Current every day smoker tobacco type: cigarettes alcohol intake: never substance use type: former substance user Date of last use: opioid ROS ROS ED Constitutional Constitutional ED: Reports sweats; Denies chills or fever(s) ENT ENT ED: Denies sore throat Cardiovascular Cardiovascular: Denies chest pain Respiratory/Chest Respiratory/Chest: Denies cough Gastrointestinal Gastrointestinal: Reports abdominal pain, nausea and vomiting; Denies constipation or melena Genitourinary Genitourinary ED: Denies dysuria Musculoskeletal Musculoskeletal: Denies arthralgias or myalgias Integumentary Denies rash Neurologic Neurologic: Reports weakness; Denies headache(s) Psychiatric Psychiatric: Reports anxiety Hematologic/Lymphatic Hematologic/Lymphatic: Denies easy bleeding EXAM Physical Exam Const Vital Signs: 12/11/22 16:43 12/11/22 20:16 12/11/22 18:42 Temperature 96.6 F L Temperature Source Temporal Pulse Rate 68 79 74 Respiratory Rate 18 16 16 Blood Pressure 123/71 H 125/70 H Blood Pressure Mean 88 88 Pulse Ox 100 98 98 Oxygen Delivery Method Room Air Room Air 12/11/22 20:00 12/11/22 22:00 12/11/22 23:13 Temperature Temperature Source Pulse Rate 78 70 70 Respiratory Rate 16 16 16 Blood Pressure 120/73 126/78 H Blood Pressure Mean 88 94 Pulse Ox 98 98 98 Oxygen Delivery Method Room Air Room Air Positive well nourished and well developed General Appearance ED: well developed and NAD; Negative for pallor HEENT Reports dry mucous membranes normocephalic Mouth ED: Yes dry mucous membranes Mouth: dry mucous membranes Eyes PERRL and EOMs intact bilaterally General Eye ED: Negative for scleral icterus Neck supple Resp normal respiratory effort and clear to auscultation bilaterally Cardio regular rate, regular rhythm and no murmurs GI GI Narrative: Diffuse abdominal pain, more pronounced in the right upper quadrant, positive voluntary guarding Inspection: Negative for abdominal distention Auscultation: normoactive bowel sounds Palpation: soft and tender RUQ Extremity full ROM Neuro moves all extremities Sensorium / Orientation: alert, oriented to person, oriented to place and oriented to time Psych mental status grossly normal Mood & Affect: anxious Skin no wounds General Skin Exam: Negative for jaundice or pallor MDM MDM MDM Narrative Medical decision making narrative: Patient is evaluated for recurrent episodes of abdominal pain, nausea and vomiting. He states he had a couple episodes this year and looks like we last saw him 2 years ago for the same complaint. Prior outpatient records reviewed showing that he was seen by surgery however he never actually had an EGD performed. He states that his surgeon walked out when they had a hard time getting IV access. I question if that is actually what happens is anesthesia records state patient refused further IV attempts. Patient's vital signs are normal. He does have significant tenderness on his exam but is pretty diffuse. He states the pain is more on his right side. He is given IV fluids as well as cocktail for cyclic vomiting syndrome as I do question if this could be the cause of his symptoms given that he does use marijuana however he states is not heavy use. He did recently stop using Suboxone about 2 weeks ago but I do not think this is acute opioid withdrawal given that timeframe. Patient states he is not having muscle cramps and does not feel like opioid withdrawal. Denies any other drug use. Because of history of opioid dependency I do not feel comfortable giving him any opioids and the ER for his pain especially given the longevity of his symptoms. Differential does include cyclic vomiting syndrome, porphyria, GERD, H. pylori, appendicitis and other acute abdominal infection. CBC, CMP, lipase and urinalysis are all normal. His lactate is normal. CT of the abdomen and pelvis shows mild pelvic free fluid and a punctate appendicolith but no findings consistent with acute appendicitis. Given how uncomfortable he is upon arrival I did obtain a surgical consult as he does also have appendicolith. He is evaluated by general surgery, Dr. Nieto, however he does not feel that there is any acute surgical abnormality and does not think the patient requires admission from a surgical standpoint. On repeat evaluation he still complained of nausea and is then given IV Reglan and Toradol. He states he is feeling better and willing to try p.o. challenge. Patient is able to drink water in the ER and then eat crackers. I did discuss the case with GI on-call given the ongoing history of this abdominal pain. I spoke with Dr. Rutherford, who is agreeable with outpatient follow-up. Patient is given the office information to schedule an appointment. In addition patient be started on PPI (omeprazole) and given a prescription for Bentyl as well as Phenergan for symptom control. As he is able to take p.o., does not have any laboratory findings or objective findings consistent with acute protein malnutrition I do not think he requires admission at this time. Patient is agreeable. He is given return precautions. Discharged home in stable and improved condition. Lab Data Attestation: I reviewed the patient's lab results. Labs: Laboratory Results - last 24 hr 12/11/22 17:11 WBC 7.4 RBC 4.79 Hgb 14.1 Hct 40.8 MCV 85.2 MCH 29.4 MCHC 34.6 RDW Std Deviation 37.8 RDW Coeff of Bennie 12.1 Plt Count 192 MPV 9.8 Immature Gran % (Auto) 0.300 Neut % (Auto) 76.5 H Lymph % (Auto) 15.8 L [place] % (Auto) 7.1 Eos % (Auto) 0.0 Baso % (Auto) 0.3 Absolute Neuts (auto) 5.7 Absolute Lymphs (auto) 1.17 Nucleated RBC % 0 Sodium 140 Potassium 3.5 Chloride 107 Carbon Dioxide 22.0 Anion Gap 11 BUN 12 Creatinine 0.92 Est GFR (MDRD) Af Amer 120 Est GFR (MDRD) Non-Af 99 BUN/Creatinine Ratio 13.0 Glucose 118 H Lactic Acid 1.1 Calcium 9.2 Total Bilirubin 0.80 Direct Bilirubin 0.23 AST 8 L ALT 15 L Alkaline Phosphatase 60 Total Protein 8.1 Albumin 4.3 Globulin 3.8 Lipase 22 Radiography Diagnostic Testing: Clinical Impression(s) from Imaging Studies Abdomen/Pelvis CT 12/11/22 17:12 IMPRESSION: Mild pelvic free fluid. Electronically Signed: Sim Andujar DO at 18:56 EDT Reading Location ID and State: [facility] / [place] Tel [phone], Service support , Management Discussion w/another healthcare provider: Accounts Adjustable Clerk Discharge Plan Triage Chief Complaint: Nausea/Vomiting ED Provider: Britta Aponte Dx/Rx/DC Orders Clinical Impression: Nausea & vomiting, Abdominal pain Instructions: ED Pain, Acute, Uncertain Cause, ED Vomiting (Adult) Prescriptions: New omeprazole 20 mg capsule,delayed release(DR/EC) 20 mg PO DAILY 30 Days Qty: 30 0RF promethazine 25 mg tablet 25 mg PO Q6H PRN (Reason: nausea and vomiting) Qty: 20 0RF promethazine 25 mg suppository 25 mg GA Q6H PRN (Reason: nausea and vomiting) Qty: 12 0RF dicyclomine 20 mg tablet 20 mg PO TID PRN (Reason: abdominal pain) Qty: 20 0RF Discontinued omeprazole 40 mg capsule,delayed release(DR/EC) 40 mg PO DAILY Qty: 60 0RF ondansetron HCl [Zofran] 4 mg tablet 4 mg PO Q8H PRN (Reason: nausea and vomiting) Qty: 14 0RF promethazine 25 mg tablet 25 mg PO Q6H PRN PRN (Reason: Nausea) Qty: 14 0RF promethazine 25 mg suppository 25 mg GA Q6H PRN (Reason: nausea and vomiting) Qty: 12 2RF No Action buprenorphine-naloxone 1 EACH film 1 ea sublingual BID Primary Care Provider: Care Physician,No Primary Referrals: Elizabeth Bell MD [Med Staff - Pile Trimmer] - As soon as possible Dayo Rutherford DO [Med Staff - Active Staff] - As soon as possible Care Physician,No Primary [Primary Care Provider] - Disposition Disposition: Home, Self Care Discharge Date/Time: 12/11/22 23:14
[2022-12-11 18:04] LABS: Lactic Acid 1.1 mmol/L (0.4-1.9)
[2022-12-11] MEDS: Metoclopramide 10 MG/2 ML Vial 5 MG IV (18:35)
[2022-12-11 18:42] VITALS: PULSE 74; RESP 16; O2SAT 98
[2022-12-11 20:00] VITALS: PULSE 78; RESP 16; O2SAT 98
[2022-12-11] MEDS: Ketorolac 15 MG/ML Vial IV (20:12)
[2022-12-11 20:16] VITALS: BP 125/70; PULSE 79; RESP 16; O2SAT 98
--- NOTE | 2022-12-11 20:44 | CON.PCM.SX_ITS ---
Assessment & Plan Assessment/Plan (1) Abdominal pain: QUALIFIERS: Abdominal location: unspecified location Qualified Code(s): R10.9 - Unspecified abdominal pain PLAN: Patient with right-sided abdominal discomfort which he admits has been chronic over the past 2 years. He is rather vague in the distribution of the pain and does not claim any migratory component to it. He does not have any clear association with time of day for when the pain is worse. On exam patient's pain is present just to the right of the umbilicus, but there is improved discomfort over McBurney's point and he is negative for all other appendix?specific signs. I would expect him to have a positive psoas sign given the location of his appendix on CT. Further, my independent review of patient's CT imaging he has no secondary signs of inflammation and his appendix is of normal diameter. With nearly 2 weeks of discomfort this is already outside of the normal paradigm for appendicitis and he should certainly have had time to develop these signs if this was the etiology for his discomfort. Therefore, I find it exceedingly unlikely that he would have appendicitis. To further corroborate this clinical impression his Lobo score is 4?also suggesting unlikeliness of appendicitis. I did discuss with Mr. Wang and his grandmother what an appendicolith repres ents and that there may be a slightly increased risk for appendicitis in the future, however, after history studies show us that this is certainly not 1-1 and there is no hard indication to recommend surgery at this time. I have given him symptoms to be alert to should he experience them and instructed him to present for evaluation. At this time, however, I do not find cause for surgical intervention in patient's case. (2) Nausea & vomiting: QUALIFIERS: Vomiting type: unspecified Vomiting Intractability: unspecified Qualified Code(s): R11.2 - Nausea with vomiting, unspecified PLAN: Patient complains of cyclic nausea and vomiting. Adamant that this does not represent cannabinoid hyperemesis syndrome. Patient has keen insight into this diagnosis, but does admit to regular use of marijuana. I have cautioned him that he should truly consider cutting this habit out as he is trying for a work-up of this issue. It is also striking how little work-up he has had to?date despite 2 years of symptoms. He has had no endoscopic evaluation which she states is secondary to his procedure being canceled and never rescheduled on the account of being unable to obtain intravenous access 2 years ago. It would seem that this would be a good next step in his work-up. (3) Weight loss: PLAN: Patient reporting near 30 pound weight loss, however, his weight obtained today appears to be within 5 to 10 pounds of his average weight in our system. Is also noted that his albumin is normal. Admittedly, this is an imperfect marker for patient's nutrition, but with the patient's reports of chronic inability to tolerate food I would expect this to be more altered than it appears today. HPI Consult Data Date of Consult: 12/11/22 HPI Narrative Reason for Consultation: Rule out appendicitis HPI Narrative: DEVIKA WANG, is a 37 M who presents to [facility] with his grandmother for complaints of progressive abdominal pain and associated nausea a nd vomiting. He states that he has had episodic abdominal pain with nausea and vomiting on a near monthly basis for the last 2 years. However, over the last 2 weeks he has had the symptoms and this represents his longest episode to date. He denies any sick contacts. He does confirm some associated chills in addition to the other symptoms. According to him, the only food that he is able to take in is oatmeal and he has had troubles keeping this down. As a result he declares that he is lost approximately 30 pounds over the past 2 years stating that he has gone from a weight of 160 pounds to 130 pounds (yet his weight officially here is 153 pounds). During the course of the symptoms, Mr. Wang reports that his primary care provider loss of his medical license and he has not established following with another provider. He also reports that he had a referral to Dr. Alfaro for endoscopy evaluation but when he presented the day of the procedure staff were unable to obtain intravenous access and the procedure was canceled. Given patient's presentation CBC and CT imaging of the abdomen pelvis were performed by emergency medicine. CBC is without evidence of leukocytosis and absolute neutrophil count is also within normal limits. CT imaging of the abdomen pelvis demonstrates an appendix with an appendicolith at its base. There are no secondary signs of appendicitis and the appendiceal width is 3 mm. Patient has a remote history of narcotic abuse and was previously on Suboxone but has been unable to keep this medication down. He also admits to occasional and intermittent use of marijuana which she clarifies is approximately every other day but he has not had any marijuana for 2 weeks. When asked directly about cannabinoid hyperemesis syndrome he states that he has research the heck out of it and is convinced that this is not it as he previously came off of marijuana for a period of 4 months yet still had the above symptoms. [facility] Medical History Abdominal pain Acute UTI Altered mental status Anxiety Depression Former smoker Gastric reflux Hepatitis Injury of head and neck Migraine headache Nausea & vomiting Opiate overdose Pilon fracture of right tibia Polysubstance (including opioids) dependence, daily use Restless legs Substance abuse Unexplained weight loss Unresponsiveness Wears contact lenses Home Medications buprenorphine 8 mg-naloxone 2 mg sublingual film 1 ea sublingual BID 08/19/19 [History Last Taken Unknown] ondansetron HCl 4 mg tablet (Zofran) 4 mg PO Q8H PRN nausea and vomiting #14 tabs 06/13/20 [Rx Last Taken Unknown] promethazine 25 mg tablet 25 mg PO Q6H PRN PRN Nausea #14 TABLETS 06/13/20 [Rx Last Taken Unknown] omeprazole 40 mg capsule,delayed release 40 mg PO DAILY #60 caps 08/24/20 [Rx Last Taken Unknown] promethazine 25 mg rectal suppository 25 mg [place] Q6H PRN nausea and vomiting #12 ea 11/05/20 [Rx Last Taken Unknown] Allergy/AdvReac Type Severity Reaction Status Date / Time No Known Allergies Allergy Verified 12/11/22 16:44 Family History Grandmother Heart disease Surgical History Status post open reduction and internal fixation (ORIF) of fracture Social History Smoking Status: Current every day smoker tobacco type: cigarettes alcohol intake: never substance use type: former substance user Date of last use: opioid Physical Exam Const alert Constitutional Narrative: Thin, anxious Resp normal respiratory effort GI GI Narrative: No scars, nondistended, soft, patient with some voluntary guarding. Tenderness to palpation of the right mid abdomen. Less tender over McBurney's point. Negative Rovsing, obturator, and psoas signs. Negative Luna sign. Lab / Micro Data 12/11/22 17:11 12/11/22 17:11 Labs: Laboratory Results - last 24 hr 12/11/22 17:11: WBC 7.4, RBC 4.79, Hgb 14.1, Hct 40.8, MCV 85.2, MCH 29.4, MCHC 34.6, RDW Std Deviation 37.8, RDW Coeff of Bennie 12.1, Plt Count 192, MPV 9.8, Immature Gran % (Auto) 0.300, Neut % (Auto) 76.5 H, Lymph % (Auto) 15.8 L, [place] % (Auto) 7.1, Eos % (Auto) 0.0, Baso % (Auto) 0.3, Absolute Neuts (auto) 5.7, Absolute Lymphs (auto) 1.17, Nucleated RBC % 0, Sodium 140, Potassium 3.5, Chloride 107, Carbon Dioxide 22.0, Anion Gap 11, BUN 12, Creatinine 0.92, Est GFR (MDRD) Af Amer 120, Est GFR (MDRD) Non-Af 99, BUN/Creatinine Ratio 13.0, Glucose 118 H, Lactic Acid 1.1, Calcium 9.2, Total Bilirubin 0.80, Direct Bilirubin 0.23, AST 8 L, ALT 15 L, Alkaline Phosphatase 60, Total Protein 8.1, Albumin 4.3, Globulin 3.8, Lipase 22 Radiology Impression Abdomen/Pelvis CT 12/11/22 17:12 IMPRESSION: Mild pelvic free fluid. Electronically Signed: Sim Andujar DO at 18:56 EDT Reading Location ID and State: [facility] / [place] Tel [phone], Service support , Charges/Coding Visit Charges Inpatient E&M: 88869 Init Hosp L2
[2022-12-11 22:00] VITALS: BP 120/73; PULSE 70; RESP 16; O2SAT 98
[2022-12-11] MEDS: proMETHazine 25 MG/ML Syringe 12.5 MG IM (23:10)
[2022-12-11 23:13] VITALS: BP 126/78; PULSE 70; RESP 16; O2SAT 98
== END 2022-12-11 23:14 | disposition home or self-care (01) ==
PROVIDERS: Emergency Provider Emergency Medicine; Visit Provider Emergency Medicine
DX: R11.15 Cyclical vomiting syndrome unrelated to migraine (principal); R10.11 Right upper quadrant pain; G89.29 Other chronic pain; R63.4 Abnormal weight loss; F17.210 Nicotine dependence, cigarettes, uncomplicated; Z68.20 Body mass index [BMI] 20.0-20.9, adult
CPT/HCPCS: 74177; 80048; 80076; 83605; 83690; 85025; 96365; 96372; 96375; 99285; J7030; Q9967; A4216; J2405; J3490

== ENCOUNTER 2023-11-03 13:51 | Observation (INO) | payer MEDICAID, SELFPAY ==
[2023-11-03 13:51] VITALS: BP 92/78; PULSE 77; RESP 24; TEMP 36.1; O2SAT 97; BMI 18.6
--- NOTE | 2023-11-03 15:17 | CT_ITS ---
STUDY: CT ABDOMEN AND PELVIS WITH CONTRAST REASON FOR EXAM: Male, 38 years old. abdominal pain RADIATION DOSAGE (If Supplied By Facility): CTDIvol = ( 6.17 ) mGy, DLP = ( 297.49 ) mGycm TECHNIQUE: Transaxial images were obtained from the dome of the diaphragm to the symphysis pubis without oral contrast. IV 100mL Isovue-[id number] was administered. Sagittal and coronal images were reconstructed. Individualized dose optimization techniques were used for this CT. COMPARISON: December 11, 2022 FINDINGS: The visualized lung bases are unremarkable. The visualized portions of the heart are within normal limits. Liver is normal size and homogeneous attenuation. There is a very tiny 4 to 5 mm hypoattenuated nodule in the right lobe which is too small to characterize.. This is not clearly cystic but may represent hemangioma. MRI would be helpful for further evaluation Bile ducts are nondilated.. Normal gallbladder and extrahepatic biliary system. Normal spleen. Normal pancreas. Normal bilateral adrenal glands. Normal right kidney. Normal left kidney. Normal visualized stomach. No evidence for small bowel obstruction however there appear to be multiple loops of small bowel demonstrating mild thickening of the folds as well as loops of sigmoid demonstrating mild thickening of folds suggesting the possibility of inflammatory bowel disease. . No definitive evidence for acute appendicitis Normal abdominal aorta. Normal inferior vena cava. Normal retroperitoneum. Normal urinary bladder. Normal abdominal wall. Normal osseous structures. CT/Abdomen/Pelvis W IV Cont ONLY IMPRESSION: No evidence for small bowel obstruction however there are findings suggestive of nonspecific inflammatory bowel disease however clinical correlation is recommended. No definitive evidence for acute appendicitis. Tiny hypoattenuated nodule in the right lobe of the liver of uncertain etiology. This may be further characterized with MRI if clinically warranted Electronically Signed: Juan R Goodwin MD at 17:54 EDT ,
[2023-11-03] MEDS: Morphine 4 MG/ML Syringe IV (15:46)
[2023-11-03] MEDS: Ondansetron 4 MG/2 ML Vial IV ×2 (15:46→18:35)
[2023-11-03] MEDS: 0.9% Normal Saline (1000mL) 1,000 ML 999 ML IV (15:46)
[2023-11-03 15:51] VITALS: BP 100/54; PULSE 74; RESP 18; O2SAT 99
[2023-11-03 15:51] LABS: Absolute Lymphocyte Count 1.17 X10^3/uL (0.83-4.51); Absolute Neutrophil Count 5.2 X10^3/uL (2.0-7.7); Basophil# 0.02 X10^3/uL; Basophil% 0.3 % (0-1); Hematocrit 45.8 % (40-54); Hemoglobin 15.6 g/dL (13.0-16.5); Lymphocyte # 1.17 X10^3/ul (0.83-4.51); Lymphocyte % 16.9 % (19-41); Mean Corp Hgb Conc 34.1 g/dL (32-36); Mean Corpuscular Hgb 29.3 pg (27.0-32.0); Mean Corpuscular Volume 86.1 fL (80-94); Mean Platelet Vol. 10.5 fl (6.2-12.0); Monocyte# 0.57 X10^3/uL; Monocyte% 8.2 % (0-10); NRBC Flagged by Analyzer 0 % (0-5); Neutrophil # 5.16 X10^3/uL (2.7-7.7); Neutrophil % 74.3 % (47-70); Platelet Count 253 K/mm3 (150-450); RBC Distribution Width CV 12.4 % (11.6-14.6); RBC Distribution Width SD 38.7 fl (35.1-43.9); Red Blood Count 5.32 M/mm3 (4.6-6.2); White Blood Count 6.9 K/mm3 (4.4-11.0)
[2023-11-03 16:13] LABS: ALB/GLOB Ratio 1.2 RATIO (0.9-2.4); AST(SGOT) 14 U/L (15-37); Alanine Aminotransfer ALT/SGPT 12 U/L (16-61); Alkaline Phosphatase 58 U/L (45-117); Anion Gap 12 (5-15); BUN 23 mg/dL (7-18); BUN/Creat Ratio 24.4 RATIO (10-20); Calcium,Total 10.1 mg/dL (8.5-10.1); Chloride 103 mmol/L (98-107); Creatinine, Serum 0.94 mg/dL (0.70-1.30); EST Glomerular Filtration Rate 96 mL/min (>60); Est Glom Filt Rate - Afr Amer 116 mL/min (>60); Glucose 100 mg/dL (74-106); Lactic Acid 1.4 mmol/L (0.4-1.9); Lipase 21 U/L (13-75); Potassium 3.4 mmol/L (3.5-5.1); Sodium Level 135 mmol/L (136-145)
--- NOTE | 2023-11-03 16:49 | EDS_ITS ---
HPI History of Present Illness Chief Complaint: Abd Pain Narrative Narrative: Chief complaint and HPI: Abdominal pain. 38-year-old male with history of chronic abdominal pain, history of opiate substance abuse on Suboxone presents for evaluation of abdominal pain, nausea, vomiting. Patient states for the past couple years he has been having recurrent epigastric/right upper quadrant abdominal pain. He states he has had multiple workups that have been unremarkable. Patient states that he was referred to GI for endoscopy. He states it was scheduled however on the day of the procedure that could not get IV access and the endoscopy was not performed. Patient states 5 days ago his abdominal pain reoccurred and is progressively worsening. He describes it as sharp and crampy. In the epigastrium and right upper quadrant. Radiates to the right lower quadrant. Denies abdominal surgery. Endorses nausea and vomiting. States he has been unable to eat or drink. Denies any chest pain, shortness of breath, fever, diarrhea, constipation, penile or testicular pain. Endorses decreased urination but denies dysuria or hematuria. States he has not been able to take his Suboxone in 5 days. Does admit to intermittent marijuana use. Review of systems: See HPI Medications: As listed on the chart Allergies: As listed on the chart PFSH: Per chart Vital signs: As listed on the chart. Reviewed. Physical exam: Gen: A&O x3, uncomfortable secondary to pain Head: Normocephalic, atraumatic Eyes: No sclera icterus, conjunctiva clear ENT: Dry mucous membranes Neck: Trachea midline, No JVD CV: RRR, no murmurs, no peripheral edema Resp: Lungs CTA BL, no w/r/c GI: Abd soft, non-distended, tender to palpation in the right upper quadrant and epigastrium-mildly tender in the right lower quadrant, + voluntary guarding, no rebound rigidity : No CVA tenderness. Circumcised penis. No penile tenderness or discharge. No penile or testicular swelling. Normal lie and position of the testicles. No testicular tenderness, masses, or skin changes. Cremasteric reflexes intact and equal bilaterally. No rashes. No palpable hernias. Musc: Full ROM, no deformity Skin: Warm, dry Neuro: Alert, oriented, grossly intact, sensation intact [facility] Medical History Abdominal pain Acute UTI Altered mental status Anxiety Depression Former smoker Gastric reflux Hepatitis Injury of head and neck Migraine headache Nausea & vomiting Opiate overdose Pilon fracture of right tibia Polysubstance (including opioids) dependence, daily use Restless legs Substance abuse Unexplained weight loss Unresponsiveness Wears contact lenses Home Medications ?Medication ?Instructions ?Recorded ?Last Taken ?Type buprenorphine 8 mg-naloxone 2 mg 1 ea sublingual BID 08/19/19 Unknown History sublingual film dicyclomine 20 mg tablet 20 mg PO TID PRN abdominal pain 12/11/22 Unknown Rx #20 tabs omeprazole 20 mg capsule,delayed 20 mg PO DAILY 30 days #30 caps 12/11/22 Unknown Rx release promethazine 25 mg rectal 25 mg LA Q6H PRN nausea and 12/11/22 Unknown Rx suppository vomiting #12 ea promethazine 25 mg tablet 25 mg PO Q6H PRN nausea and 12/11/22 Unknown Rx vomiting #20 tabs Allergy/AdvReac Type Severity Reaction Status Date / Time No Known Allergies Allergy Verified 11/03/23 13:54 Family History Grandmother Heart disease Surgical History Status post open reduction and internal fixation (ORIF) of fracture Social History Smoking Status: Current every day smoker tobacco type: cigarettes alcohol intake: never substance use type: former substance user Date of last use: opioid EXAM Physical Exam Const Vital Signs: 11/03/23 13:51 11/03/23 15:51 Temperature 97.0 F L Temperature Source Temporal Pulse Rate 77 74 Respiratory Rate 24 H 18 Blood Pressure 92/78 100/54 L Blood Pressure Mean 82 69 Pulse Ox 97 99 Oxygen Delivery Method Room Air Room Air MDM MDM MDM Narrative Medical decision making narrative: 38-year-old male with history of chronic abdominal pain presents for evaluation of abdominal pain, nausea, vomiting. Has not been able to take his Suboxone. Decreased p.o. intake. Differential diagnosis includes but is not limited to cholecystitis, pancreatitis, appendicitis, viral illness, Suboxone withdrawal, electrolyte abnormality, dehydration, UTI, IBS, PUD. NS bolus, morphine, Zofran ordered for symptoms. Abdominal pain workup ordered including CT abdomen pelvis. CBC without leukocytosis or anemia. BMP shows mild hyponatremia at 135 and hypokalemia of 3.4. No MC. This is consistent with patient's nausea and vomiting and poor p.o. intake. Bilirubin is mildly elevated at 1.2. Mild AST and ALT at 14 and 12. This appears to be patient's baseline on previous labs. Lipase unremarkable. Lactic acid unremarkable. CT abdomen pelvis and urine pending at this time. Patient was signed out to Dr. Lazaro. Final disposition pending results. EKG: Interpreted by me/EM physician: EKG shows normal sinus rhythm without any acute ischemic changes. Heart rate 62. Impression: 1. Abdominal pain 2. Nausea and vomiting 3. Dehydration 4. Hyperbilirubinemia 5. Mild transaminitis Lab Data Labs: Laboratory Results - last 24 hr 11/03/23 15:30 WBC 6.9 RBC 5.32 Hgb 15.6 Hct 45.8 MCV 86.1 MCH 29.3 MCHC 34.1 RDW Std Deviation 38.7 RDW Coeff of Bennie 12.4 Plt Count 253 MPV 10.5 Immature Gran % (Auto) 0.300 Neut % (Auto) 74.3 H Lymph % (Auto) 16.9 L [place] % (Auto) 8.2 Eos % (Auto) 0.0 Baso % (Auto) 0.3 Absolute Neuts (auto) 5.2 Absolute Lymphs (auto) 1.17 Nucleated RBC % 0 Sodium 135 L Potassium 3.4 L Chloride 103 Carbon Dioxide 20.0 L Anion Gap 12 BUN 23 H Creatinine 0.94 Estim Creat Clear Calc 95.70 Est GFR (MDRD) Af Amer 116 Est GFR (MDRD) Non-Af 96 BUN/Creatinine Ratio 24.4 H Glucose 100 Lactic Acid 1.4 Calcium 10.1 Total Bilirubin 1.20 H AST 14 L ALT 12 L Alkaline Phosphatase 58 Total Protein 9.0 H Albumin 5.0 Globulin 4.0 Albumin/Globulin Ratio 1.2 Lipase 21 Discharge Plan Triage Chief Complaint: Abd Pain ED Provider: Ranjit Kim Dx/Rx/DC Orders Prescriptions: No Action buprenorphine-naloxone 1 EACH film 1 ea sublingual BID omeprazole 20 mg capsule,delayed release(DR/EC) 20 mg PO DAILY 30 Days Qty: 30 0RF promethazine 25 mg tablet 25 mg PO Q6H PRN (Reason: nausea and vomiting) Qty: 20 0RF promethazine 25 mg suppository 25 mg LA Q6H PRN (Reason: nausea and vomiting) Qty: 12 0RF dicyclomine 20 mg tablet 20 mg PO TID PRN (Reason: abdominal pain) Qty: 20 0RF Primary Care Provider: Care Physician,No Primary Referrals: Care Physician,No Primary [Primary Care Provider] - Print Language: Prydeinig
--- NOTE | 2023-11-03 18:24 | ED.RN ---
RN to give pt Haldol for nausea. Pt refusing, It locks my jaw. you're giving me fucking psych meds and I'm not psych. RN attempted to explain reason for this order and how it would benefit him, pt refused to listen. Pt also refusing 500mL bag of fluids, If this hospital isn't going to help me then I'll just leave. Dr. Kolb aware of pt refusal of medications.
[2023-11-03] MEDS: 0.9% Normal Saline (500mL Bag) 500 ML 999 ML IV (18:35)
[2023-11-03 19:00] VITALS: BP 120/70; PULSE 70; RESP 16; O2SAT 97
[2023-11-03 20:30] VITALS: BP 122/74; PULSE 75; RESP 16; O2SAT 97
[2023-11-03 20:31] LABS: Bacteria 0 SEEN /hpf (None Seen); Mucous, Urine 0 SEEN /hpf (<or=2+); Red Blood Cells-Urine 0 SEEN /hpf (0-5); Squamous Epithelial Cells - UA 0 SEEN /hpf (0-5); White Blood Cells 0 SEEN /hpf (0-5)
[2023-11-03] MEDS: 0.9% Normal Saline (1000mL) 1,000 ML 100 ML IV (20:31)
[2023-11-03] MEDS: proMETHazine 25 MG/ML Syringe 12.5 MG IM (20:38)
[2023-11-03 20:41] LABS: Color, Urine Straw (Yellow); Glucose, Dipstick Normal (Normal); Leukocyte Esterase-Dipstick 25 /ul (Negative); Nitrite-Dipstick Negative (Negative); Occult Blood-Urine Negative /ul (Negative); Protein-Dipstick 30 mg/dl (Negative); Specific Gravity, Urine 1.005 (1.002-1.030); Urine Bilirubin Dipstick Negative (Negative); Urine Clarity Clear (Clear); Urine Urobilinogen 1 mg/dl (Normal)
--- NOTE | 2023-11-03 20:45 | HP.PCM.HOS_ITS ---
HPI - General General Date of Admission: 11/03/23 Date of Service: 11/03/23 Chief Complaint: Abdominal pain, N/V HPI Narrative The patient is a 38 y/o M w/ PMHx: Anxiety and Depression, GERD, Former tobacco use, Former Polysubstance abuse w/ Hx Hepatitis C, Chronic abdominal pain with last visit with surgery noted 12/11/2022 with chronic at least 2-year right- sided abdominal discomfort with CT imaging with no secondary signs of inflammation or appendix abnormalities at that time with no further up following this with also noted episodes of cyclic nausea and emesis who presents to the [facility] ED on 11/03/23 with history of 5 days of abdominal discomfort and emesis with CT scan with no acute process with last sutures of cannabis he reports 4 days prior previously told that he has had cyclic emesis secondary to cannabis but continued usage prompting eventual ED evaluation. Patient does state that he was referred for an endoscopy but unfortunately it was delayed secondary to difficulty with IV access. He currently reports 5 days of ongoing abdominal discomfort progressively worsening reported as sharp and crampy in the epigastric and right upper quadrant region radiating to the right lower quadrant with nausea and emesis associated also reporting that has been unable to take a Suboxone for 5 days. He notes his pain prior in his abdomen was 8-9/10 in severity, now down to 4-5/10 in severity, worse with palpation. Workup in the ED included T97, heart rate 77, BP initially 92/78 with most recent repeat 122/74, respiratory rate 16, 97% on room air, CBC with WC 6.9, hemoglobin 15.6, platelet 253 without shift, CMP with sodium 135, potassium 3.4, carbon oxide 20, BUN/creatinine 23/0.94, T. bili 1.20, AST/LT 14/12 otherwise hepatic profile not marked appearing, lipase 21, urinalysis pending per ED, urine drug screen pending per ED, CT abdomen pelvis with contrast with no evidence of any small bowel obstruction however findings suggestive of possibly nonspecific inflammatory bowel disease, no definitive evidence for acute appendicitis, tiny hypoattenuated nodule in the right liver lobe of uncertain etiology. In the ED patient ministered 2 L normal saline as well as maintenance IV fluids, Zofran 4 mg IV x 2, Phenergan 12.5 mg IM x 1 in addition to morphine 4 mg IV x 1 at 1500 earlier in the day. He was also ordered Haldol 2 mg IV x 1 given his intractable nausea but refused secondary to reporting jaw spasms/locking with this medication prior. [facility] Medical History (Updated 11/03/23 @ 21:[address] Sandra Retana MD) Anxiety and depression Hepatitis C Cyclical vomiting with nausea Chronic abdominal pain Wears contact lenses Restless legs Migraine headache Injury of head and neck Gastric reflux Former smoker Substance abuse Polysubstance (including opioids) dependence, daily use Pilon fracture of right tibia Home Medications ?Medication ?Instructions ?Recorded ?Last Taken ?Type buprenorphine 8 mg-naloxone 2 mg 1 ea sublingual BID 08/19/19 Unknown History sublingual film dicyclomine 20 mg tablet 20 mg PO TID PRN abdominal pain 12/11/22 Unknown Rx #20 tabs omeprazole 20 mg capsule,delayed 20 mg PO DAILY 30 days #30 caps 12/11/22 Unknown Rx release promethazine 25 mg rectal 25 mg AL Q6H PRN nausea and 12/11/22 Unknown Rx suppository vomiting #12 ea promethazine 25 mg tablet 25 mg PO Q6H PRN nausea and 12/11/22 Unknown Rx vomiting #20 tabs Allergy/AdvReac Type Severity Reaction Status Date / Time No Known Allergies Allergy Verified 11/03/23 13:54 Family History (Updated 11/03/23 @ 21:[address] Sandra Retana MD) Grandmother Heart disease Hypertension CAD (coronary artery disease) Myocardial infarction Mother No problems noted. other (Patient does not know his father nor his paternal medical history.) Surgical History (Updated 11/03/23 @ 21:[address] Sandra Retana MD) Status post open reduction and internal fixation (ORIF) of fracture Social History (Updated 11/03/23 @ 21:[address] Sandra Retana MD) household members: none Smoking Status: Former smoker how long ago did patient quit smoking: Quit ~ 6 months prior, smoked 1/2 ppd since 27 until quit. alcohol intake: never substance use type: former substance user Date of last use: Former heroin, cocaine, crystal meth and benzodiazepine usage. and marijuana ROS ROS Narrative Admission Review of Systems: CONSTITUTIONAL: No weight loss, fever, chills, + weakness or fatigue. HEENT: Eyes: No visual loss, blurred vision, double vision or yellow sclerae. Ears, Nose, Throat: No hearing loss, sneezing, congestion, runny nose or sore throat. SKIN: No rash or itching, lesions, wounds. CARDIOVASCULAR: No chest pain, chest pressure or chest discomfort, palpitations, edema, orthopnea, syncopal events. RESPIRATORY: No shortness of breath, cough or sputum, wheezing, hemoptysis. GASTROINTESTINAL: + anorexia, nausea, vomiting, abdominal pain. No diarrhea, melena, BRBPR. GENITOURINARY: No dysuria, frequency, urgency or retention. NEUROLOGICAL: + Chronic headache. No dizziness, syncope, paralysis, ataxia, numbness or tingling in the extremities, focal weakness, change in bowel or bladder control, seizure. MUSCULOSKELETAL: + muscle, back pain, joint pain or stiffness. HEMATOLOGIC: No anemia, bleeding or bruising. LYMPHATICS: No enlarged nodes. No history of splenectomy. PSYCHIATRIC: + history of anxiety and depression. ENDOCRINOLOGIC: + reports of sweating, cold or heat intolerance. No polyuria or polydipsia. ALLERGIES: No history of asthma, hives, eczema or rhinitis. Vital Signs Vital Signs Vital Signs: 11/03/23 13:51 11/03/23 15:51 11/03/23 19:00 Temperature 97.0 F L Temperature Source Temporal Pulse Rate 77 74 70 Respiratory Rate 24 H 18 16 Blood Pressure 92/78 100/54 L 120/70 Blood Pressure Mean 82 69 86 Pulse Ox 97 99 97 Oxygen Delivery Method Room Air Room Air 11/03/23 20:30 Temperature Temperature Source Pulse Rate 75 Respiratory Rate 16 Blood Pressure 122/74 H Blood Pressure Mean 90 Pulse Ox 97 Oxygen Delivery Method Room Air Weight Weight: 137 lb 4.8 oz Body Mass Index (BMI) 18.6 Physical Exam Narrative Physical Examination: General: Awake, alert, oriented x 3 and cooperative, laying in the ED bed, fatigued, notes abdominal discomfort is improved, nausea currently abated. Skin: Normal color, normal turgor, no icterus, no cyanosis. HEENT: AT/NC, EOMI, PERRLA, dry MM, no carotid bruits or JVD noted. Lungs: Mildly diminished, greater bases, appropriate effort, no rales, ronchi or wheezing. Heart: Regular rate and rhythm; no gallop, rub audible. Abdomen: Soft, with stethoscope appearance of mild discomfort to general deep pressure with no rebound or guarding, with manual similarly mild generalized discomfort but no rebound or guarding, nondistended, hyperactive BS, no appreciated HSM. Extremities: No cyanosis, clubbing, or edema. Neurological: Patient awake, alert, oriented as noted, cognitive function intact; pupils equally reactive to light and accommodation, cranial nerves gross normal, moving all 4 extremities, no focal deficits, strength moderately globally decreased secondary to acute complaints Psychiatric: Affect appears fatigued, no acute evidence of depressive or anxiety feelings but does have underlying history. Results Lab / Micro Data 11/03/23 15:30 11/03/23 15:30 Labs: Laboratory Results - last 24 hr 11/03/23 15:30: WBC 6.9, RBC 5.32, Hgb 15.6, Hct 45.8, MCV 86.1, MCH 29.3, MCHC 34.1, RDW Std Deviation 38.7, RDW Coeff of Bennie 12.4, Plt Count 253, MPV 10.5, Immature Gran % (Auto) 0.300, Neut % (Auto) 74.3 H, Lymph % (Auto) 16.9 L, [place] % (Auto) 8.2, Eos % (Auto) 0.0, Baso % (Auto) 0.3, Absolute Neuts (auto) 5.2, Absolute Lymphs (auto) 1.17, Nucleated RBC % 0, Sodium 135 L, Potassium 3.4 L, Chloride 103, Carbon Dioxide 20.0 L, Anion Gap 12, BUN 23 H, Creatinine 0.94, Estim Creat Clear Calc 95.70, Est GFR (MDRD) Af Amer 116, Est GFR (MDRD) Non-Af 96, BUN/Creatinine Ratio 24.4 H, Glucose 100, Lactic Acid 1.4, Calcium 10.1, T otal Bilirubin 1.20 H, AST 14 L, ALT 12 L, Alkaline Phosphatase 58, Total Protein 9.0 H, Albumin 5.0, Globulin 4.0, Albumin/Globulin Ratio 1.2, Lipase 21 11/03/23 20:07: Ur Drug Screen Comment Imaging Radiology Impression Abdomen/Pelvis CT 11/03/23 15:17 IMPRESSION: No evidence for small bowel obstruction however there are findings suggestive of nonspecific inflammatory bowel disease however clinical correlation is recommended. No definitive evidence for acute appendicitis. Tiny hypoattenuated nodule in the right lobe of the liver of uncertain etiology. This may be further characterized with MRI if clinically warranted Electronically Signed: Juan R Goodwin MD at 17:54 EDT , Assessment & Plan Assessment/Plan (1) Abdominal pain: QUALIFIERS: Abdominal location: unspecified location Qualified Code(s): R10.9 - Unspecified abdominal pain (2) Nausea & vomiting: QUALIFIERS: Vomiting Intractability: unspecified Vomiting type: u nspecified Qualified Code(s): R11.2 - Nausea with vomiting, unspecified PLAN: Plan The patient is a 38 y/o M w/ PMHx: Anxiety and Depression, GERD, Former tobacco use, Former Polysubstance abuse w/ Hx Hepatitis C, Chronic abdominal pain with last visit with surgery noted 12/11/2022 with chronic at least 2-year right- sided abdominal discomfort with CT imaging with no secondary signs of inflammation or appendix abnormalities at that time with no further up following this with also noted episodes of cyclic nausea and emesis who presents to the [facility] ED on 11/03/23 with history of 5 days of abdominal discomfort and emesis with CT scan with no acute process with last sutures of cannabis he reports 4 days prior previously told that he has had cyclic emesis secondary to cannabis but continued usage prompting eventual ED evaluation. #1. Acute on chronic abdominal pain with intractable nausea and emesis, suspected cyclic vomiting syndrome associate with cannabis usage complicated by #2 secondary to inability to take his scheduled suboxone regimen: Wll admit to [facility], maintain on IVFs, NPO until clinically improved, maintain on IV PPI, IV/po pain control, will trend CBC, CMP, will have as needed antiemetic regimen and as noted #2 will initiate Subutex regimen given likely withdrawal symptoms also contributing. #2. Acute Opiate Withdrawal: Unfortunately patient has been unable to take any of his Suboxone secondary to cyclic nausea and emesis, will initiate Subutex as taper to at least assuage his symptoms and once clarify his home dose suboxone may consider restarting if no narcotic regimen is needed, as needed tylenol, ibuprofen, bowel regimen, gabapentin, Bentyl, Vistaril, methocarbamol, clonidine, PRN nightly trazodone for insomnia, IV fluids, IV antiemetics. Case management consulted. #3. Hyponatremia, mild, suspected hypovolemia with GI losses: Admission CMP with sodium 135, chloride 103, BUN mildly elevated 23, will continue hydration repeat CMP in AM. #4. Hypokalemia: Admission K+ 3.4, magnesium level requested, supplementation given, repeat level in AM. #5. Mild hyperbilirubinemia: Very mild, admission CMP with total bilirubin 1.20, previous primarily ranges 0.8-1.0, no marked LFT elevation, will continue to hydrate and repeat CMP in AM as noted. #6. Polysubstance abuse history w/ Hepatitis C history: UDS pending upon ED requested evaluation, notes last usage of cannabis approximately 4 days prior with history of previous cyclic vomiting syndrome associated with cannabis per records reporting clean status for > 3 years on suboxone w/ history of heroin and cocaine as well as crystal meth and benzodiazepine usage previously per records. As noted above suspect withdrawal a component given inability to take his suboxone. #7. Former Tobacco Abuse: Encouraged continued tobacco cessation. #8. DVT prophylaxis: Lovenox. Charges/Coding Visit Charges Inpatient E&M: 31373 Init Hosp L3
[2023-11-03 20:46] LABS: Ketone-Dipstick 150 mg/dl (Negative)
[2023-11-03 21:11] LABS: Amphetamine Urine VISTA NEGATIVE (<1000 ng/mL); Barbiturate Urine VISTA NEGATIVE (< 200 ng/mL); Benzodiazepine Urine VISTA NEGATIVE (< 200 ng/mL); Cocaine Urine VISTA NEGATIVE (< 300 ng/mL); Ecstacy Urine VISTA NEGATIVE (< 500 ng/mL); Methadone Urine VISTA NEGATIVE (< 300 ng/mL); PCP Urine VISTA NEGATIVE (< 25 ng/mL); THC Urine VISTA POSITIVE (< 50 ng/mL); Vista UDS pH Range 6
[2023-11-03 22:04] VITALS: BP 121/71; PULSE 75; RESP 16; TEMP 36.6; O2SAT 97
[2023-11-03 22:26] VITALS: BMI 16.9
[2023-11-03 22:36] VITALS: BP 134/77; PULSE 91; RESP 14; TEMP 36.8; O2SAT 100
[2023-11-03] MEDS: 0.9% Normal Saline (1000mL) 1,000 ML 125 ML IV (23:20)
[2023-11-03] MEDS: Ondansetron 8 MG Tablet PO (23:23)
[2023-11-03] MEDS: Dicyclomine 10 MG Capsule 20 MG PO (23:23)
[2023-11-04] MEDS: Pantoprazole Sodium 40 MG in 0.9% Normal Saline (100mL MB+) 100 ML 330 MG IV ×3 (00:32→21:29)
[2023-11-04] MEDS: Potassium Chloride 10mEq/100mL 10 MEQ/100 ML IV.SOLN. 100 MEQ IV BOLUS ×3 (00:40→03:04)
[2023-11-04] MEDS: proCHLORPERazine 10 MG/2 ML Vial IV ×2 (01:34→20:08)
[2023-11-04] MEDS: Buprenorphine HCl 2 MG TAB.SUBL SL ×3 (01:34→16:26)
[2023-11-04 03:05] VITALS: BP 128/72; PULSE 82; RESP 14; TEMP 36.8; O2SAT 100
[2023-11-04] MEDS: Enoxaparin 40 MG/0.4 ML Syringe SC (08:23)
[2023-11-04] MEDS: 0.9% Normal Saline (1000mL) 1,000 ML 125 ML IV (08:23)
[2023-11-04 08:35] VITALS: O2SAT 99
[2023-11-04 08:51] VITALS: BP 106/86; PULSE 66; RESP 16; TEMP 36.7; O2SAT 93
--- NOTE | 2023-11-04 11:02 | PN.HOSP_ITS ---
Reason for Visit Reason for Visit: Diagnoses Unspecified abdominal pain (11/03/23) Nausea with vomiting, unspecified (11/03/23) Subjective Subjective Saw patient at bedside this morning. Patient was sitting up fairly comfortably in bed and had good energy level. He stated that he felt moderately improved from yesterday. Was able to keep liquids down this morning without issue. Currently denied any abdominal pain or discomfort. No other acute concerns. Objective Data Objective Data Vital Signs: Vital Signs Temp Pulse Resp BP Pulse Ox O2 Del Method 98.1 F 66 16 106/86 H 93 Room Air 11/04/23 08:51 11/04/23 08:51 11/04/23 08:51 11/04/23 08:51 11/04/23 08:51 11/04/23 08:51 Oxygen Delivery Method Room Air Weight: 63.4 kg Body Mass Index (BMI) 16.9 Intake & Output: Intake and Output for Last 24 Hours 11/02/23 11/03/23 11/04/23 23:59 23:59 23:59 Intake Total 1741.67 / 1791.67 1706.67 / 1706.67 Balance 1741.67 / 1791.67 1706.67 / 1706.67 Lab / Micro Data 11/03/23 15:30 11/03/23 15:30 Labs: Laboratory Results - last 24 hr 11/03/23 15:30: WBC 6.9, RBC 5.32, Hgb 15.6, Hct 45.8, MCV 86.1, MCH 29.3, MCHC 34.1, RDW Std Deviation 38.7, RDW Coeff of Bennie 12.4, Plt Count 253, MPV 10.5, Immature Gran % (Auto) 0.300, Neut % (Auto) 74.3 H, Lymph % (Auto) 16.9 L, Gregory % (Auto) 8.2, Eos % (Auto) 0.0, Baso % (Auto) 0.3, Absolute Neuts (auto) 5.2, Absolute Lymphs (auto) 1.17, Nucleated RBC % 0, Sodium 135 L, Potassium 3.4 L, Chloride 103, Carbon Dioxide 20.0 L, Anion Gap 12, BUN 23 H, Creatinine 0.94, Estim Creat Clear Calc 95.70, Est GFR (MDRD) Af Amer 116, Est GFR (MDRD) Non-Af 96, BUN/Creatinine Ratio 24.4 H, Glucose 100, Lactic Acid 1.4, Calcium 10.1, Magnesium Cancelled, Total Bilirubin 1.20 H, AST 14 L, ALT 12 L, Alkaline Phosphatase 58, Total Protein 9.0 H, Albumin 5.0, Globulin 4.0, Albumin/Globulin Ratio 1.2, Lipase 21 11/03/23 20:07: Urine Color Straw, Urine Clarity Clear, Urine pH 7.0, Ur Specific [place] 1.005, Urine Protein 30 H, Urine Glucose (UA) Normal, Urine Ketones 150 A*, Urine Occult Blood Negative, Urine Nitrite Negative, Urine Bilirubin Negative, Urine Urobilinogen 1 H, Ur Leukocyte Esterase 25 H, Urine RBC 0 SEEN, Urine WBC 0 SEEN, Ur Squamous Epith Cells 0 SEEN, Urine Bacteria 0 SEEN, Urine Mucus 0 SEEN, Urine Opiates Screen POSITIVE H, Urine Methadone Screen NEGATIVE, Ur Barbiturates Screen NEGATIVE, Ur Phencyclidine Scrn NEGATIVE, Ur Amphetamines Screen NEGATIVE, MDMA (Ecstasy) Screen NEGATIVE, U Benzodiazepines Scrn NEGATIVE, Urine Cocaine Screen NEGATIVE, U Cannabinoids Screen POSITIVE H, Ur Drug Screen Comment Radiography Diagnostic Testing: Radiology Impression Abdomen/Pelvis CT 11/03/23 15:17 IMPRESSION: No evidence for small bowel obstruction however there are findings suggestive of nonspecific inflammatory bowel disease however clinical correlation is recommended. No definitive evidence for acute appendicitis. Tiny hypoattenuated nodule in the right lobe of the liver of uncertain etiology. This may be further characterized with MRI if clinically warranted Electronically Signed: Juan R Goodwin MD at 17:54 EDT , Physical Exam Const alert, oriented x3 and no apparent distress Constitutional Narrative: Younger male, thin appearing, good energy level this morning, sitting up comfortably in bed, in no acute distress. General Appearance: cooperative and comfortable HEENT normocephalic, head/scalp atraumatic, hearing grossly normal bilaterally, nasal mucous membranes and turbinates normal and moist oral mucous membranes Eyes PERRL, EOMs intact bilaterally and conjunctivae normal Neck full ROM Chest inspection of chest normal Resp normal respiratory effort, normal air movement, no use of accessory muscles and clear to auscultation bilaterally Cardio regular rate, regular rhythm, no murmurs and peripheral pulses 2+ throughout GI normal to inspection, nondistended, normoactive bowel sounds, soft to palpation, non-tender and non-distended Back/Spine normal ROM Extremity normal to inspection, full ROM and no pedal edema Skin no rashes or lesions noted Neuro no focal motor deficits and no sensory deficits noted Speech: speech normal Psych mental status grossly normal Assessment & Plan Assessment/Plan (1) Abdominal pain: QUALIFIERS: Abdominal location: unspecified location Qualified Code(s): R10.9 - Unspecified abdominal pain (2) Nausea & vomiting: QUALIFIERS: Vomiting type: unspecified Vomiting Intractability: u nspecified Qualified Code(s): R11.2 - Nausea with vomiting, unspecified PLAN: Plan Patient is a 38-year-old male who presented [facility] ED on 11/03/2023 with worsening abdominal pain and intractable nausea and vomiting. 1. Acute on chronic abdominal pain with intractable nausea and vomiting ? GI consulted. CT abdomen pelvis on admit showed findings suggestive of nonspecific inflammatory bowel disease, otherwise no acute findings. Unclear etiology but patient with ongoing marijuana use and recent inability to take scheduled Suboxone regimen as noted below so suspect these factors are contributing. Patient does appear improved on hospital day 2, tolerating liquid diet. Has never had endoscopic evaluation done before and given CT findings, GI consulted for consideration of EGD. Continue IV PPI twice daily for now. Pain and symptom control with medications as noted below. 2. Acute opiate withdrawal ? Patient unable to take home Suboxone recently due to nausea and vomiting as noted above. Will continue Subutex taper initiated on admission as well as other as needed medications per opiate withdrawal order set for now. 3. Marijuana use, polysubstance abuse history with history of hepatitis C ? UDS positive for marijuana and opiates (from suboxone). Last marijuana use was 4 days prior to admission and notes he uses a few times per week. History of drug abuse with heroin, cocaine, meth and benzodiazepines but has been clean for 3 years. Encouraged marijuana cessation on discharge. 4. Mild hypokalemia ? Potassium 3.4 on admit. Presumed secondary to GI losses. Mag and Phos ordered. Replete as needed. 5. Former tobacco abuse ? Encouraged continued cessation. DVT prophylaxis: Lovenox CODE STATUS: Full code, verified Expected disposition: Home, 1 to 2 days Total clinical time spent by myself addressing the patient's medical issues, reviewing all the data, and collaborating with patient's care team: 35 minutes. Charges/Coding Visit Charges Inpatient E&M: 28897 Subs Hosp L2
[2023-11-04 14:55] VITALS: BP 128/82; PULSE 58; RESP 16; TEMP 36.8; O2SAT 100
[2023-11-04] MEDS: 0.9% Normal Saline (250mL Bag) 250 ML 15 ML IV (15:52)
[2023-11-04] MEDS: Ensure Plus High Protein 120 ML LIQUID PO ×2 (16:27→21:29)
[2023-11-04 19:11] LABS: Phosphorus 2.5 mg/dL (2.5-4.9)
[2023-11-04 19:52] VITALS: BP 132/90; PULSE 56; RESP 18; TEMP 36.8; O2SAT 97
[2023-11-04] MEDS: 0.9% Saline Lock 10 ML Syringe IV (20:10)
[2023-11-05] MEDS: Buprenorphine HCl 2 MG TAB.SUBL SL ×2 (00:21→08:08)
[2023-11-05 02:13] VITALS: BP 115/77; PULSE 52; RESP 15; TEMP 36.9; O2SAT 98
[2023-11-05] MEDS: proCHLORPERazine 10 MG/2 ML Vial IV (07:15)
[2023-11-05] MEDS: 0.9% Saline Lock 10 ML Syringe IV ×3 (07:16→23:31)
[2023-11-05 07:34] LABS: Hematocrit 39.1 % (40-54); Hemoglobin 13.1 g/dL (13.0-16.5); Mean Corp Hgb Conc 33.5 g/dL (32-36); Mean Corpuscular Hgb 29.6 pg (27.0-32.0); Mean Corpuscular Volume 88.5 fL (80-94); Mean Platelet Vol. 10.5 fl (6.2-12.0); Platelet Count 253 K/mm3 (150-450); RBC Distribution Width CV 12.5 % (11.6-14.6); RBC Distribution Width SD 40.7 fl (35.1-43.9); Red Blood Count 4.42 M/mm3 (4.6-6.2); White Blood Count 7.4 K/mm3 (4.4-11.0)
[2023-11-05 08:00] VITALS: BP 146/93; PULSE 62; RESP 20; TEMP 36.5; O2SAT 100
[2023-11-05] MEDS: Ondansetron 8 MG Tablet PO (08:08)
[2023-11-05] MEDS: Enoxaparin 40 MG/0.4 ML Syringe SC (08:09)
[2023-11-05] MEDS: Acetaminophen 325 MG Tablet 650 MG PO ×2 (08:14→20:16)
[2023-11-05] MEDS: Gabapentin 300 MG Capsule PO ×2 (08:15→20:16)
[2023-11-05] MEDS: cloNIDine HCl 0.1 MG Tablet PO ×2 (08:15→20:16)
[2023-11-05] MEDS: Methocarbamol 750 MG Tablet PO ×2 (08:15→21:11)
[2023-11-05] MEDS: Pantoprazole Sodium 40 MG Tablet PO (08:16)
[2023-11-05 08:20] LABS: ALB/GLOB Ratio 1.2 RATIO (0.9-2.4); AST(SGOT) 24 U/L (15-37); Alanine Aminotransfer ALT/SGPT 15 U/L (16-61); Albumin, Serum 4.1 g/dL (3.2-5.0); Alkaline Phosphatase 48 U/L (45-117); Anion Gap 9 (5-15); BUN 9 mg/dL (7-18); BUN/Creat Ratio 9.7 RATIO (10-20); Calcium,Total 8.9 mg/dL (8.5-10.1); Chloride 107 mmol/L (98-107); Creatinine, Serum 0.93 mg/dL (0.70-1.30); EST Glomerular Filtration Rate 97 mL/min (>60); Est Glom Filt Rate - Afr Amer 118 mL/min (>60); Estimated Creatinine Clearance 98.47 ml/min; Globulin 3.3 g/dL (2.2-4.2); Glucose 109 mg/dL (74-106); Potassium 3.7 mmol/L (3.5-5.1); Protein, Total 7.4 g/dL (6.4-8.2); Sodium Level 141 mmol/L (136-145)
[2023-11-05 08:32] VITALS: O2SAT 96
[2023-11-05] MEDS: buprenorphine HCL 8 MG TAB.SUBL SL ×2 (11:54→21:11)
[2023-11-05 14:00] VITALS: BP 111/76; PULSE 64; RESP 16; TEMP 36.9; O2SAT 98
--- NOTE | 2023-11-05 15:30 | PCM.PN.HOSP ---
Reason for Visit Reason for Visit: Diagnoses Unspecified abdominal pain (11/03/23) Nausea with vomiting, unspecified (11/03/23) Subjective Subjective Saw patient at bedside this morning. Patient was pacing around the room when I saw him. Noted that he was getting a lower dose of buprenorphine on the Subutex taper prescribed and felt like he was having some withdrawal symptoms related to this. He reported some back pain and generalized anxiousness. He got down some of his breakfast but did feel nauseous with this; however he did not have any episodes of emesis. No other new concerns today. Objective Data Objective Data Vital Signs: Vital Signs Temp Pulse Resp BP Pulse Ox O2 Del Method 98.5 F 64 16 111/76 98 Room Air 11/05/23 14:00 11/05/23 14:00 11/05/23 14:00 11/05/23 14:00 11/05/23 14:00 11/05/23 14:00 Oxygen Delivery Method Room Air Weight: 63.4 kg Body Mass Index (BMI) 16.9 Intake & Output: Intake and Output for Last 24 Hours 11/03/23 11/04/23 11/05/23 23:59 23:59 23:59 Intake Total 1741.67 / 1791.67 2568.34 / 2668.34 860 / 860 Balance 1741.67 / 1791.67 2568.34 / 2668.34 860 / 860 Lab / Micro Data 11/05/23 07:15 11/05/23 07:15 Labs: Laboratory Results - last 24 hr 11/03/23 18:25: Phosphorus 2.5, Magnesium 2.0 11/05/23 07:15: WBC 7.4, RBC 4.42 L, Hgb 13.1, Hct 39.1 L, MCV 88.5, MCH 29.6, MCHC 33.5, RDW Std Deviation 40.7, RDW Coeff of Bennie 12.5, Plt Count 253, MPV 10.5, Sodium 141, Potassium 3.7, Chloride 107, Carbon Dioxide 25.0, Anion Gap 9, BUN 9, Creatinine 0.93, Estim Creat Clear Calc 98.47, Est GFR (MDRD) Af Amer 118, Est GFR (MDRD) Non-Af 97, BUN/Creatinine Ratio 9.7 L, Glucose 109 H, Calcium 8.9, Total Bilirubin 1.20 H, AST 24, ALT 15 L, Alkaline Phosphatase 48, Total Protein 7.4, Albumin 4.1, Globulin 3.3, Albumin/Globulin Ratio 1.2 Physical Exam Const alert, oriented x3 and no apparent distress Constitutional Narrative: Younger male, thin appearing, mildly anxious this morning and pacing around room, otherwise conversing normally. General Appearance: cooperative HEENT normocephalic, head/scalp atraumatic, hearing grossly normal bilaterally, nasal mucous membranes and turbinates normal and moist oral mucous membranes Eyes PERRL, EOMs intact bilaterally and conjunctivae normal Neck full ROM Chest inspection of chest normal Resp normal respiratory effort, normal air movement, no use of accessory muscles and clear to auscultation bilaterally Cardio regular rate, regular rhythm, no murmurs and peripheral pulses 2+ throughout GI normal to inspection, nondistended, normoactive bowel sounds, soft to palpation, non-tender and non-distended Back/Spine normal ROM Extremity normal to inspection, full ROM and no pedal edema Skin no rashes or lesions noted Neuro no focal motor deficits and no sensory deficits noted Speech: speech normal Psych mental status grossly normal Assessment & Plan Assessment/Plan (1) Abdominal pain: QUALIFIERS: Abdominal location: unspecified location Qualified Code(s): R10.9 - Unspecified abdominal pain (2) Nausea & vomiting: QUALIFIERS: Vomiting type: unspecified Vomiting Intractability: unspecified Qualified Code(s): R11.2 - Nausea with vomiting, unspecified PLAN: Plan Patient is a 38-year-old male who presented [facility] ED on 11/03/2023 with worsening abdominal pain and intractable nausea and vomiting. 1. Acute on chronic abdominal pain with intractable nausea and vomiting ? GI consulted. CT abdomen pelvis on admit showed findings suggestive of nonspecific inflammatory bowel disease, otherwise no acute findings. Unclear etiology but patient with ongoing marijuana use and recent inability to take scheduled Suboxone regimen as noted below so suspect these factors are contributing. Patient does appear improved on hospital day 2, tolerating liquid diet. Has never had endoscopic evaluation done before and given CT findings, GI consulted for consideration of EGD. Continue p.o. PPI daily. Pain and symptom control with medications as noted below. 2. Acute opiate withdrawal ? Patient unable to take home Suboxone recently due to nausea and vomiting as noted above. Started on Subutex taper with other as needed medications per opiate withdrawal order set. However, patient began to have worsening withdrawal symptoms on 11/04 and on review of [facility] he was feeling Suboxone regularly. Restarted home Suboxone dosing and will monitor symptoms. 3. Marijuana use, polysubstance abuse history with history of hepatitis C ? UDS positive for marijuana and opiates (from suboxone). Last marijuana use was 4 days prior to admission and notes he uses a few times per week. History of drug abuse with heroin, cocaine, meth and benzodiazepines but has been clean for 3 years. Encouraged marijuana cessation on discharge. 4. Mild hypokalemia ? Potassium 3.4 on admit. Presumed secondary to GI losses. Mag and Phos normal. Replete as needed. 5. Former tobacco abuse ? Encouraged continued cessation. DVT prophylaxis: Lovenox CODE STATUS: Full code, verified Expected disposition: Home, 1 to 2 days Total clinical time spent by myself addressing the patient's medical issues, reviewing all the data, and collaborating with patient's care team: 35 minutes. Charges/Coding Visit Charges Inpatient E&M: 20668 Subs Hosp L2
--- NOTE | 2023-11-05 17:25 | CON.PCM.GI_ITS ---
HPI Consult Data Date of Consult: 11/05/23 HPI Narrative Reason for Consultation: Nausea vomiting and weight loss HPI Narrative: DEVIKA WANG, is a 38 M who presents to [facility] with his grandmother for complaints of progressive abdominal pain and associated nausea and vomiting. He states that he has had episodic abdominal pain with nausea and vomiting on a near monthly basis for the last 2 years. However, over the last 2 weeks he has had the symptoms and this represents his longest episode to date. He denies any sick contacts. He does confirm some associated chills in addition to the other symptoms. According to him, the only food that he is able to take in is oatmeal and he has had troubles keeping this down. As a result he declares that he is lost approximately 30 pounds over the past 2 years stating that he has gone from a weight of 160 pounds to 130 pounds (yet his weight officially here is 153 pounds). During the course of the symptoms, Mr. Wang reports that his primary care provider loss of his medical license and he has not established following with another provider. He also reports that he had a referral to Dr. Alfaro for endoscopy evaluation but when he presented the day of the procedure staff were unable to obtain intravenous access and the procedure was canceled. Given patient's presentation CBC and CT imaging of the abdomen pelvis were performed by emergency medicine. CBC is without evidence of leukocytosis and absolute neutrophil count is also within normal limits. CT imaging of the abdomen pelvis demonstrates an appendix with an appendicolith at its base. There are no secondary signs of appendicitis and the appendiceal width is 3 mm. Patient has a remote history of narcotic abuse and was previously on Suboxone but has been unable to keep this medication down. He also admits to occasional and intermittent use of marijuana which she clarifies is approximately every other day but he has not had any marijuana for 2 weeks. When asked directly about cannabinoid hyperemesis syndrome he states that he has research the heck out of it and is convinced that this is not it as he previously came off of marijuana for a period of 4 months yet still had the above symptoms. [facility] Medical History (Updated 11/03/23 @ 21:[address] David Kolb DO) Anxiety and depression Hepatitis C Cyclical vomiting with nausea Chronic abdominal pain Wears contact lenses Restless legs Migraine headache Injury of head and neck Gastric reflux Former smoker Substance abuse Polysubstance (including opioids) dependence, daily use Pilon fracture of right tibia Home Medications ?Medication ?Instructions ?Recorded ?Last Taken ?Type buprenorphine 8 mg-naloxone 2 mg 1 ea sublingual BID 08/19/19 Unknown History sublingual film Allergy/AdvReac Type Severity Reaction Status Date / Time No Known Allergies Allergy Verified 11/03/23 13:54 Family History (Updated 11/03/23 @ 21:[address] Sandra Retana MD) Grandmother Heart disease Hypertension CAD (coronary artery disease) Myocardial infarction Mother No problems noted. Family History other Surgical History (Updated 11/03/23 @ 21:[address] Sandra Retana MD) Status post open reduction and internal fixation (ORIF) of fracture Social History (Updated 11/03/23 @ 21:[address] Sandra Retana MD) household members: none Smoking Status: Former smoker how long ago did patient quit smoking: Quit ~ 6 months prior, smoked 1/2 ppd since 27 until quit. alcohol intake: never substance use type: former substance user Date of last use: Former heroin, cocaine, crystal meth and benzodiazepine usage. and marijuana ROS ROS Narrative Admission Review of Systems: CONSTITUTIONAL: No weight loss, fever, chills, + weakness or fatigue. HEENT: Eyes: No visual loss, blurred vision, double vision or yellow sclerae. Ears, Nose, Throat: No hearing loss, sneezing, congestion, runny nose or sore throat. SKIN: No rash or itching, lesions, wounds. CARDIOVASCULAR: No chest pain, chest pressure or chest discomfort, palpitations, edema, orthopnea, syncopal events. RESPIRATORY: No shortness of breath, cough or sputum, wheezing, hemoptysis. GASTROINTESTINAL: + anorexia, nausea, vomiting, abdominal pain. No diarrhea, melena, BRBPR. GENITOURINARY: No dysuria, frequency, urgency or retention. NEUROLOGICAL: + Chronic headache. No dizziness, syncope, paralysis, ataxia, numbness or tingling in the extremities, focal weakness, change in bowel or bladder control, seizure. MUSCULOSKELETAL: + muscle, back pain, joint pain or stiffness. HEMATOLOGIC: No anemia, bleeding or bruising. LYMPHATICS: No enlarged nodes. No history of splenectomy. PSYCHIATRIC: + history of anxiety and depression. ENDOCRINOLOGIC: + reports of sweating, cold or heat intolerance. No polyuria or polydipsia. ALLERGIES: No history of asthma, hives, eczema or rhinitis. Physical Exam Narrative Physical Examination: General: Awake, alert, oriented x 3 and cooperative, laying in the ED bed, fatigued, notes abdominal discomfort is improved, nausea currently abated. Skin: Normal color, normal turgor, no icterus, no cyanosis. HEENT: AT/NC, EOMI, PERRLA, dry MM, no carotid bruits or JVD noted. Lungs: Mildly diminished, greater bases, appropriate effort, no rales, ronchi or wheezing. Heart: Regular rate and rhythm; no gallop, rub audible. Abdomen: Soft, with stethoscope appearance of mild discomfort to general deep pressure with no rebound or guarding, with manual similarly mild generalized discomfort but no rebound or guarding, nondistended, hyperactive BS, no appreciated HSM. Extremities: No cyanosis, clubbing, or edema. Neurological: Patient awake, alert, oriented as noted, cognitive function intact; pupils equally reactive to light and accommodation, cranial nerves gross normal, moving all 4 extremities, no focal deficits, strength moderately globally decreased secondary to acute complaints Psychiatric: Affect appears fatigued, no acute evidence of depressive or anxiety feelings but does have underlying history. Lab / Micro Data 11/05/23 07:15 11/05/23 07:15 Labs: Laboratory Results - last 24 hr 11/03/23 18:25: Phosphorus 2.5, Magnesium 2.0 11/05/23 07:15: WBC 7.4, RBC 4.42 L, Hgb 13.1, Hct 39.1 L, MCV 88.5, MCH 29.6, MCHC 33.5, RDW Std Deviation 40.7, RDW Coeff of Bennie 12.5, Plt Count 253, MPV 10.5, Sodium 141, Potassium 3.7, Chloride 107, Carbon Dioxide 25.0, Anion Gap 9, BUN 9, Creatinine 0.93, Estim Creat Clear Calc 98.47, Est GFR (MDRD) Af Amer 118, Est GFR (MDRD) Non-Af 97, BUN/Creatinine Ratio 9.7 L, Glucose 109 H, Calcium 8.9, Total Bilirubin 1.20 H, AST 24, ALT 15 L, Alkaline Phosphatase 48, Total Protein 7.4, Albumin 4.1, Globulin 3.3, Albumin/Globulin Ratio 1.2 Assessment & Plan Assessment/Plan (1) Abdominal pain: QUALIFIERS: Abdominal location: unspecified location Qualified Code(s): R10.9 - Unspecified abdominal pain (2) Nausea & vomiting: QUALIFIERS: Vomiting type: unspecified Vomiting Intractability: u nspecified Qualified Code(s): R11.2 - Nausea with vomiting, unspecified PLAN: Plan The patient is a 38 y/o M with h/o Polysubstance abuse w/ Hx Hepatitis C not treated, presented with episodes of cyclic nausea and emesis who presents to the [facility] ED on 11/03/23 with history of 5 days of abdominal discomfort and emesis with CT scan with no acute process. Acute on chronic abdominal pain with intractable nausea and emesis, suspected cyclic vomiting syndrome associate with cannabis usage and that is on the differential diagnosis in. Also with weight loss he have to think about celiac disease, malabsorptive disease such as protein-losing enteropathy which typically has diarrhea. With his history of drug abuse also on the differential diagnosis is chronic pancreatitis. He should be checked for HIV and possible muscle wasting disease. I will check CPK, ESR, CRP, autoimmune workup and workup for vasculitis associated with chronic hepatitis C and stool test. I also think that he should undergo an upper and lower endoscopy with biopsies as he is never done that before. Charges/Coding Visit Charges Inpatient E&M: 27028 Init Hosp L3
[2023-11-05 18:32] LABS: CRP < 2.90 mg/L (0.0-3.0); Ferritin 92 ng/mL (26-388); Iron 92 ug/dL (65-175); Iron Binding Capacity,Total 291 ug/dL (250-450); PERCENT IRON SATURATION 31.6 % (15.0-55.0); Rheumatoid Factor < 10.0 IU/mL (<15)
[2023-11-05 18:35] LABS: HIV - WCH Non-Reactive (Nonreactive)
[2023-11-05 18:40] LABS: CPK Total, Creatine Kinase 476 U/L (39-308)
[2023-11-05] MEDS: Bisacodyl 5 MG Tablet 20 MG PO (19:01)
[2023-11-05] MEDS: Metoclopramide 10 MG/2 ML Vial 5 MG IV ×2 (19:26→23:31)
[2023-11-05] MEDS: Polyethylene Glycol 3350 BOWEL PREP 1 BOTTLE PO (20:09)
[2023-11-05 20:10] VITALS: BP 140/91; PULSE 56; RESP 18; TEMP 36.4; O2SAT 100
[2023-11-05] MEDS: traZODone 100 MG Tablet PO (22:31)
[2023-11-06] VITALS (12 sets, daily range): BP systolic 106–138; BP diastolic 71–91; PULSE 60–101; RESP 14–20; TEMP 36.4–37.3; O2SAT 95–100; BMI 16.6
[2023-11-06] MEDS: 0.9% Saline Lock 10 ML Syringe IV (03:07)
--- NOTE | 2023-11-06 10:36 | PRE.ANES_ITS ---
ASA Classification* ASA Classification ASA Classification: 2 and E Assessment & Plan Anesthesia* Anesthesia Assessment Anesthesia Assessment: Discussed sedation and/or anesthesia options, risks, benefits, and alternatives with patient/parents/legal guardian/POA. Questions invited. The patient/parents/legal guardian/POA seems to understand and agrees to proceed with anesthesia plan. Reviewed the physical assessment, medical history, allergy history and patient home medications list prior to surgery/procedure/anesthetic and documented any changes. Performed airway and anesthesia risk assessments. Anesthesia Type Anesthesia Type: MAC (see written pre anesthesia record for full assessment) Anesthesia Focused Assessment* Temperature: 99.1 F Pulse Rate: 90 Blood Pressure: 138/91 Respiratory Rate: 18 Pulse Ox: 100 Airway Assessment Mouth opens: >3 cm Mallampati Score: II Focused Labs Anesthesia Preop lab: CBC WBC 7.4 K/mm3 (4.4-11.0) 11/05/23 07:15 RBC 4.42 M/mm3 (4.6-6.2) L 11/05/23 07:15 Hgb 13.1 g/dL (13.0-16.5) 11/05/23 07:15 Hct 39.1 % (40-54) L 11/05/23 07:15 Plt Count 253 K/mm3 (150-450) 11/05/23 07:15 CHEMISTRY Potassium 3.7 mmol/L (3.5-5.1) 11/05/23 07:15 Sodium 141 mmol/L (136-145) 11/05/23 07:15 Magnesium 2.0 mg/dL (1.6-2.6) 11/03/23 18:25 Phosphorus 2.5 mg/dL (2.5-4.9) 11/03/23 18:25 BUN 9 mg/dL (7-18) 11/05/23 07:15 Creatinine 0.93 mg/dL (0.70-1.30) 11/05/23 07:15 Glucose 109 mg/dL (74-106) H 11/05/23 07:15 TSH 1.42 uIU/mL (0.358-3.74) 08/08/20 23:25 COAG PT 14.7 SECONDS (11.7-14.9) 08/19/19 10:33 Pre-Assessment Diagnosis/Proposed Procedure Planned Operative Procedure(s): colon/egd Anesthesia History 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 When Was Last Pacemaker Check QUESTION #4 FULL TEXT: You/Your Family Experience fever (hyperthermia) with Anesthesia Last Oral Intake Last Oral intake: Last Oral Intake NPO since 12:00 11/06/23 10:21 Meds taken in AM with sips of No 11/06/23 10:21 water? Meds patient instructed to take am of surgery PONV PONV - store stock associate: PONV - store stock associate Female HX of Motion Sickness HX of N/V After Surgery Non-Smoker Duration of Surgery greater than 60 minutes Number of Risk Factors PONV Score Height & Weight Height & Weight: Anesthesia: Height & Weight Height 6 ft 4 in 11/06/23 10:21 Weight: 62.039 kg 11/06/23 10:21 Body Mass Index (BMI) 16.6 11/06/23 10:21 Respiratory Assessment Respiratory Assessment - store stock associate: Respiratory Tract Infection Hx - store stock associate Hx Respiratory Tract Infection No 11/05/23 20:07 STOP Sleep Apnea STOP Sleep Apnea - store stock associate: STOP Sleep Apnea - store stock associate Hx Hypertension No 11/03/23 22:26 Hx Sleep Apnea No 11/03/23 22:26 CPAP BIPAP Do you snore loudly (louder No 11/03/23 22:26 than talking or can be heard Do you often feel tired/ No 11/03/23 22:26 fatigued/ sleepy during daytime? Has anyone observed you stop No 11/03/23 22:26 breathing during sleep? STOP Results Negative 11/03/23 22:26 QUESTION #5 FULL TEXT : Do you snore loudly (louder than talking or can be heard through closed doors)? Tobacco Use History Tobacco Use History - store stock associate: Tobacco Use History - store stock associate Tobacco Use Cigarettes 06/13/20 02:53 Smoking Status Former smoker 11/04/23 08:35 Hx Tobacco Use Yes 11/03/23 22:26 Years Smoking Packs Smoked per Day Smoking Cessation Date was Yes - quit smoking within 15 11/03/23 22:26 within the last 15 years years Hx Smoking Cessation Date Hx Smoking Cessation No 11/03/23 22:26 Counseling Hematologic Medial History Hematologic Hx - store stock associate: Hematologic Medical Hx - manager pathology Hx of Blood Transfusion No 11/03/23 22:26 Hx of Transfusion in last 3 No 11/03/23 22:26 Months Date of Last Transfusion (if within last 3 months) Ever experience any problems No 11/03/23 22:26 with transfusion(s)? Specify any problems Hx of Preganancy in last 3 N/A 11/03/23 22:26 Months Nurse Filling Out Transfusion [email or web address] 11/03/23 22:26 & Questions: Date: 11/03/23 11/03/23 22:26 Time: 22:29 11/03/23 22:26 Patient unable to answer at this time (ie. confused, unrespo /Reproduction History /Reproductive History - store stock associate: /Reproductive Hx- store stock associate Hx Now No 11/06/23 10:21 Gestational Age (in weeks): EDC: Hx Hx Para Hx Section SAB No 11/06/23 10:21 Active Medications Active Medications: Current Medications Generic Name Dose Route Start Last Admin Trade Name Freq PRN Reason Stop Dose Admin Acetaminophen 650 mg 11/03/23 22:25 Acetaminophen 650 Mg Suppository RC Q4H PRN PRN Fever, pain 1-10 Acetaminophen 650 mg 11/03/23 22:25 11/05/23 20:16 Acetaminophen 325 Mg Tablet PO 650 mg Q4H PRN PRN Administration Fever, pain 1-10/10 Al Hydrox/Mg Hydrox/Simethicone 30 ml 11/03/23 22:25 Mag /Aluminum/Simeth Wch Udc 30 Ml Oral.Susp PO Q6H PRN PRN dyspesia Albuterol Sulfate 2.5 mg 11/03/23 22:25 Albuterol 2.5 Mg/3 Ml Vial.Neb. INHALATION Q2H PRN PRN Dyspnea, wheezing Bisacodyl 10 mg 11/03/23 22:25 Bisacodyl 10 Mg Suppository RC DAILY PRN Constipation Buprenorphine HCl 8 mg 11/05/23 22:00 11/05/23 21:11 Buprenorphine Hcl 8 Mg Tab.Subl SL 8 mg BID VERA Administration Clonidine 0.1 mg 11/03/23 22:25 11/05/23 20:16 Clonidine Hcl 0.1 Mg Tablet PO 0.1 mg Q8H PRN PRN Administration RESTLESSNESS Dicyclomine HCl 20 mg 11/03/23 22:25 11/03/23 23:23 Dicyclomine 10 Mg Capsule PO 20 mg Q6H PRN PRN Administration Abdominal Discomfort Enoxaparin Sodium 40 mg 11/04/23 10:00 11/05/23 08:09 Enoxaparin 40 Mg/0.4 Ml Syringe SC 40 mg DAILY VERA Administration Gabapentin 300 mg 11/03/23 22:25 11/05/23 20:16 Gabapentin 300 Mg Capsule PO 300 mg Q8H PRN PRN Administration moderate to severe anxiety Hydralazine HCl 10 mg 11/03/23 22:25 Hydralazine 20 Mg/Ml Vial IV Q4H PRN PRN SBP > 160 Protocol Hydroxyzine Pamoate 50 mg 11/03/23 22:25 Hydroxyzine Sumaya 25 Mg Capsule PO Q6H PRN PRN mild anxiety Sodium Chloride 250 mls @ 15 mls/hr 11/03/23 22:51 IV .[id number] PRN Additional IVPB Infusion Sodium Chloride 250 mls @ 15 mls/hr 11/03/23 22:51 11/05/23 08:37 IV Infused .[id number] PRN Infusion Saline Flush Sodium Chloride 1,000 mls @ 15 mls/hr 11/06/23 10:35 IV .Q48H VERA Loperamide HCl 2 mg 11/03/23 22:25 Loperamide 2 Mg Capsule PO Q4H PRN PRN Loose Stools Methocarbamol 750 mg 11/03/23 22:25 11/05/23 21:11 Methocarbamol 750 Mg Tablet PO 750 mg Q6H PRN PRN Administration MUSCLE SPASM Metoclopramide HCl 5 mg 11/05/23 18:00 11/06/23 04:49 Metoclopramide 10 Mg/2 Ml Vial IV Not Given Q6 VERA Nutritional Formula (Lactose Free) 120 ml 11/04/23 18:00 11/05/23 21:05 Ensure Plus High Protein 120 Ml Liquid PO Not Given 4X/DAY VERA Ondansetron HCl 8 mg 11/03/23 22:25 11/05/23 08:08 Ondansetron 8 Mg Tablet PO 8 mg Q8H PRN PRN Administration NAUSEA Pantoprazole Sodium 40 mg 11/05/23 10:00 11/05/23 08:16 Pantoprazole Sodium 40 Mg Tablet PO 40 mg DAILY VERA Administration Prochlorperazine Edisylate 10 mg 11/03/23 22:25 11/05/23 07:15 Prochlorperazine 10 Mg/2 Ml Vial IV 10 mg Q4H PRN PRN Administration Nausea/Vomiting, 2nd line Promethazine HCl 12.5 mg 11/03/23 23:58 Promethazine 25 Mg/Ml Syringe IM Q4H PRN PRN NAUSEA/VOMITING Senna 2 tablet 11/03/23 22:25 Senna Tablet PO QHS PRN Constipation Sodium Chloride 10 - 40 ml 11/03/23 22:51 11/06/23 03:07 0.9% Saline Lock 10 Ml Syringe IV 10 ml UD PRN Administration SALINE FLUSH Trazodone HCl 100 mg 11/03/23 22:25 11/05/23 22:31 Trazodone 100 Mg Tablet PO 100 mg QHS PRN PRN Administration INSOMNIA PFSH Medical History Anxiety and depression Hepatitis C Cyclical vomiting with nausea Chronic abdominal pain Wears contact lenses Restless legs Migraine headache Injury of head and neck Gastric reflux Former smoker Substance abuse Polysubstance (including opioids) dependence, daily use Pilon fracture of right tibia Home Medications ?Medication ?Instructions ?Recorded ?Last Taken ?Type buprenorphine 8 mg-naloxone 2 mg 1 ea sublingual BID 08/19/19 Unknown History sublingual film Allergy/AdvReac Type Severity Reaction Status Date / Time No Known Allergies Allergy Verified 11/03/23 13:54 Family History Grandmother Heart disease Hypertension CAD (coronary artery disease) Myocardial infarction Mother No problems noted. Family History other Surgical History Status post open reduction and internal fixation (ORIF) of fracture Social History household members: none Smoking Status: Former smoker how long ago did patient quit smoking: Quit ~ 6 months prior, smoked 1/2 ppd since 27 until quit. alcohol intake: never substance use type: former substance user Date of last use: Former heroin, cocaine, crystal meth and benzodiazepine usage. and marijuana Review of Systems (Anesthesia) ROS Narrative System reviewed and no additional complaints, except as documented.
[2023-11-06] MEDS: 0.9% Normal Saline (1000mL) 1,000 ML 15 ML IV (10:44)
--- NOTE | 2023-11-06 11:30 | EGD_PTH ---
PATIENT: DEVIKA CLEMENTE LOC: MS3 U#:[id number] AGE/SX: 38/M ROOM: [facility]318 RE11/03/[address]: Dr. Anurag Hernandez DO : 1985 BED: 1 DIS: 11/06/2023 SPEC #: [id number] RECD: 11/06/23 17:11 STATUS: JESSIKA REAnnie #: [id number] BREN: 11/06/23 11:[address]: Dayo Rutherford DEPT: SURGICAL PATHOLOGY RECD BY: Yarelis Uribe ENTERED: 11/09/23 12:22 SP TYPE: EGD BIOPSY OTHR DR: DO Dr. Sandra Funes MD No Primary Care Phys Tissues: A - Duodenum, NOS B - Gastric mucous membrane C - Esophagus, NOS D - Ileum, NOS E - COLON BIOPSY Procedures: Surgery Specimen Level IV Comments: @ Ordering doctor for SUIV edited from to @ hunter JHA at 11/10/23824 @ Submitting doctor edited from to @ by ABHIJEET at 11/10/23824 HEADER OPERATION: Colonoscopy, EGD, biopsy PRE-OP DIAGNOSIS: Abdominal pain, nausea/vomiting TISSUE SUBMITTED: A- Duodenum biopsy, B- Gastric body biopsy, C- Random esophagus biopsy, D- Terminal ileum biopsy, E- Random colonic biopsy MICROSCOPIC DIAGNOSIS A. Duodenum, biopsy: Fragments of duodenal mucosa, no pathologic diagnosis. B. Gastric body, biopsy: Mild gastritis. See microscopic description and comment. C. Esophagus, random biopsy: Fragments of benign squamous epithelium. D. Terminal ileum, biopsy: Fragments of small intestinal mucosa, no pathologic diagnosis. E. Colon, random biopsy: Fragments of colonic mucosa, no pathologic diagnosis. 11/10/2023 COMMENT B. The results of immunohistochemistry for Helicobacter pylori will be reported separately ([id number]). MICROSCOPIC DESCRIPTION Slides are reviewed. B. The specimen shows fragments of gastric mucosa with chronic inflammatory cell infiltrates in the lamina propria consisting of lymphocytes and plasma cells, consistent with mild chronic gastritis. GROSS DESCRIPTION A. Received in fixative is one container labeled with the patient's name and designated Duodenum biopsy. The specimen consists of multiple irregular fragments of light leslie soft tissue that in aggregate measure 1.5 x 0.5 x 0.1 cm. The specimen is totally submitted in one cassette. B. Received in fixative is one container labeled with the patient's name and designated Gastric body biopsy. The specimen consists of one irregular fragment of light leslie soft tissue that in measures 0.6 x 0.5 x 0.1 cm. The specimen is totally submitted in one cassette. C. Received in fixative is one container labeled with the patient's name and designated Random esophagus biopsy. The specimen consists of multiple irregular fragments of light leslie soft tissue that in aggregate measure 0.5 x 0.5 x 0.1 cm. The specimen is totally submitted in one cassette. D. Received in fixative is one container labeled with the patient's name and designated Terminal ileum biopsy. The specimen consists of multiple irregular fragments of light leslie soft tissue that in aggregate measure 0.8 x 0.3 x 0.1 cm. The specimen is totally submitted in one cassette. E. Received in fixative is one container labeled with the patient's name and designated Random colonic biopsy. The specimen consists of multiple irregular fragments of light leslie soft tissue that in aggregate measure 2.0 x 0.5 x 0.1 cm. The specimen is totally submitted in one cassette. SJ 11/09/2023 TC:3 CPT:97349g2
--- NOTE | 2023-11-06 11:30 | IMM_PTH ---
PATIENT: DEVIKA CLEMENTE LOC: MS3 U#:[id number] AGE/SX: 38/M ROOM: [facility]318 RE11/03/[address]: Dr. Anurag Hernandez DO : 1985 BED: 1 DIS: 11/06/2023 SPEC #: [id number] RECD: 11/09/23 09:47 STATUS: JESSIKA REQ #: [id number] BREN: 11/06/23 11:[address]: Dayo Rutherford DEPT: IMMUNOHISTOCHEMISTRY RECD BY: Ankush Israel ENTERED: 11/09/23 09:49 SP TYPE: IMMUNO OTHR DR: DO Dr. Sandra Funes MD No Primary Care Phys Tissues: B - Gastric mucous membrane Procedures: H Pylori (initial) PHYSICIAN & INSTITUTION [place] [id number] SPECIMEN INFORMATION: Tissue Source: B- Gastric body biopsy Clinical Info: Abdominal pain, nausea/vomiting Specimen Number: [id number] CPT code: 49873 METHODOLOGY: Deparaffinized sections of prefer/formalin-fixed tissue or PAP/DQ stained slides are incubated with monoclonal/polyclonal antibodies/oligonucleotide probes. Localization is made via biotin free immunoperoxidase method. Appropriate controls are performed and reacted as expected. Results on target cell population are indicated in the following table: RESULTS: ANTIBODY / CLONE RESULT Block B H Pylori (polyclonal) negative These tests were developed and their performance characteristics determined by [facility]. They may not have been cleared or approved by the U.S. Food and Drug Administration. The FDA has determined that such clearance or approval is not necessary. The above immunohistochemical/dualISH markers are ordered and reviewed by the Pathologist. INTERPRETATION: B. Gastric body, biopsy: Negative for Helicobacter pylori organisms. 11/10/2023
--- NOTE | 2023-11-06 12:01 | PCM.PN.HOSP ---
Reason for Visit Reason for Visit: Diagnoses Unspecified abdominal pain (11/03/23) Nausea with vomiting, unspecified (11/03/23) Subjective Subjective Saw patient at bedside this morning, several family members present. Patient completed colonoscopy prep overnight and plan was for EGD and colonoscopy today. Patient with no new concerns this morning. Objective Data Objective Data Vital Signs: Vital Signs Temp Pulse Resp BP Pulse Ox O2 Del Method 99.1 F 90 18 138/91 H 100 Room Air 11/06/23 10:36 11/06/23 10:36 11/06/23 10:36 11/06/23 10:36 11/06/23 10:36 11/06/23 10:21 Oxygen Delivery Method Room Air Weight: 62.039 kg Body Mass Index (BMI) 16.6 Intake & Output: Intake and Output for Last 24 Hours 11/04/23 11/05/23 11/06/23 23:59 23:59 23:59 Intake Total 2568.34 / 2668.34 1100 / 1100 Balance 2568.34 / 2668.34 1100 / 1100 Lab / Micro Data 11/05/23 07:15 11/05/23 07:15 Labs: Laboratory Results - last 24 hr 11/05/23 07:15: ESR Cancelled, Iron 92, TIBC 291, Iron Saturation 31.6, Ferritin 92, Total Creatine Kinase 476 H, C-React Prot Ext Range < 2.90, Rheumatoid Factor < 10.0, HIV 1&2 Antibody Non-Reactive Physical Exam Const alert, oriented x3 and no apparent distress Constitutional Narrative: Younger male, thin appearing, mildly anxious this morning but otherwise sitting up comfortably in bed, conversing normally, in no acute distress. General Appearance: cooperative HEENT normocephalic, head/scalp atraumatic, hearing grossly normal bilaterally, nasal mucous membranes and turbinates normal and moist oral mucous membranes Eyes PERRL, EOMs intact bilaterally and conjunctivae normal Neck full ROM Chest inspection of chest normal Resp normal respiratory effort, normal air movement, no use of accessory muscles and clear to auscultation bilaterally Cardio regular rate, regular rhythm, no murmurs and peripheral pulses 2+ throughout GI normal to inspection, nondistended, normoactive bowel sounds, soft to palpation, non-tender and non-distended Back/Spine normal ROM Extremity normal to inspection, full ROM and no pedal edema Skin no rashes or lesions noted Neuro no focal motor deficits and no sensory deficits noted Speech: speech normal Psych mental status grossly normal Assessment & Plan Assessment/Plan (1) Abdominal pain: QUALIFIERS: Abdominal location: unspecified location Qualified Code(s): R10.9 - Unspecified abdominal pain (2) Nausea & vomiting: QUALIFIERS: Vomiting type: unspecified Vomiting Intractability: unspecified Qualified Code(s): R11.2 - Nausea with vomiting, unspecified PLAN: Plan Patient is a 38-year-old male who presented [facility] ED on 11/03/2023 with worsening abdominal pain and intractable nausea and vomiting. 1. Acute on chronic abdominal pain with intractable nausea and vomiting ? GI following. CT abdomen pelvis on admit showed findings suggestive of nonspecific inflammatory bowel disease, otherwise no acute findings. Unclear etiology but patient with ongoing marijuana use and recent inability to take scheduled Suboxone regimen as noted below so suspect these factors are contributing. S/p EGD and colonoscopy on 11/05. EGD showed abnormal esophageal motility suspicious for esophageal spasm, erythematous mucosa in gastric body and erythematous duodenopathy. Colonoscopy showed congested mucosa in terminal ileum and entire examined colon. Per GI, plan is for omeprazole 20 mg twice daily, Reglan 5 mg 3 times daily for 3 weeks and prednisone 20 mg daily for 1 month along with gastroparesis diet. Will follow-up with GI but patient likely stable for discharge either later today or tomorrow. 2. Acute opiate withdrawal ? Patient unable to take home Suboxone recently due to nausea and vomiting as noted above. Started on Subutex taper with other as needed medications per opiate withdrawal order set. However, patient began to have worsening withdrawal symptoms on 11/04 and on review of [facility] he was feeling Suboxone regularly. Restarted home Suboxone dosing on 11/04 with improvement in symptoms. 3. Marijuana use, polysubstance abuse history with history of hepatitis C ? UDS positive for marijuana and opiates (from suboxone). Last marijuana use was 4 days prior to admission and notes he uses a few times per week. History of drug abuse with heroin, cocaine, meth and benzodiazepines but has been clean for 3 years. Encouraged marijuana cessation on discharge. 4. Mild hypokalemia ? Potassium 3.4 on admit. Presumed secondary to GI losses. Mag and Phos normal. Replete as needed. 5. Former tobacco abuse ? Encouraged continued cessation. DVT prophylaxis: Lovenox CODE STATUS: Full code, verified Expected disposition: Home, 1 to 2 days Total clinical time spent by myself addressing the patient's medical issues, reviewing all the data, and collaborating with patient's care team: 35 minutes. Charges/Coding Visit Charges Inpatient E&M: 10190 Subs Hosp L2
--- NOTE | 2023-11-06 12:29 | OP.CCLET_ITS ---
11/06/2023 No Primary Care Physician Re : Upper GI endoscopy procedure for [facility] Physician This procedure was performed on Monday, November 06, 2023. My impressions and recommendations are as follows: Impressions : - Abnormal esophageal motility, suspicious for esophageal spasm. - Erythematous mucosa in the gastric body. Biopsied. - Erythematous duodenopathy. Biopsied. - Biopsies were taken with a cold forceps for evaluation of eosinophilic esophagitis. Recommendations : Omeprazole 20 mg p.o. twice daily, Reglan 5 mg p.o. 3 times daily x 3 weeks, prednisone 20 mg a day x 1 month - Written discharge instructions were provided to the patient. - The signs and symptoms of potential delayed complications were discussed with the patient. - Patient has a contact number available for emergencies. - Return to normal activities tomorrow. - Gastroparesis diet. - Continue present medications. My findings are described in the full procedure note, which is enclosed. If I can be of further assistance, please feel free to contact me at . Sincerely, Dayo Rutherford, 11/06/2023 12:28:52 PM This report has been signed electronically.
--- NOTE | 2023-11-06 12:29 | OP.EGD_ITS ---
Patient Name: Lalo Wang Procedure Date: 11/06/2023 11:44 AM Date of : 1985 Age: 38 Procedure: Upper GI endoscopy Indications: Epigastric abdominal pain, Functional Dyspepsia, Indigestion, Failure to respond to medical treatment Providers: Dayo Rutherford DO Medicines: Monitored Anesthesia Care Patient Profile: This is a 38 year old male. Refer to note in patient chart for documentation of history and physical. Patient has symptoms of acute epigastric abdominal pain, chronic epigastric abdominal pain, acute dyspepsia and chronic dyspepsia. Complications: No immediate complications. Procedure: Pre-Anesthesia Assessment: - Prior to the procedure, a History and Physical was performed, and patient medications and allergies were reviewed. The patient is competent. The risks and benefits of the procedure and the sedation options and risks were discussed with the patient. All questions were answered and informed consent was obtained. Patient identification and proposed procedure were verified by the physician in the pre-procedure area. Mental Status Examination: alert and oriented. Airway Examination: normal oropharyngeal airway and neck mobility. Respiratory Examination: clear to auscultation. CV Examination: normal. Prophylactic Antibiotics: The patient does not require prophylactic antibiotics. Prior Anticoagulants: The patient has taken no anticoagulant or antiplatelet agents except for NSAID medication. ASA Grade Assessment: II - A patient with mild systemic disease. After reviewing the risks and benefits, the patient was deemed in satisfactory condition to undergo the procedure. The anesthesia plan was to use monitored anesthesia care (MAC). Immediately prior to administration of medications, the patient was re-assessed for adequacy to receive sedatives. The heart rate, respiratory rate, oxygen saturations, blood pressure, adequacy of pulmonary ventilation, and response to care were monitored throughout the procedure. The physical status of the patient was re-assessed after the procedure. After obtaining informed consent, the endoscope was passed under direct vision. Throughout the procedure, the patient's blood pressure, pulse, and oxygen saturations were monitored continuously. The Colonoscope was introduced through the mouth, and advanced to the second part of duodenum. The upper GI endoscopy was accomplished without difficulty. The patient tolerated the procedure well. Scope In: 12:03:15 PM Scope Out: 12:08:23 PM Total Procedure Duration Time 0 hours 5 minutes 8 seconds Findings: Abnormal motility was noted in the esophagus. The cricopharyngeus was abnormal. There are extra peristaltic waves in the esophageal body. The distal esophagus/lower esophageal sphincter is spastic, but gives up passage to the endoscope. Tertiary peristaltic waves are noted. Biopsies were obtained from the proximal and distal esophagus with cold forceps for histology of suspected eosinophilic esophagitis. Striped mildly erythematous mucosa without bleeding was found in the gastric body. Biopsies were taken with a cold forceps for histology. Verification of patient identification for the specimen was done. Estimated blood loss was minimal. Biopsies were taken with a cold forceps for Helicobacter pylori testing. Verification of patient identification for the specimen was done. Estimated blood loss was minimal. Patchy mildly erythematous mucosa without active bleeding and with no stigmata of bleeding was found in the duodenal bulb and in the first portion of the duodenum. Biopsies were taken with a cold forceps for histology. Verification of patient identification for the specimen was done. Estimated blood loss was minimal. Impression: - Abnormal esophageal motility, suspicious for esophageal spasm. - Erythematous mucosa in the gastric body. Biopsied. - Erythematous duodenopathy. Biopsied. - Biopsies were taken with a cold forceps for evaluation of eosinophilic esophagitis. Recommendation: Omeprazole 20 mg p.o. twice daily, Reglan 5 mg p.o. 3 times daily x 3 weeks, prednisone 20 mg a day x 1 month - Written discharge instructions were provided to the patient. - The signs and symptoms of potential delayed complications were discussed with the patient. - Patient has a contact number available for emergencies. - Return to normal activities tomorrow. - Gastroparesis diet. - Continue present medications. Procedure Code(s): --- Professional --- 54027, Esophagogastroduodenoscopy, flexible, transoral; with biopsy, single or multiple CPT copyright 2021 [employer]. All rights reserved. The codes documented in this report are preliminary and upon form maker plaster review may be revised to meet current compliance requirements. Dayo Rutherford DO 11/06/2023 12:28:52 PM This report has been signed electronically. Number of Addenda: 0 Note Initiated On: 11/06/2023 11:44 AM
--- NOTE | 2023-11-06 12:31 | PCM.POST.ANE ---
Anesthesia: Postop Eval I Current Vital Signs Temperature: 98.9 F Pulse Rate: 88 Blood Pressure: 113/73 Respiratory Rate: 14 Pulse Ox: 99 Oxygen Delivery Method: Room Air Assessment Airway patent: Yes Spontaneous unlabored respirations: Yes Mental status: Awake and Calm nausea: No Vomiting: No Anesthesia Complication: No Fluid Hydration Crystalloid volume administer (ml): 500 Total IV fluid infused: 500 Progress Note Anesthesia document: Postop Eval 1 completed: Yes
--- NOTE | 2023-11-06 12:32 | OP.CCLET_ITS ---
11/06/2023 No Primary Care Physician Re : Colonoscopy procedure for Lalo Wang [facility] Physician This procedure was performed on Monday, November 06, 2023. My impressions and recommendations are as follows: Impressions : - Congested mucosa in the entire examined colon. Biopsied. - Congested mucosa in the terminal ileum. - Several biopsies were obtained in the entire colon. Recommendations : - [facility]. - Gastroparesis diet. - Continue present medications. - Await pathology results. - Repeat colonoscopy in 5 years for surveillance based on pathology results. My findings are described in the full procedure note, which is enclosed. If I can be of further assistance, please feel free to contact me at . Sincerely, Dayo Rutherford, 11/06/2023 12:31:54 PM This report has been signed electronically.
--- NOTE | 2023-11-06 12:32 | OP.COLON_ITS ---
Patient Name: Lalo Wang Procedure Date: 11/06/2023 12:08 PM Date of : 1985 Age: 38 Procedure: Colonoscopy Indications: Clinically significant diarrhea of unexplained origin, Family history of inflammatory bowel disease in a first-degree relative, Generalized abdominal pain, Weight loss Providers: Dayo Rutherford DO Medicines: Monitored Anesthesia Care Patient Profile: This is a 38 year old male. Refer to note in patient chart for documentation of history and physical. Patient has symptoms of acute epigastric abdominal pain, chronic epigastric abdominal pain, acute dyspepsia and chronic dyspepsia. Last Colonoscopy: none. The patient's first colonoscopy is today. Complications: No immediate complications. Procedure: Pre-Anesthesia Assessment: - Prior to the procedure, a History and Physical was performed, and patient medications and allergies were reviewed. The patient is competent. The risks and benefits of the procedure and the sedation options and risks were discussed with the patient. All questions were answered and informed consent was obtained. Patient identification and proposed procedure were verified by the physician in the pre-procedure area. Mental Status Examination: alert and oriented. Airway Examination: normal oropharyngeal airway and neck mobility. Respiratory Examination: clear to auscultation. CV Examination: normal. Prophylactic Antibiotics: The patient does not require prophylactic antibiotics. Prior Anticoagulants: The patient has taken no anticoagulant or antiplatelet agents except for NSAID medication. ASA Grade Assessment: II - A patient with mild systemic disease. After reviewing the risks and benefits, the patient was deemed in satisfactory condition to undergo the procedure. The anesthesia plan was to use monitored anesthesia care (MAC). Immediately prior to administration of medications, the patient was re-assessed for adequacy to receive sedatives. The heart rate, respiratory rate, oxygen saturations, blood pressure, adequacy of pulmonary ventilation, and response to care were monitored throughout the procedure. The physical status of the patient was re-assessed after the procedure. After I obtained informed consent, the scope was passed under direct vision. Throughout the procedure, the patient's blood pressure, pulse, and oxygen saturations were monitored continuously. The Colonoscope was introduced through the anus and advanced to the terminal ileum. The colonoscopy was performed without difficulty. The patient tolerated the procedure well. The quality of the bowel preparation was adequate. The terminal ileum, ileocecal valve, appendiceal orifice, and rectum were photographed. Scope In: 12:11:29 PM Scope Withdrawal Time 0 hours 7 minutes 12 seconds Scope Out: 12:21:30 PM Total Procedure Duration Time 0 hours 10 minutes 1 second Findings: The perianal and digital rectal examinations were normal. An area of mildly congested mucosa was found in the entire colon. Biopsies were taken with a cold forceps for histology. Verification of patient identification for the specimen was done. Estimated blood loss was minimal. A patchy area of the terminal ileum was congested. Several biopsies were obtained with cold forceps for histology randomly in the entire colon. Verification of patient identification for the specimen was done. Estimated blood loss was minimal. Impression: - Congested mucosa in the entire examined colon. Biopsied. - Congested mucosa in the terminal ileum. - Several biopsies were obtained in the entire colon. Recommendation: - [facility]. - Gastroparesis diet. - Continue present medications. - Await pathology results. - Repeat colonoscopy in 5 years for surveillance based on pathology results. Procedure Code(s): --- Professional --- 02241, Colonoscopy, flexible; with biopsy, single or multiple CPT copyright 2021 [employer]. All rights reserved. The codes documented in this report are preliminary and upon fluxer review may be revised to meet current compliance requirements. Dayo Rutherford DO 11/06/2023 12:31:54 PM This report has been signed electronically. Number of Addenda: 0 Note Initiated On: 11/06/2023 12:08 PM
--- NOTE | 2023-11-06 12:59 | PCM.POSTANE2 ---
Anesthesia Postop Eval I Sum Postop Eval Completion status Anesthesia document: Postop Eval 1 completed: Yes Anesthesia Postop Eval I Summary Anesthesia Postop Eval I Summary: Anesthesia Postop Eval I: Assessment Summary Airway patent Yes 11/06/23 12:31 [email or web address] Spontaneous unlabored Yes 11/06/23 12:31 [email or web address] respirations Mental status Awake,Calm 11/06/23 12:31 [email or web address] nausea No 11/06/23 12:31 [email or web address] Vomiting No 11/06/23 12:31 [email or web address] Anesthesia Postop Eval I: Fluid Summary Crystalloid volume administer 500 11/06/23 12:31 [email or web address] (ml) Colloids volume administered ( ml) Blood Product volume administered (ml) Total IV fluid infused 500 11/06/23 12:31 [email or web address] Anesthesia Postop Eval I: Summary Notes Anesthesia Complication No 11/06/23 12:31 [email or web address] Anesthesia Complication Comment: Post-operative progress note Anesthesia: Postop Eval II Evaluation Mental status: Awake Pain Level: 0 nausea: No Vomiting: No
[2023-11-06] MEDS: buprenorphine HCL 8 MG TAB.SUBL SL (13:42)
--- NOTE | 2023-11-06 17:34 | DCINST_ITS ---
Discharge Instructions Diet Discharge Diet: - (gastroparesis diet) Activity Discharge Activity: No Restrictions Follow Up Care Test Results: Test results from this visit will be discussed in further detail at your follow- up appointment, if applicable. Discharge Plan Admission Admit Date/Time: 11/03/23 20:47 Primary Reason for Your Visit: Abdominal pain and nausea with vomiting Attending Provider: Anurag Hernandez Primary Care Provider: Care Physician,No Primary Consulting Providers: Sandra Retana Instructions Additional Instructions / Restrictions: Please take your new medications as noted below. Follow-up with the GI clinic as needed. Discharge Orders/Prescriptions Prescriptions: New omeprazole 20 mg tablet,delayed release (DR/EC) 20 mg PO BID 30 Days Qty: 60 2RF metoclopramide HCl [Reglan] 5 mg tablet 5 mg PO TIDCM 21 Days Qty: 63 0RF prednisone 20 mg tablet 20 mg PO DAILY 30 Days Qty: 30 0RF Continued buprenorphine-naloxone 1 EACH film 1 ea sublingual BID Referrals / Follow Up: Dayo Rutherford DO [Med Staff - Active Staff] - Care Physician,No Primary [Primary Care Provider] - Disposition Disposition (needs filled in before D/C Order can be placed): Home, Self Care
--- NOTE | 2023-11-06 17:42 | DS.PCM_ITS ---
Providers Date of Admission: 11/03/23 Date of Discharge: 11/06/23 Primary Care Physician: Nicole Primary Care Phys Consultations 11/04/23 07:55 Consult: Gastroenterology Routine Consulting Provider: Lona Gastroenteradrien Reason for Consult: intractable N/V EMERGENT Consult: No MD Notified: Yes Date Notified: 11/04/23 Time Notified: 09:03 Method of Notification: Text Reason For Visit: INTRACTABLE N/V, ACUTE ABD PAIN, Diagnosis Discharge Diagnosis (1) Abdominal pain: Status: Acute Code(s): R10.9 - Unspecified abdominal pain Qualifiers: Abdominal location: unspecified location Qualified Code(s): R10.9 - Unspecified abdominal pain (2) Nausea & vomiting: Status: Acute Code(s): R11.2 - Nausea with vomiting, unspecified Qualifiers: Vomiting type: unspecified Vomiting Intractability: unspecified Q ualified Code(s): R11.2 - Nausea with vomiting, unspecified Medications at Discharge Home Medications buprenorphine 8 mg-naloxone 2 mg sublingual film 1 ea sublingual BID 08/19/19 metoclopramide HCl 5 mg tablet (Reglan) 5 mg PO TIDCM 21 days #63 tabs 11/06/23 omeprazole 20 mg tablet,delayed release 20 mg PO BID 30 days #60 tabs 11/06/23 prednisone 20 mg tablet 20 mg PO DAILY 30 days #30 tabs 11/06/23 Hospital Course Operations None Procedures Colonoscopy, EGD, EKG and - (CT abdomen pelvis) Summary of Care Provided Minutes Spent on Discharge: 35 Hospital Course: Patient is a 38-year-old male who presented [facility] ED on 11/03/2023 with worsening abdominal pain and intractable nausea and vomiting. Hospital course as noted below. Patient discharged home in stable condition on 11/05. 1. Acute on chronic abdominal pain with intractable nausea and vomiting ? GI followed. CT abdomen pelvis on admit showed findings suggestive of nonspecific inflammatory bowel disease, otherwise no acute findings. Unclear etiology but patient with ongoing marijuana use and recent inability to take scheduled Suboxone regimen as noted below so suspect these factors are contributing. S/p EGD and colonoscopy on 11/05. EGD showed abnormal esophageal motility suspicious for esophageal spasm, erythematous mucosa in gastric body and erythematous duodenopathy. Colonoscopy showed congested mucosa in terminal ileum and entire examined colon. Per GI, plan is for omeprazole 20 mg twice daily, Reglan 5 mg 3 times daily for 3 weeks and prednisone 20 mg daily for 1 month along with gastroparesis diet. Prescribed these medications on discharge. Stable for discharge home on 11/05. 2. Acute opiate withdrawal ? Patient unable to take home Suboxone recently due to nausea and vomiting as noted above. Started on Subutex taper with other as needed medications per opiate withdrawal order set. However, patient began to have worsening withdrawal symptoms on 11/04 and on review of [facility] he was feeling Suboxone regularly. Restarted home Suboxone dosing on 11/04 with improvement in symptoms. 3. Marijuana use, polysubstance abuse history with history of hepatitis C ? UDS positive for marijuana and opiates (from suboxone). Last marijuana use was 4 days prior to admission and notes he uses a few times per week. History of drug abuse with heroin, cocaine, meth and benzodiazepines but has been clean for 3 years. Encouraged marijuana cessation on discharge. 4. Mild hypokalemia ? Potassium 3.4 on admit. Presumed secondary to GI losses. Mag and Phos normal. Replete as needed. 5. Former tobacco abuse ? Encouraged continued cessation. Total clinical time spent by myself addressing the patient's medical issues, reviewing all the data, and collaborating with patient's care team: 35 minutes. Physical Exam Const alert, oriented x3 and no apparent distress Constitutional Narrative: Younger male, thin appearing, mildly anxious this morning but otherwise sitting up comfortably in bed, conversing normally, in no acute distress. Stable. General Appearance: cooperative HEENT normocephalic, head/scalp atraumatic, hearing grossly normal bilaterally, nasal mucous membranes and turbinates normal and moist oral mucous membranes Eyes PERRL, EOMs intact bilaterally and conjunctivae normal Neck full ROM Chest inspection of chest normal Resp normal respiratory effort, normal air movement, no use of accessory muscles and clear to auscultation bilaterally Cardio regular rate, regular rhythm, no murmurs and peripheral pulses 2+ throughout GI normal to inspection, nondistended, normoactive bowel sounds, soft to palpation, non-tender and non-distended Back/Spine normal ROM Extremity normal to inspection, full ROM and no pedal edema Skin no rashes or lesions noted Neuro no focal motor deficits and no sensory deficits noted Speech: speech normal Psych mental status grossly normal Weight / BMI Weight Weight: 62.039 kg Body Mass Index (BMI) 16.6 ABG / Lab / Microbiology Data 11/05/23 07:15 11/05/23 07:15 Laboratory: Laboratory Results - last 24 hr 11/05/23 07:15: ESR Cancelled, Iron 92, TIBC 291, Iron Saturation 31.6, Ferritin 92, Total Creatine Kinase 476 H, C-React Prot Ext Range < 2.90, Rheumatoid Factor < 10.0, HIV 1&2 Antibody Non-Reactive D/C Instructions Discharge Diet: - (gastroparesis diet) Meaningful Use Info Meaningful Use Meaningful Use Diagnoses (Choose all that apply): None applicable Ischemic Stroke Statin Dosing Therapy Reference: STATIN DOSE THERAPY REFERENCE: * Patients > 75 years receive moderate or high dose statin therapy. * Patients 75 years or YOUNGER should receive HIGH intensity statin dose unless contraindicated. You will be required to document reason for non-treatment if statin daily dose does not meet guidelines. HIGH DOSE STATIN THERAPY DAILY Atorvastatin > than or = to 40 mg Rosuvastatin > than or = to 20 mg Amlodipine + Atorvastatin > than or = to 2.5/40 mg Ezetimibe + Simvastatin 10/80 mg Simvastatin 80mg Discharge Plan Admission Admit Date/Time: 11/03/23 20:47 Primary Reason for Your Visit: Abdominal pain and nausea with vomiting Attending Provider: Anurag Hernandez Primary Care Provider: Care Physician,No Primary Consulting Providers: Sandra Retana Instructions Additional Instructions / Restrictions: Please take your new medications as noted below. Follow-up with the GI clinic as needed. Discharge Orders/Prescriptions Prescriptions: New omeprazole 20 mg tablet,delayed release (DR/EC) 20 mg PO BID 30 Days Qty: 60 2RF metoclopramide HCl [Reglan] 5 mg tablet 5 mg PO TIDCM 21 Days Qty: 63 0RF prednisone 20 mg tablet 20 mg PO DAILY 30 Days Qty: 30 0RF Continued buprenorphine-naloxone 1 EACH film 1 ea sublingual BID Referrals / Follow Up: Dayo Rutherford DO [Med Staff - Active Staff] - Care Physician,No Primary [Primary Care Provider] - Disposition Disposition (needs filled in before D/C Order can be placed): Home, Self Care
[2023-11-09 13:07] LABS: Anti-Centromere B Ab <0.2 AI (0.0-0.9); Anti-Chromatin <0.2 AI (0.0-0.9); Anti-Jo <0.2 AI (0.0-0.9); Anti-Scleroderma-70 AB <0.2 AI (0.0-0.9); Anti-dsDNA Ab <1 IU/mL (0-9); RNP Ab 0.2 AI (0.0-0.9); SJOGREN'S Anti-SS-A test < 0.2 AI (0.0-0.9); SJOGREN'S Anti-SS-B test < 0.2 AI (0.0-0.9); Smith Ab <0.2 AI (0.0-0.9)
[2023-11-17 16:10] LABS: Aldolase 4.5 U/L (3.3-10.3); Chromogranin A 80.9 ng/mL (0.0-101.8); Dopamine, Pl <30 pg/mL (0-48); Epinephrine, Pl 132 pg/mL (0-62); Norepinephrine, Pl 209 pg/mL (0-874)
[2023-11-18 11:10] LABS: Anti-Cardiolipin Ab, IgG, Qn < 9 GPL U/mL (0-14); Anti-Cardiolipin Ab, IgM, Qn < 9 MPL U/mL (0-12); Anti-Thrombin 3 AG, Immunol 93 % (72-124); Antithrombin 3 Function 115 % (75-135); Beta-2-Glycoprotein I IgA <9 (0-25); Beta-2-Glycoprotein I IgG <9 (0-20); Beta-2-Glycoprotein I IgM <9 (0-32); Protein C Antigen 69 % (60-150); Protein C, Functional 89 % (73-180)
[2023-11-24 13:00] LABS: ACCA 12 units (0-90); ALCA 4 units (0-60); AMCA 20 units (0-100); Albumin 4.2 g/dL (2.9-4.4); Alpha-1-Globulins 0.3 g/dL (0.0-0.4); Alpha-2-Globulins 0.7 g/dL (0.4-1.0); CCP IgG Antibodies 4 units (0-19); Ceruloplasmin 22.6 mg/dL (16.0-31.0); Complement C3 103 mg/dL (82-167); Complement CH50 51 U/mL (>41); Copper, Serum or Plasma 96 ug/dL (69-132); Cytoplasmic Ab (C-ANCA) <1:20 titer (Neg:<1:20); Deamidated Gliadin IgA 3 units (0-19); Deamidated Gliadin IgG 4 units (0-19); Endomysial Antibody IgA Negative (Negative); Gamma Globulin 1.3 g/dL (0.4-1.8); HEPATITIS B SURFACE AG Negative (Negative); Hep C Antibodies Reactive (Non Reactive); Hepatitis A IgM Antibody Negative (Negative); Hepatitis B Core AB IgM Negative (Negative); IgG, Quant 1279 mg/dL (603-1613); Immunoglobulin A 214 mg/dL (90-386); Immunoglobulin E 26 IU/mL (6-495); Immunoglobulin G, Subclass 1 601 mg/dL (248-810); Immunoglobulin G, Subclass 2 325 mg/dL (130-555); Immunoglobulin G, Subclass 3 90 mg/dL (15-102); Immunoglobulin G, Subclass 4 144 mg/dL (2-96); Immunoglobulin M 95 mg/dL (20-172); PROEL- TOTAL PROTEIN 7.3 g/dL (6.0-8.5); Perinuclear Ab (P-ANCA) <1:20 titer (Neg:<1:20); gASCA 21 units (0-50); t-Transglutaminase IgA <2 U/mL (0-3)
[2023-11-24 13:02] LABS: Immunoglobulin G 1279
== END 2023-11-06 17:58 | disposition home or self-care (01) ==
LOC: ED 20:29 → MS3 21:59
PROVIDERS: Emergency Medicine; Internal Medicine Gastroenterology; Admitting Provider Family Medicine; Emergency Provider Surgery; Visit Provider Hospitalist
PROC: 0DJD8ZZ Inspection of Lower Intestinal Tract, Via Natural or Artificial Opening Endoscopic (ICD-10-PCS; CPT 45378; principal; 2023-11-06 11:25)
DX: R10.13 Epigastric pain (principal); F11.23 Opioid dependence with withdrawal; K21.9 Gastro-esophageal reflux disease without esophagitis; F12.90 Cannabis use, unspecified, uncomplicated; K63.89 Other specified diseases of intestine; E87.1 Hypo-osmolality and hyponatremia; E87.6 Hypokalemia; Z87.891 Personal history of nicotine dependence; K29.70 Gastritis, unspecified, without bleeding; L65.9 Nonscarring hair loss, unspecified; R11.2 Nausea with vomiting, unspecified; R63.4 Abnormal weight loss; R11.15 Cyclical vomiting syndrome unrelated to migraine; Z86.19 Personal history of other infectious and parasitic diseases; R19.7 Diarrhea, unspecified; R10.11 Right upper quadrant pain; Z79.899 Other long term (current) drug therapy; E86.0 Dehydration; E80.7 Disorder of bilirubin metabolism, unspecified; R63.6 Underweight; Z68.1 Body mass index [BMI] 19.9 or less, adult
CPT/HCPCS: 43239; 45380; 85303; 74177; 80053; 80074; 80307; 81001; 81240; 81241; 82085; 82384; 82390; 82525; 82550; 82728; 82784; 82785; 82787; 83516; 83540; 83550; 83605; 83690; 83735; 84100; 84165; 85025; 85027; 85300; 85301; 85302; 86036; 86140; 86146; 86147; 86160; 86162; 86200; 86225; 86235; 86255; 86256; 86316; 86334; 86431; 86671; 86703; 88305; 88342; 93005; 96361; 96365; 96366; 96368; 96372; 96375; 96376; 97802; 99221; 99284; 99406; J7030; J7040; J7050; Q9967; A4216; G0378; J2405

== ENCOUNTER 2024-01-25 10:44 | Emergency (ER) | payer MEDICAID, SELFPAY ==
[2024-01-25 10:44] VITALS: BP 143/110; PULSE 110; RESP 18; TEMP 36.2; O2SAT 98; BMI 17.4
--- NOTE | 2024-01-25 10:58 | ED.RN ---
pt. admits to not using marijuana for a few days but normally smokes marijuana a couple times a week. Pt. and grandma voice concerns over nothing being done. But pt. does not appear to have properly followed up.
--- NOTE | 2024-01-25 11:09 | CT_ITS ---
STUDY: CT ABDOMEN AND PELVIS WITH CONTRAST REASON FOR EXAM: Male, 38 years old. rlq pain, vtg, chrons RADIATION DOSAGE (If Supplied By Facility): CTDIvol = ( 6.85 ) mGy, DLP = ( 330.49 ) mGycm TECHNIQUE: Transaxial images were obtained from the dome of the diaphragm to the symphysis pubis without oral contrast. IV 100mL Isovue-300 was administered. Sagittal and coronal images were reconstructed. Individualized dose optimization techniques were used for this CT. COMPARISON: Comparison is made with prior study dated November 03, 2023. FINDINGS: The visualized lung bases are unremarkable. The visualized portions of the heart are within normal limits. There is decreased attenuation of the liver consistent with steatosis. Stable subcentimeter nodule in the left lobe of the liver. Normal gallbladder and extrahepatic biliary system. Normal spleen. Normal pancreas. Normal bilateral adrenal glands. Normal right kidney. Normal left kidney. There is a small hiatal hernia. Normal small intestine. Fecal material is seen in the distal colon. Months again, there is evidence of mural thickening of the rectosigmoid colon. The appendix is visualized and appears normal. Normal abdominal aorta. Normal inferior vena cava. Normal retroperitoneum. Normal urinary bladder. Normal abdominal wall. Normal osseous structures. CT/Abdomen/Pelvis W IV Cont ONLY IMPRESSION: Mural thickening of the rectosigmoid colon. Electronically Signed: Jordi Yeung MD at 12:49 EST ,
--- NOTE | 2024-01-25 11:10 | EDS_ITS ---
HPI HPI - GI History of Present Illness Chief Complaint: Abd Pain Informant: patient and parent Narrative Narrative: 38-year-old male states he feels like he is having a Crohn's flareup for the past 3 days. He typically does have right lower quadrant pain and nausea most days, but in the last few he has been vomiting uncontrollably, and his pain has been severe. Still right lower quadrant. He states when he has stools they are formed. No blood. He does occasionally have mucus and that has been more in the last [address] Rutherford recently as an outpatient, had scopes, diagnosed with Crohn's for the first time within the last couple months, but the patient states he is not on any treatment for Crohn's yet because he has to have his hepatitis C addressed first. He presumably has hepatitis C from a history of IV drug use. He is currently on Suboxone and does not use IV drugs anymore but he does use marijuana frequently although not the last couple days. [facility] Medical History Anxiety and depression Hepatitis C Cyclical vomiting with nausea Chronic abdominal pain Wears contact lenses Restless legs Migraine headache Injury of head and neck Gastric reflux Former smoker Substance abuse Polysubstance (including opioids) dependence, daily use Pilon fracture of right tibia Home Medications ?Medication ?Instructions ?Recorded ?Last Taken ?Type buprenorphine 8 mg-naloxone 2 mg 1 ea sublingual BID 08/19/19 Unknown History sublingual film metoclopramide HCl 5 mg tablet 5 mg PO TIDCM 21 days #63 tabs 11/06/23 Unknown Rx (Reglan) omeprazole 20 mg tablet,delayed 20 mg PO BID 30 days #60 tabs 11/06/23 Unknown Rx release prednisone 20 mg tablet 20 mg PO DAILY 30 days #30 tabs 11/06/23 Unknown Rx prochlorperazine 25 mg rectal 25 mg IL QHS nausea and vomiting 11/23/23 Unknown Rx suppository #12 ea prochlorperazine maleate 10 mg 10 mg PO TID PRN nausea and 11/23/23 Unknown Rx tablet vomiting #90 tabs ondansetron HCl 8 mg tablet 8 mg PO Q8H PRN nausea and 11/24/23 Unknown Rx vomiting #90 tabs hyoscyamine sulfate 0.125 mg 0.125 mg PO BID dyspepsia #60 tabs 12/03/23 Unknown Rx disintegrating tablet prochlorperazine 25 mg rectal 25 mg IL BID PRN nausea and 12/03/23 Unknown Rx suppository vomiting #12 ea scopolamine base 1 mg over 3 days 1 patch transdermal Q72H #10 ea 12/24/23 Unknown Rx transdermal patch Allergy/AdvReac Type Severity Reaction Status Date / Time No Known Allergies Allergy Verified 01/25/24 10:47 Family History Grandmother Heart disease Hypertension CAD (coronary artery disease) Myocardial infarction Mother No problems noted. Surgical History Status post open reduction and internal fixation (ORIF) of fracture Social History household members: none Smoking Status: Current every day smoker tobacco type: cigarettes how long ago did patient quit smoking: Quit ~ 6 months prior, smoked 1/2 ppd since 27 until quit. alcohol intake: never substance use type: former substance user Date of last use: Former heroin, cocaine, crystal meth and benzodiazepine usage. and marijuana ROS ROS ED Constitutional Constitutional ED: Reports malaise and weakness; Denies chills or fever(s) Eyes Eyes: Denies change in vision or diplopia ENT ENT ED: Denies rhinorrhea or sore throat Cardiovascular Cardiovascular: Denies chest pain or palpitations Respiratory/Chest Respiratory/Chest: Denies cough or dyspnea Gastrointestinal Gastrointestinal: Reports abdominal pain, nausea and vomiting; Denies diarrhea, hematemesis, hematochezia or melena Genitourinary Genitourinary ED: Denies dysuria or hematuria Musculoskeletal Musculoskeletal: Denies back pain or neck pain Integumentary Denies abscess or rash Neurologic Neurologic: Denies headache(s), paresthesias or weakness Psychiatric Psychiatric: Reports anxiety; Denies suicidal thoughts EXAM Physical Exam Const Vital Signs: 01/25/24 10:44 01/25/24 12:44 01/25/24 14:04 Temperature 97.1 F L Temperature Source Temporal Pulse Rate 110 H 79 93 Respiratory Rate 18 16 Blood Pressure 143/110 H 124/72 H Blood Pressure Mean 121 89 Pulse Ox 98 100 Oxygen Delivery Method Room Air Positive well nourished and well developed General Appearance ED: well developed and NAD HEENT Reports moist mucous membranes normocephalic and atraumatic Eyes PERRL and EOMs intact bilaterally Neck full ROM and supple Resp normal respiratory effort and clear to auscultation bilaterally Cardio regular rate, regular rhythm and no murmurs Rate: Negative for tachycardic GI non-distended GI Narrative: Moderate-severe tenderness right lower quadrant without guarding or rebound. No other abdominal tenderness. Auscultation: normoactive bowel sounds Palpation: soft Back/Spine no CVA tenderness General Back: other FROM Extremity normal to inspection General Extremety ED: Negative for edema, pulses abnormal or tenderness General Extremity: Negative for edema or pulses abnormal Neuro oriented x3, CN's II-XII intact bilaterally and no sensory deficits noted Sensorium / Orientation: awake and alert Motor Exam: strength 5/5 throughout Psych Mood & Affect: anxious Skin no rashes or lesions noted and no wounds MDM MDM MDM Narrative Medical decision making narrative: Patient with a history of Crohn's saying he feels like he has a Crohn's exacerbation except is not having any diarrhea or bright red blood per rectum, obtain a CT given the amount of pain patient is into rule out complication such as a bowel obstruction. I reviewed the CT images and the report which I agree with, it is negative for any acute except for some mild or rectosigmoid mural thickening. After pain and nausea medications patient to much better and tolerating oral fluids. However subsequently started vomiting again, and is continued despite Zofran. States is very uncomfortable. Discussed w/ Friend. Given the patient's symptoms and CT/lab results, he states this does n ot sound like a Crohn's exacerbation. Patient is a known marijuana smoker and admittedly is quite anxious. Therefore I considered the possibility of cannabinoid hyperemesis syndrome. He still very uncomfortable so ordered Thorazine and Benadryl combination. I discussed with him, he states he does smoke marijuana occasionally, but is very annoyed that I question him about it and basically states that I am accusing him of causing the symptoms which I explained I am not. He was still amenable to getting the medications. Lab Data Attestation: I reviewed the patient's lab results. Labs: Laboratory Results - last 24 hr 01/25/24 11:50 WBC 7.0 RBC 4.76 Hgb 14.1 Hct 40.3 MCV 84.7 MCH 29.6 MCHC 35.0 RDW Std Deviation 37.2 RDW Coeff of Bennie 12.1 Plt Count 267 MPV 10.4 Immature Gran % (Auto) 1.700 H Neut % (Auto) 87.5 H Lymph % (Auto) 8.3 L Kimball % (Auto) 2.4 Eos % (Auto) 0.0 Baso % (Auto) 0.1 Absolute Neuts (auto) 6.1 Absolute Lymphs (auto) 0.58 L Nucleated RBC % 0 Sodium 137 Potassium 4.6 Chloride 104 Carbon Dioxide 24.0 Anion Gap 9 BUN 16 Creatinine 0.91 Estim Creat Clear Calc 102.96 Est GFR (MDRD) Af Amer 121 Est GFR (MDRD) Non-Af 100 BUN/Creatinine Ratio 17.6 Glucose 124 H Calcium 10.1 Total Bilirubin 1.20 H AST 30 ALT 19 Alkaline Phosphatase 55 Total Protein 8.8 H Albumin 4.8 Globulin 4.0 Albumin/Globulin Ratio 1.2 Lipase 25 Radiography Diagnostic Testing: Clinical Impression(s) from Imaging Studies Abdomen/Pelvis CT 01/25/24 11:09 IMPRESSION: Mural thickening of the rectosigmoid colon. Electronically Signed: Jordi Yeung MD at 12:49 EST , Management Discussion w/another healthcare provider: Administrative Assistant Front Desk (GI doctor friend) Discharge Plan Triage Chief Complaint: Abd Pain ED Provider: Quentin Hu Dx/Rx/DC Orders Clinical Impression: N&V (nausea and vomiting), Abdominal pain, right lower quadrant, Crohn's disease Instructions: ED Vomiting (Adult) Prescriptions: No Action prochlorperazine 25 mg suppository 25 mg IL BID PRN (Reason: nausea and vomiting) Qty: 12 2RF hyoscyamine sulfate 0.125 mg tablet,disintegrating 0.125 mg PO BID Qty: 60 0RF buprenorphine-naloxone 1 EACH film 1 ea sublingual BID omeprazole 20 mg tablet,delayed release (DR/EC) 20 mg PO BID 30 Days Qty: 60 2RF metoclopramide HCl [Reglan] 5 mg tablet 5 mg PO TIDCM 21 Days Qty: 63 0RF prednisone 20 mg tablet 20 mg PO DAILY 30 Days Qty: 30 0RF prochlorperazine 25 mg suppository 25 mg IL QHS Qty: 12 5RF prochlorperazine maleate 10 mg tablet 10 mg PO TID PRN (Reason: nausea and vomiting) Qty: 90 1RF ondansetron HCl 8 mg tablet 8 mg PO Q8H PRN (Reason: nausea and vomiting) Qty: 90 2RF scopolamine base 1 mg over 3 days patch 3 day 1 patch transdermal Q72H Qty: 10 0RF Primary Care Provider: Shira Webb Referrals: Shira Webb, [Primary Care Provider] - As soon as possible Activity Restrictions/Additional Instructions: In some people who smoke cannabinoids (marijuana or synthetics), it can cause something called cannabinoid hyperemesis syndrome, characterized by abdominal pain and intractable vomiting. There is no test for it. The treatment is to avoid smoking/using these substances. It may be worth trying since your symptoms are so prominent. Print Language: Qatari Disposition Disposition: Home, Self Care
[2024-01-25] MEDS: 0.9% Normal Saline (1000mL) 1,000 ML 999 ML IV (11:44)
[2024-01-25] MEDS: Metoclopramide 10 MG/2 ML Vial 5 MG IV (11:45)
[2024-01-25] MEDS: LORazepam 2 MG/ML Syringe 1 MG IV (11:46)
[2024-01-25] MEDS: Morphine 4 MG/ML Syringe IV (11:46)
[2024-01-25 12:02] LABS: Absolute Lymphocyte Count 0.58 X10^3/uL (0.83-4.51); Absolute Neutrophil Count 6.1 X10^3/uL (2.0-7.7); Basophil# 0.01 X10^3/uL; Basophil% 0.1 % (0-1); Hematocrit 40.3 % (40-54); Hemoglobin 14.1 g/dL (13.0-16.5); Lymphocyte # 0.58 X10^3/ul (0.83-4.51); Lymphocyte % 8.3 % (19-41); Mean Corpuscular Hgb 29.6 pg (27.0-32.0); Mean Corpuscular Volume 84.7 fL (80-94); Mean Platelet Vol. 10.4 fl (6.2-12.0); Monocyte# 0.17 X10^3/uL; Monocyte% 2.4 % (0-10); NRBC Flagged by Analyzer 0 % (0-5); Neutrophil # 6.11 X10^3/uL (2.7-7.7); Neutrophil % 87.5 % (47-70); POSITIVE DIFFERENTIAL YES; Platelet Count 267 K/mm3 (150-450); RBC Distribution Width CV 12.1 % (11.6-14.6); RBC Distribution Width SD 37.2 fl (35.1-43.9); Red Blood Count 4.76 M/mm3 (4.6-6.2)
[2024-01-25 12:17] LABS: ALB/GLOB Ratio 1.2 RATIO (0.9-2.4); AST(SGOT) 30 U/L (15-37); Alanine Aminotransfer ALT/SGPT 19 U/L (16-61); Albumin, Serum 4.8 g/dL (3.2-5.0); Alkaline Phosphatase 55 U/L (45-117); Anion Gap 9 (5-15); BUN 16 mg/dL (7-18); BUN/Creat Ratio 17.6 RATIO (10-20); Calcium,Total 10.1 mg/dL (8.5-10.1); Chloride 104 mmol/L (98-107); Creatinine, Serum 0.91 mg/dL (0.70-1.30); EST Glomerular Filtration Rate 100 mL/min (>60); Est Glom Filt Rate - Afr Amer 121 mL/min (>60); Estimated Creatinine Clearance 102.96 ml/min; Glucose 124 mg/dL (74-106); Lipase 25 U/L (13-75); Potassium 4.6 mmol/L (3.5-5.1); Protein, Total 8.8 g/dL (6.4-8.2); Sodium Level 137 mmol/L (136-145)
[2024-01-25 12:44] VITALS: PULSE 79; RESP 16; O2SAT 100
[2024-01-25 14:04] VITALS: BP 124/72; PULSE 93
[2024-01-25] MEDS: Ondansetron 4 MG/2 ML Vial IV (14:48)
--- NOTE | 2024-01-25 16:20 | ED.RN ---
This RN went into medicate patient with Thorazine and Benadryl per order. Pt. states Thorazine for crazy people I have told you guys a thousand fucking times that something is wrong. This RN reiterated to pt. that the medication was for his symptoms of nausea. pt. stated well i am not staying for that infusion pt. left. with grandma before getting any discharge instructions. PIV removed by this RN.
== END 2024-01-25 16:32 | disposition home or self-care (01) ==
PROVIDERS: Emergency Provider Emergency Medicine; PCP Family Medicine; Visit Provider Emergency Medicine
DX: R10.31 Right lower quadrant pain (principal); K50.90 Crohn's disease, unspecified, without complications; R11.2 Nausea with vomiting, unspecified; F12.90 Cannabis use, unspecified, uncomplicated; Z87.891 Personal history of nicotine dependence
CPT/HCPCS: 74177; 80053; 83690; 85025; 96361; 96374; 96375; 99282; Q9967; A4216; J2405